=== PATIENT | female | born 1970 | race Caucasian/White ===

== ENCOUNTER 2016-06-28 00:22 | Emergency (ER) | payer OTHER, SELFPAY ==
[2016-06-28] MEDS ORDERED: Zofran 4 MG/2 ML VIAL IV ONE (00:53)
[2016-06-28] MEDS ORDERED: PROTONIX 40 MG IV IV ONE ×2 (00:53→01:04)
[2016-06-28] MEDS ORDERED: Sodium Chloride 0.9% 1000 ML 1,000 ML IV STA ×2 (00:53→02:28)
[2016-06-28] MEDS ORDERED: GI COCKTAIL 60ML (Belladonn/Phenobarb/Lidoc PO ONE (00:54)
[2016-06-28] MEDS ORDERED: Zofran 4 MG/2 ML VIAL ONE (01:03)
--- NOTE | 2016-06-28 01:03 | ERPHSYRPT ---
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 DENIES DIARRHEA OR ABDOMINAL PAIN, FEVER OR CHILLS. Timing/Duration: today Activities at Onset: none Quality: cramping Abdominal Pain Onset Location: epigastric Pain Radiation: no radiation Severity of Pain-Max: mild Severity of Pain-Current: mild Modifying Factors: Improves With: nothing Associated Symptoms: heartburn Previous symptoms: no prior history Allergies/Adverse Reactions: morphine Adverse Reaction (Severe, Verified 06/28/16 00:39) burning, no rash Home Medications: Atorvastatin Calcium [Lipitor 40Mg] 40 mg PO DAILY 09/24/15 [History] Duloxetine HCl [Cymbalta] 60 mg PO DAILY 09/24/15 [History] Metformin HCl 500 mg [Glucophage 500 MG] 500 mg PO DAILY 09/24/15 [History ] Nabumetone [Relafen] 500 mg PO BID 10/23/15 [History] Pregabalin 50 mg [Lyrica 50MG] 150 mg PO TID 10/23/15 [History] Cyclobenzaprine HCl [Cyclobenzaprine 10 mg Tablet] 06/28/16 [History] Hx Tetanus, Diphtheria Vaccination/Date Given: Yes Hx Influenza Vaccination/Date Given: No Hx Pneumococcal Vaccination/Date Given: No - Review of Systems Constitutional: No Fever, No Chills Eyes: No Symptoms Ears, Nose, & Throat: No Symptoms Respiratory: No Symptoms, No Cough, No Dyspnea Cardiac: No Symptoms, No Chest Pain, No Edema, No Syncope Abdominal/Gastrointestinal: Nausea, Vomiting, No Abdominal Pain, No Diarrhea Genitourinary Symptoms: No Symptoms, No Dysuria Musculoskeletal: No Symptoms, No Back Pain, No Neck Pain Skin: No Symptoms, No Rash Neurological: No Dizziness, No Focal Weakness, No Sensory Changes Psychological: No Symptoms Endocrine: No Symptoms All Other Systems: Reviewed and Negative - Past Medical History Pertinent Past Medical History: Yes Neurological History: Seizures ENT History: No Pertinent History Cardiac History: High Cholesterol, Hypertension Respiratory History: No Pertinent History, COPD Endocrine Medical History: Diabetes Type II Musculoskeletal History: Osteoarthritis History: No Pertinent History Psycho-Social History: Depression Female Reproductive Disorders: No Pertinent History Other Medical History: 3 hernias - Past Surgical History Past Surgical History: Yes Neuro Surgical History: No Pertinent History Cardiac: No Pertinent History Respiratory: No Pertinent History Gastrointestinal: Cholecystectomy Female Surgical History: Section, Tubal Ligation Other Surgical History: hand surgery removal of for obj - Social History Smoking Status: Current every day smoker How long have you smoked: 27 YRS Exposure to second hand smoke: Yes Drug Use: none Patient Lives Alone: No - Female History Hx Last Menstrual Period: 3 months Hx Now: No - Nursing Vital Signs Nursing Vital Signs: Initial Vital Signs Temperature 98.3 F Temperature Source Oral Pulse Rate 80 Respiratory Rate 16 Blood Pressure [Right Arm] 130/78 Pain Intensity 3 - Physical Exam General Appearance: no apparent distress, alert Eye Exam: PERRL/EOMI, eyes nml inspection Ears, Nose, Throat Exam: normal ENT inspection, pharynx normal, moist mucous membranes Neck Exam: normal inspection, non-tender, supple, full range of motion Respiratory Exam: normal breath sounds, lungs clear, No respiratory distress Cardiovascular Exam: regular rate/rhythm, normal heart sounds Gastrointestinal/Abdomen Exam: soft, normal bowel sounds, other (NONTENDER), No tenderness, No mass Back Exam: normal inspection, normal range of motion, No CVA tenderness, No vertebral tenderness Extremity Exam: normal inspection, normal range of motion, pelvis stable Neurologic Exam: alert, oriented x 3, cooperative, normal mood/affect, nml cerebellar function, sensation nml, No motor deficits Skin Exam: normal color, warm, dry SpO2 Interpretation: normal SpO2: 98 Oxygen Delivery: Room Air Ordered Tests: Active Orders 24 hr Category Date Time Status Clean Catch Urine Specimen STAT Care 06/28/16 01:00 Active IV Insertion STAT Care 06/28/16 00:53 Active AMYLASE Stat Lab 06/28/16 01:17 Completed CBC W DIFF Stat Lab 06/28/16 01:17 Completed CMP Stat Lab 06/28/16 01:17 Completed LIPASE Stat Lab 06/28/16 01:17 Completed UA W/ MICROSCOPIC Stat Lab 06/28/16 01:17 Completed Urine Triage Profile Stat Lab 06/28/16 01:17 Completed Medication Summary Discontinued Medications Generic Name Dose Route Start Last Admin Trade Name Chiquita PRN Reason Stop Dose Admin Al Hydrox/Mg Hydrox/Simethicone Confirm 06/28/16 01:04 Maalox Es 30 Ml Unit Dose Administered 06/28/16 01:05 Dose 30 ml .ROUTE .STK-MED ONE Belladonna Alkaloids/Phenobarbital 60 ml 06/28/16 00:54 06/28/16 01:16 Gi Cocktail 60ml (Belladonn/Phenobarb/Lidoc* PO 06/28/16 00:55 60 ml STAT ONE Administration Belladonna Alkaloids/Phenobarbital Confirm 06/28/16 01:05 Donnatol Liquid Administered 06/28/16 01:06 Dose 64.8 mg .ROUTE .STK-MED ONE Sodium Chloride 1,000 mls @ 999 mls/hr 06/28/16 00:53 06/28/16 01:17 Sodium Chloride 0.9% 1000 Ml IV 06/28/16 01:53 999 mls/hr .Q1H1M STA Administration Sodium Chloride Confirm 06/28/16 01:04 Sodium Chloride 0.9% 1000 Ml Administered 06/28/16 01:05 Dose 1,000 mls @ ud .ROUTE .STK-MED ONE Sodium Chloride 1,000 mls @ 999 mls/hr 06/28/16 02:28 06/28/16 02:41 Sodium Chloride 0.9% 1000 Ml IV 06/28/16 03:28 999 mls/hr .Q1H1M STA Administration Sodium Chloride Confirm 06/28/16 02:38 Sodium Chloride 0.9% 1000 Ml Administered 06/28/16 02:39 Dose 1,000 mls @ ud .ROUTE .STK-MED ONE Lidocaine HCl Confirm 06/28/16 01:04 Xylocaine Hcl Viscous * Administered 06/28/16 01:05 Dose 20 ml .ROUTE .STK-MED ONE Ondansetron HCl 4 mg 06/28/16 00:53 06/28/16 01:20 Zofran 4 Mg/2 Ml Vial IV 06/28/16 00:54 4 mg STAT ONE Administration Ondansetron HCl Confirm 06/28/16 01:03 Zofran 4 Mg/2 Ml Vial Administered 06/28/16 01:04 Dose 4 mg .ROUTE .STK-MED ONE Pantoprazole Sodium 40 mg 06/28/16 00:53 06/28/16 01:20 Protonix 40 Mg Iv IV 06/28/16 00:54 40 mg STAT ONE Administration Pantoprazole Sodium Confirm 06/28/16 01:04 Protonix 40 Mg Iv Administered 06/28/16 01:05 Dose 40 mg IV .STK-MED ONE Lab/Rad Data: Laboratory Result Diagrams 06/28/16 01:17 06/28/16 01:17 Laboratory Results 06/28/16 06/28/16 06/28/16 Range/Units 01:17 01:17 01:17 WBC 8.4 (4.0-10.5) K/mm3 RBC 5.23 (4.1-5.4) M/mm3 Hgb 14.6 (12.0-16.0) gm/dl Hct 44.2 (35-47) % MCV 84.5 (78-100) fl MCH 27.9 (26-32) pg MCHC 33.0 (32-36) g/dl RDW 13.6 (11.5-14.0) % Plt Count 249 (150-450) K/mm3 MPV 10.7 H (6-9.5) fl Gran % 57.4 (36.0-66.0) % Lymphocytes % 27.3 (24.0-44.0) % Monocytes % 11.1 (0.0-12.0) % Eosinophils % 3.6 (0.00-5.0) % Basophils % 0.6 (0.0-0.4) % Basophils # 0.05 (0-0.4) Sodium 142 (136-145) mEq/L Potassium 3.7 (3.5-5.1) mEq/L Chloride 107 (98-107) mEq/L Carbon Dioxide 25.4 (21-32) mEq/L Anion Gap 13.4 (5-15) MEQ/L BUN 13 (9-20) mg/dL Creatinine 0.89 (0.55-1.30) mg/dl Estimated GFR > 60 ML/MIN Glucose 99 (70-110) MG/DL Calcium 8.7 (8.5-10.1) mg/dL Total Bilirubin 0.3 (0.2-1.0) mg/dL AST 25 (15-37) U/L ALT 22 (12-78) U/L Alkaline Phosphatase 72 (46-116) U/L Serum Total Protein 7.0 (6.4-8.2) gm/dL Albumin 3.8 (3.4-5.0) g/dL Amylase 39 (25-115) U/L Lipase 127 (73-393) U/L Ur Collection Type Urine Color (YELLOW) Urine Appearance (CLEAR) Urine pH (5-6) Ur Specific Hope (1.005-1.025) Urine Protein (Negative) Urine Glucose (UA) (NEGATIVE) mg/dL Urine Ketones (NEGATIVE) Urine Nitrite (NEGATIVE) Urine Bilirubin (NEGATIVE) Urine Urobilinogen (0-1) mg/dL Urine WBC (Auto) (NEGATIVE) Urine RBC (Auto) (0-5) Michelet/ul Urine Microscopic RBC (0-2) /HPF Urine Microscopic WBC (0-5) /HPF Ur Epithelial Cells (FEW) /HPF Urine Bacteria (NEGATIVE) /HPF Urine Opiates Level NEG. (NEGATIVE) Ur Methadone NEG. (NEGATIVE) Urine Barbiturates NEG. (NEGATIVE) Ur Phencyclidine (PCP) NEG. (NEGATIVE) Urine Amphetamine NEG. (NEGATIVE) U Benzodiazepine Level NEG. (NEGATIVE) Urine Cocaine NEG. (NEGATIVE) Urine Marijuana (THC) NEG. (NEGATIVE) Specimen Received 06/28/16 Range/Units 01:17 WBC (4.0-10.5) K/mm3 RBC (4.1-5.4) M/mm3 Hgb (12.0-16.0) gm/dl Hct (35-47) % MCV (78-100) fl MCH (26-32) pg MCHC (32-36) g/dl RDW (11.5-14.0) % Plt Count (150-450) K/mm3 MPV (6-9.5) fl Gran % (36.0-66.0) % Lymphocytes % (24.0-44.0) % Monocytes % (0.0-12.0) % Eosinophils % (0.00-5.0) % Basophils % (0.0-0.4) % Basophils # (0-0.4) Sodium (136-145) mEq/L Potassium (3.5-5.1) mEq/L Chloride (98-107) mEq/L Carbon Dioxide (21-32) mEq/L Anion Gap (5-15) MEQ/L BUN (9-20) mg/dL Creatinine (0.55-1.30) mg/dl Estimated GFR ML/MIN Glucose (70-110) MG/DL Calcium (8.5-10.1) mg/dL Total Bilirubin (0.2-1.0) mg/dL AST (15-37) U/L ALT (12-78) U/L Alkaline Phosphatase (46-116) U/L Serum Total Protein (6.4-8.2) gm/dL Albumin (3.4-5.0) g/dL Amylase (25-115) U/L Lipase (73-393) U/L Ur Collection Type CLEAN CATCH Urine Color YELLOW (YELLOW) Urine Appearance CLEAR (CLEAR) Urine pH 5.5 (5-6) Ur Specific Hope 1.015 (1.005-1.025) Urine Protein NEGATIVE (Negative) Urine Glucose (UA) NEGATIVE (NEGATIVE) mg/dL Urine Ketones NEGATIVE (NEGATIVE) Urine Nitrite NEGATIVE (NEGATIVE) Urine Bilirubin NEGATIVE (NEGATIVE) Urine Urobilinogen 0.2 (0-1) mg/dL Urine WBC (Auto) NEGATIVE (NEGATIVE) Urine RBC (Auto) SMALL (0-5) Michelet/ul Urine Microscopic RBC 5-10 (0-2) /HPF Urine Microscopic WBC 0-2 (0-5) /HPF Ur Epithelial Cells MODERATE (FEW) /HPF Urine Bacteria FEW (NEGATIVE) /HPF Urine Opiates Level (NEGATIVE) Ur Methadone (NEGATIVE) Urine Barbiturates (NEGATIVE) Ur Phencyclidine (PCP) (NEGATIVE) Urine Amphetamine (NEGATIVE) U Benzodiazepine Level (NEGATIVE) Urine Cocaine (NEGATIVE) Urine Marijuana (THC) (NEGATIVE) Specimen Received 06/28/165 - Progress Progress: improved Progress Note: 06/28/16 00:58 PATIENT GIVEN IV NORMAL SALINE 1 LITER BOLUS X 2 ZOFRAN 4MG , PROTONIX 40MG IV 06/28/16 03:25 Counseled pt/family regarding: lab results, diagnosis, need for follow-up - Departure Time of Disposition: 03:35 Departure Disposition: Home Clinical Impression: ACUTE GASTRITIS Condition: Stable Critical Care Time: No Referrals: KHALIDA RICHARDS [Primary Care Provider] - Additional Instructions: ZOFRAN EVERY 4 HOURS NEEDED FOR NAUSEA. PEPCID 20MG TWICE DAILY FOR GASTRIC IRRITATION. CONSULT YOUR FAMILY PHYSICIAN FOR EVALUATION IN 1 WEEK. Prescriptions: Ondansetron [Zofran Odt] 4 mg PO Q4H PRN PRN #6 tab.rapdis PRN Reason: Nausea Famotidine 20 mg [Pepcid 20 MG] 20 mg PO BID #30 tablet
[2016-06-28] MEDS ORDERED: XYLOCAINE HCl Viscous ONE (01:04)
[2016-06-28] MEDS ORDERED: Sodium Chloride 0.9% 1000 ML 1,000 ML ONE ×2 (01:04→02:38)
[2016-06-28] MEDS ORDERED: MAALOX ES 30 ML UNIT DOSE ONE (01:04)
[2016-06-28] MEDS ORDERED: Donnatol Liquid ONE (01:05)
[2016-06-28 01:20] LABS: BASOPHIL % 0.6 % (0.0-0.4); Eosinophil % 3.6 % (0.00-5.0); Granulocytes % 57.4 % (36.0-66.0); Lymphocytes % 27.3 % (24.0-44.0); Mean Cell Volume 84.5 fl (78-100); Mean Corpuscular Hemoglobin 27.9 pg (26-32); Mean Platelet Volume 10.7 fl (6-9.5); Monocytes % 11.1 % (0.0-12.0); Platelet Count 249 K/mm3 (150-450); Red Blood Count 5.23 M/mm3 (4.1-5.4); Red Cell Distribution Width 13.6 % (11.5-14.0); White Blood Count 8.4 K/mm3 (4.0-10.5)
[2016-06-28 01:36] LABS: Bacteria FEW /HPF (NEGATIVE); COMPLETE URINE MICROSCOPIC? YES; Collection Type CLEAN CATCH; Epithelial Cells MODERATE /HPF (FEW); Ph 5.5 (5-6); WBC 0-2 /HPF (0-5)
[2016-06-28 01:39] LABS: ALBUMIN 3.8 g/dL (3.4-5.0); ALKALINE PHOSPHATASE 72 U/L (46-116); ANION GAP 13.4 MEQ/L (5-15); BILIRUBIN,TOTAL 0.3 mg/dL (0.2-1.0); BLOOD UREA NITROGEN 13 mg/dL (9-20); CHLORIDE 107 mEq/L (98-107); Carbon Dioxide 25.4 mEq/L (21-32); Glucose 99 MG/DL (70-110); LIPASE 127 U/L (73-393); Potassium 3.7 mEq/L (3.5-5.1); SGOT/AST 25 U/L (15-37); SGPT/ALT 22 U/L (12-78); SODIUM 142 mEq/L (136-145)
[2016-06-28 03:30] VITALS: O2SAT 98
[2016-06-28 03:52] VITALS: BP 132/76; PULSE 81
== END 2016-06-28 03:52 | disposition home or self-care (01) ==
LOC: ED 00:22
DX: K29.70 Gastritis, unspecified, without bleeding (principal)
CPT/HCPCS: 36000; 36415; 80053; 80307; 81000; 82150; 83690; 85025; 96360; 96361; 96374; 96375; 99284; J2405; A9270-GY

== ENCOUNTER 2017-05-20 12:46 | Emergency (ER) | payer OTHER ==
[2017-05-20] MEDS ORDERED: Nitrostat 0.4 MG (ED) SL ONE (13:06)
[2017-05-20] MEDS ORDERED: BABY ASPIRIN 81 MG CHEW PO ONE (13:06)
--- NOTE | 2017-05-20 13:06 | ERPHSYRPT ---
- History of Present Illness Time Seen by Provider: 05/20/17 12:59 Historian: patient Exam Limitations: no limitations Patient Subjective Stated Complaint: pt walked in co cp since 0400 this morning , no other cos Triage Nursing Assessment: pt arrrived per wc, resp easy,skin w/d/p,chest clear , no edema noted Physician History: The patient is a morbidly obese 46-year-old female with her mother complaining of left-sided chest pain with radiation down her left arm since 4:30 this morning or approximately 7 hours ago. She denies shortness of breath, nausea, or sweating. She was awaken from sleep with the pain. Her past medical history is significant for diabetes, hypertension, high cholesterol, GERD, and depression. Timing/Duration: today, hour(s) (7) Activities at Onset: sleep Quality: aching, sharpness Location: substernal Chest Pain Radiation: arm Severity of Pain-Max: moderate Severity of Pain-Current: moderate Modifying Factors: Improves With: nothing Associated Symptoms: No nausea, No vomiting, No shortness of breath, No cough, No diaphoresis Prior Chest Pain/Cardiac Workup: no prior chest pain Nitro Today/Relief: no nitro taken today Aspirin Treatment Today: 81 mg x 4, provided by ED Allergies/Adverse Reactions: morphine Adverse Reaction (Severe, Verified 05/20/17 12:55) burning, no rash Home Medications: Atorvastatin Calcium [Lipitor 40Mg] 40 mg PO DAILY 09/24/15 [History] Duloxetine HCl [Cymbalta] 60 mg PO DAILY 09/24/15 [History] Metformin HCl 500 mg [Glucophage 500 MG] 500 mg PO DAILY 09/24/15 [History ] Nabumetone [Relafen] 500 mg PO BID 10/23/15 [History] Pregabalin 50 mg [Lyrica 50MG] 150 mg PO TID 10/23/15 [History] Cyclobenzaprine HCl [Cyclobenzaprine 10 mg Tablet] 10 mg BID 06/28/16 [History] Aripiprazole 10 mg [Abilify 10 MG] 10 mg DAILY 05/20/17 [History] Lisinopril 10 mg [Zestril 10 MG] 10 mg DAILY 05/20/17 [History] Hx Tetanus, Diphtheria Vaccination/Date Given: Yes Hx Influenza Vaccination/Date Given: No Hx Pneumococcal Vaccination/Date Given: No Immunizations Up to Date: Yes - Review of Systems Constitutional: No Fever, No Chills Eyes: No Symptoms Ears, Nose, & Throat: No Symptoms Respiratory: No Cough, No Dyspnea Cardiac: Chest Pain, No Edema, No Syncope Abdominal/Gastrointestinal: No Abdominal Pain, No Nausea, No Vomiting, No Diarrhea Genitourinary Symptoms: No Dysuria Musculoskeletal: No Back Pain, No Neck Pain Skin: No Rash Neurological: No Dizziness, No Focal Weakness, No Sensory Changes Psychological: No Symptoms Endocrine: No Symptoms Hematologic/Lymphatic: No Symptoms Immunological/Allergic: No Symptoms All Other Systems: Reviewed and Negative - Past Medical History Pertinent Past Medical History: Yes Neurological History: Migraines, Peripheral Neuropathy, Seizures, Other ENT History: No Pertinent History Cardiac History: Hypertension Respiratory History: Emphysema Endocrine Medical History: Diabetes Type II Musculoskeletal History: Degenerative Disk Disease, Osteoarthritis History: No Pertinent History Psycho-Social History: Depression Female Reproductive Disorders: No Pertinent History Other Medical History: history of back pain, B shoulder pain in the rotator cuff muscles. - Past Surgical History Past Surgical History: Yes Neuro Surgical History: No Pertinent History Cardiac: No Pertinent History Respiratory: No Pertinent History Gastrointestinal: Cholecystectomy Female Surgical History: Section, Tubal Ligation Other Surgical History: hand surgery removal of for obj - Social History Smoking Status: Current every day smoker How long have you smoked: 27 YRS Exposure to second hand smoke: Yes Drug Use: none Patient Lives Alone: No - Female History Hx Last Menstrual Period: 04/14 Hx Now: No - Nursing Vital Signs Nursing Vital Signs: Initial Vital Signs Pulse Rate 96 H 05/20/17 13:30 Blood Pressure 161/107 05/20/17 13:30 Pain Scale Pain Intensity 10 - Physical Exam General Appearance: no apparent distress, alert Eye Exam: PERRL/EOMI, eyes nml inspection Ears, Nose, Throat Exam: normal ENT inspection Respiratory Exam: chest tenderness (left anterior chest pain, palpation reproduces pt's pain) Cardiovascular Exam: regular rate/rhythm, normal heart sounds Gastrointestinal/Abdomen Exam: soft, other (obese) Pelvic Exam: not done Rectal Exam: not done Back Exam: normal inspection, No CVA tenderness, No vertebral tenderness Extremity Exam: normal inspection, normal range of motion Neurologic Exam: alert, oriented x 3, cooperative, normal mood/affect, sensation nml, No motor deficits Skin Exam: normal color, warm, dry SpO2 Interpretation: normal - Course EKG Interpreted by Me: RATE, Sinus Rhythm, NORMAL AXIS, NORMAL INTERVALS, NORMAL QRS, NORMAL ST-T, Other (comp EKG 03/16/16.) - Radiology Exams Chest X-ray Interpretation: Reviewed by me, Teleradiologist Report, Negative (per Dr Sims) Ordered Tests: Active Orders 24 hr Category Date Time Status Home Health Clinical Supervisor STAT Care 05/20/17 13:07 Active EKG-ER Only STAT Care 05/20/17 13:06 Active IV Insertion STAT Care 05/20/17 13:06 Active CHEST 2 VIEWS (PA AND LAT) Stat Exams 05/20/17 13:06 Completed CBC W DIFF Stat Lab 05/20/17 13:31 Completed CMP Stat Lab 05/20/17 13:31 Completed NT PRO BNP Stat Lab 05/20/17 13:31 Completed TROPONIN Q3H Lab 05/20/17 13:31 Completed TROPONIN Q3H Lab 05/20/17 16:15 Ordered TROPONIN Q3H Lab 05/20/17 19:15 Ordered TROPONIN Q3H Lab 05/20/17 22:15 Ordered TROPONIN Q3H Lab 05/21/17 01:15 Ordered Medication Summary Generic Name Dose Route Start Last Admin Trade Name Freq PRN Reason Stop Dose Admin Nitroglycerin 0.4 mg 05/20/17 13:39 05/20/17 13:40 Nitrostat 0.4 Mg Tablet SL 06/19/17 13:38 0.4 mg PRN PRN Administration CHEST PAIN Discontinued Medications Generic Name Dose Route Start Last Admin Trade Name Freq PRN Reason Stop Dose Admin Al Hydrox/Mg Hydrox/Simethicone Confirm 05/20/17 13:53 Maalox Es 30 Ml Unit Dose Administered 05/20/17 13:54 Dose 30 ml .ROUTE .STK-MED ONE Aspirin 324 mg 05/20/17 13:06 05/20/17 13:20 Baby Aspirin 81 Mg Chew PO 05/20/17 13:07 324 mg STAT ONE Administration Lidocaine HCl Confirm 05/20/17 13:52 Xylocaine Hcl Viscous * Administered 05/20/17 13:53 Dose 15 ml .ROUTE .STK-MED ONE Magnesium Hydroxide 45 ml 05/20/17 14:39 Gi Cocktail 45 Ml (Maalox/Lidocaine) PO 05/20/17 14:40 STAT ONE Nitroglycerin 0.4 mg 05/20/17 13:06 05/20/17 13:20 Nitrostat 0.4 Mg (Ed) SL 05/20/17 13:07 0.4 mg STAT ONE Administration Lab/Rad Data: Laboratory Result Diagrams 05/20/17 13:31 05/20/17 13:31 Laboratory Results 05/20/17 05/20/17 05/20/17 Range/Units 13:31 13:31 13:31 WBC 9.9 (4.0-10.5) K/mm3 RBC 5.51 H (4.1-5.4) M/mm3 Hgb 15.7 (12.0-16.0) gm/dl Hct 46.2 (35-47) % MCV 83.8 (78-100) fl MCH 28.4 (26-32) pg MCHC 34.0 (32-36) g/dl RDW 13.7 (11.5-14.0) % Plt Count 308 (150-450) K/mm3 MPV 11.4 H (6-9.5) fl Sodium 143 (136-145) mEq/L Potassium 3.7 (3.5-5.1) mEq/L Chloride 105 (98-107) mEq/L Carbon Dioxide 27.8 (21-32) mEq/L Anion Gap 14.0 (5-15) MEQ/L BUN 5 L (9-20) mg/dL Creatinine 0.85 (0.55-1.30) mg/dl Estimated GFR > 60 ML/MIN Glucose 174 H (70-110) MG/DL Calcium 8.7 (8.5-10.1) mg/dL Total Bilirubin 0.30 (0.2-1.0) mg/dL AST 28 (15-37) U/L Alkaline Phosphatase 84 (46-116) U/L Troponin I 0.136 H* (0.000-0.056) ng/ml NT-Pro-B Natriuret Pep 26 (0-125) pg/ml Serum Total Protein 7.3 (6.4-8.2) gm/dL Albumin 3.9 (3.4-5.0) g/dL - Progress Progress Note: 05/20/17 14:46 The patient was given aspirin 324 milligrams chewable and nitroglycerin 0.4 mg sublingual 3 without relief of her chest pain. She refused a GI cocktail. - Departure Time of Disposition: 15:03 Departure Disposition: Transfer (transfer to [facility] per Dr Caal) Clinical Impression: Chest pain, Elevated troponin Condition: Stable Critical Care Time: No Referrals: KHALIDA RICHARDS [Primary Care Provider] - Additional Instructions: You have chest pain. You also have an elevated troponin level. You were given aspirin 324 mg chewable orally and nitroglycerin 0.4 mg sublingual 3 in the ER. You are also placed upon a nitroglycerin drip. You were given Lovenox 110 units subcutaneous. You're being transferred to regional ER per Dr. Caal.
--- NOTE | 2017-05-20 13:29 | XRAY ---
Indication: Cough and chest pain. Comparison: March 16, 2016. PA/lateral chest again demonstrates normal heart and lungs with stable lingular calcified granuloma. Bony thorax intact with mild degenerative changes. No new/acute findings.
[2017-05-20] MEDS: Nitrostat 0.4 MG Tablet SL PRN ×2 (13:30→13:40)
[2017-05-20] MEDS ORDERED: XYLOCAINE HCl Viscous ONE (13:52)
[2017-05-20] MEDS ORDERED: MAALOX ES 30 ML UNIT DOSE ONE (13:53)
[2017-05-20 14:01] LABS: ALBUMIN 3.9 g/dL (3.4-5.0); ALKALINE PHOSPHATASE 84 U/L (46-116); BLOOD UREA NITROGEN 5 mg/dL (9-20); CHLORIDE 105 mEq/L (98-107); Calcium 8.7 mg/dL (8.5-10.1); Carbon Dioxide 27.8 mEq/L (21-32); Creatinine 1 0.85 mg/dl (0.55-1.30); EST GLOMERULAR FILTRATION RATE > 60 ML/MIN; Glucose 174 MG/DL (70-110); NT PRO BNP 26 pg/ml (0-125); Potassium 3.7 mEq/L (3.5-5.1); SGOT/AST 28 U/L (15-37); SODIUM 143 mEq/L (136-145); Total Protein 7.3 gm/dL (6.4-8.2)
[2017-05-20 14:24] VITALS: O2SAT 95
[2017-05-20 14:30] LABS: Hematocrit 46.2 % (35-47); Hemoglobin 15.7 gm/dl (12.0-16.0); Mean Cell Volume 83.8 fl (78-100); Mean Platelet Volume 11.4 fl (6-9.5); Platelet Count 308 K/mm3 (150-450); Red Blood Count 5.51 M/mm3 (4.1-5.4); Red Cell Distribution Width 13.7 % (11.5-14.0); White Blood Count 9.9 K/mm3 (4.0-10.5)
[2017-05-20 14:31] LABS: Mean Corpuscular Hemoglobin 28.4 pg (26-32)
[2017-05-20] MEDS ORDERED: GI COCKTAIL 45 ML (Maalox/Lidocaine) PO ONE (14:39)
[2017-05-20] MEDS ORDERED: ENOXAPARIN SODIUM SQ ONE ×2 (14:58→15:09)
[2017-05-20 14:59] LABS: BASOPHIL % 0.5 % (0.0-0.4); Eosinophil % 2.8 % (0.00-5.0); Granulocyte Absolute (ANC) 6.04 (1.4-6.9); Granulocytes % 60.9 % (36.0-66.0); Lymphocytes % 27.1 % (24.0-44.0); Monocytes % 8.7 % (0.0-12.0)
[2017-05-20 15:00] LABS: Basophil (Absolute #) 0.05 (0-0.4); Eosinophil (Absolute #) 0.28 (0-0.5); Lymphocyte (Absolute #) 2.69 (1.0-4.6); Monocyte (Absolute #) 0.86 (0.0-1.3)
[2017-05-20] MEDS ORDERED: Ntg 0.2MG/Ml in D5W GLASS*** 250 ML IV PRN (15:02)
[2017-05-20] MEDS ORDERED: Ntg 0.2MG/Ml in D5W GLASS*** 250 ML IV ONE (15:07)
[2017-05-20 15:40] VITALS: BP 150/104; PULSE 75
[2017-05-20 22:04] LABS: SGPT/ALT 42 U/L (12-78)
== END 2017-05-20 15:45 | disposition short-term general hospital (02) ==
LOC: ED 12:46
DX: R07.9 Chest pain, unspecified (principal); R77.8 Other specified abnormalities of plasma proteins; Z79.899 Other long term (current) drug therapy; E11.9 Type 2 diabetes mellitus without complications
CPT/HCPCS: 36000; 36415; 71046; 80053; 83880; 84484; 85025; 93005; 93041; 96365; 99285; J1650; A9270-GY

== ENCOUNTER 2019-03-09 10:14 | Emergency (ER) | payer MEDICAID, OTHER ==
--- NOTE | 2019-03-09 10:18 | ERPHSYRPT ---
- History of Present Illness Time Seen by Provider: 03/09/19 10:18 Source: patient Exam Limitations: no limitations Physician History: 48 y/o white female presents with bilat lower back pain for 4 days. no flank pain and no urinary sx. pt denies fall or acute trauma. pt woke up with sx 4 days ago. not relieved on her muscle relaxant zanaflex. pt states she has health insurance issues and it is too expensive for her to see her pcp. Timing/Duration: day(s) (4) Method of Injury: other (no injury) Quality: aching Back Pain Location: lumbar spine, paraspinous muscles Severity of Pain-Max: mild Severity of Pain-Current: mild Modifying Factors: Improves With: movement Associated Symptoms: lower back pain, muscle spasms Previous symptoms: same symptoms as today Allergies/Adverse Reactions: morphine Adverse Reaction (Severe, Verified 03/09/19 10:22) burning, no rash Home Medications: Duloxetine HCl [Cymbalta] 60 mg PO DAILY 09/24/15 [History] Metformin HCl 500 mg [Glucophage 500 MG] 1,000 mg PO BID 09/24/15 [History ] Lisinopril 10 mg [Zestril 10 MG] 10 mg DAILY 05/20/17 [History] Aspirin EC 81 mg [Ecotrin 81 mg] 81 mg PO DAILY 03/09/19 [History] Buspirone HCl 7.5 mg PO BID 03/09/19 [History] Famotidine 20 mg [Pepcid 20 MG] 40 mg PO DAILY 03/09/19 [History] Gabapentin 300 mg PO TID 03/09/19 [History] Oxybutynin Chloride [Oxybutynin Chloride ER] 10 mg PO DAILY 03/09/19 [History] Tizanidine HCl 4 mg PO BID 03/09/19 [History] Hx Tetanus, Diphtheria Vaccination/Date Given: Yes Hx Influenza Vaccination/Date Given: No Hx Pneumococcal Vaccination/Date Given: No - Review of Systems Constitutional: No Symptoms Eyes: No Symptoms Ears, Nose, & Throat: No Symptoms Respiratory: No Symptoms Cardiac: No Symptoms Abdominal/Gastrointestinal: No Symptoms Genitourinary Symptoms: No Symptoms Musculoskeletal: Back Pain Skin: No Symptoms Neurological: No Symptoms Psychological: No Symptoms Endocrine: No Symptoms Hematologic/Lymphatic: No Symptoms Immunological/Allergic: No Symptoms All Other Systems: Reviewed and Negative - Past Medical History Pertinent Past Medical History: Yes Neurological History: Migraines, Peripheral Neuropathy, Seizures, Other ENT History: No Pertinent History Cardiac History: Hypertension Respiratory History: Emphysema Endocrine Medical History: Diabetes Type II Musculoskeletal History: Degenerative Disk Disease, Osteoarthritis History: No Pertinent History Psycho-Social History: Depression Female Reproductive Disorders: No Pertinent History Other Medical History: history of back pain, B shoulder pain in the rotator cuff muscles. - Past Surgical History Past Surgical History: Yes Neuro Surgical History: No Pertinent History Cardiac: No Pertinent History Respiratory: No Pertinent History Gastrointestinal: Cholecystectomy Female Surgical History: Section, Tubal Ligation Other Surgical History: hand surgery removal of for obj - Social History Smoking Status: Current every day smoker How long have you smoked: 27 YRS Exposure to second hand smoke: Yes Drug Use: none Patient Lives Alone: No - Nursing Vital Signs Nursing Vital Signs: Initial Vital Signs Temperature 97.6 F 03/09/19 10:22 Pulse Rate 78 03/09/19 10:22 Blood Pressure 146/93 03/09/19 10:22 O2 Sat by Pulse Oximetry 97 03/09/19 10:22 Pain Scale Pain Intensity [Posterior 7 Distal Back] Pain Intensity 7 - Physical Exam General Appearance: no apparent distress, alert, anxiety Eye Exam: PERRL/EOMI, eyes nml inspection Ears, Nose, Throat Exam: normal ENT inspection, moist mucous membranes Neck Exam: normal inspection, non-tender, supple, full range of motion Respiratory Exam: airway intact, No chest tenderness, No respiratory distress Gastrointestinal Exam: soft, normal bowel sounds, No tenderness Pelvic Exam: deferred Rectal Exam: not done Back Exam: normal inspection, normal range of motion, muscle spasm, No CVA tenderness, No vertebral tenderness Extremity Exam: normal inspection, normal range of motion, pelvis stable Neurologic Exam: alert, oriented x 3, cooperative, senior asic design engineer II-XII nml as tested Skin Exam: normal color, warm, dry Lymphatic Exam: No adenopathy SpO2 Interpretation: normal O2 Delivery: Room Air - Course Nursing assessment & vital signs reviewed: Yes - Progress Counseled pt/family regarding: diagnosis, need for follow-up - Departure Departure Disposition: Home Clinical Impression: Low back pain, Muscle spasm of back Condition: Stable Critical Care Time: No Referrals: LEMUEL RAMOS [Primary Care Provider] - Additional Instructions: stop current tizanidine muscle relaxant. resume after soma completed. follow up with primary doctor for persistent symptoms Prescriptions: Carisoprodol 350 mg [Soma 350 mg] 350 mg PO Q12H PRN PRN #8 tablet MDD 2 PRN Reason: Muscle Spasms Prednisone 10 mg [Deltasone 10 mg] 10 mg PO TID #12 tablet
[2019-03-09 10:30] VITALS: BP 146/93; PULSE 78; O2SAT 97
== END 2019-03-09 10:50 | disposition home or self-care (01) ==
LOC: ED 10:14
DX: M54.5 Low back pain (principal); M62.830 Muscle spasm of back
CPT/HCPCS: 99283

== ENCOUNTER 2019-05-25 19:42 | Emergency (ER) | payer OTHER ==
[2019-05-25] MEDS ORDERED: XYLOCAINE 1% HCL 20 ML MDV IJ ONE (19:43)
--- NOTE | 2019-05-25 19:44 | ERPHSYRPT ---
- History of Present Illness Time Seen by Provider: 05/25/19 19:44 Historian: patient Exam Limitations: no limitations Physician History: She is a 48-year-old obese white female who has a history of migraine headaches and presents with over a 3-day history of sinus pressure and sinus headache, sinus congestion cough and sore throat. The patient denies chest pain and she denies abdominal pain. Patient denies nausea vomiting diarrhea. Patient has taken morphine in the past but the reaction is one of burning but no rash. Timing/Duration: day(s) Activities at Onset: none Quality: aching Abdominal Pain Onset Location: other Pain Radiation: no radiation Severity of Pain-Max: none Severity of Pain-Current: none Modifying Factors: Improves With: nothing Associated Symptoms: headache, other (Cough and sinus congestion) Previous symptoms: no prior history Allergies/Adverse Reactions: morphine Adverse Reaction (Severe, Verified 05/25/19 20:28) burning, no rash Home Medications: Duloxetine HCl [Cymbalta] 60 mg PO DAILY 09/24/15 [History] Metformin HCl 500 mg [Glucophage 500 MG] 1,000 mg PO BID 09/24/15 [History ] Lisinopril 10 mg [Zestril 10 MG] 10 mg PO DAILY 05/20/17 [History] Aspirin EC 81 mg [Ecotrin 81 mg] 81 mg PO DAILY 03/09/19 [History] Buspirone HCl 7.5 mg PO BID 03/09/19 [History] Gabapentin 300 mg PO TID 03/09/19 [History] Oxybutynin Chloride [Oxybutynin Chloride ER] 10 mg PO DAILY 03/09/19 [History] Tizanidine HCl 4 mg PO BID 03/09/19 [History] Hx Tetanus, Diphtheria Vaccination/Date Given: Yes Hx Influenza Vaccination/Date Given: No Hx Pneumococcal Vaccination/Date Given: No - Review of Systems Constitutional: No Symptoms Eyes: No Symptoms Ears, Nose, & Throat: Ear Pain, Nose Congestion, Throat Pain Respiratory: Cough Cardiac: No Symptoms Abdominal/Gastrointestinal: No Symptoms Genitourinary Symptoms: No Symptoms Musculoskeletal: No Symptoms Skin: No Symptoms Neurological: No Symptoms Psychological: No Symptoms Endocrine: No Symptoms Hematologic/Lymphatic: No Symptoms Immunological/Allergic: No Symptoms All Other Systems: Reviewed and Negative - Past Medical History Pertinent Past Medical History: Yes Neurological History: Migraines, Peripheral Neuropathy, Seizures, Other ENT History: No Pertinent History Cardiac History: Hypertension Respiratory History: Emphysema Endocrine Medical History: Diabetes Type II Musculoskeletal History: Degenerative Disk Disease, Osteoarthritis History: No Pertinent History Psycho-Social History: Depression Female Reproductive Disorders: No Pertinent History Other Medical History: history of back pain, B shoulder pain in the rotator cuff muscles. - Past Surgical History Past Surgical History: Yes Neuro Surgical History: No Pertinent History Cardiac: No Pertinent History Respiratory: No Pertinent History Gastrointestinal: Cholecystectomy Female Surgical History: Section, Tubal Ligation Other Surgical History: hand surgery removal of for obj - Social History Smoking Status: Current every day smoker How long have you smoked: 27 YRS Exposure to second hand smoke: Yes Drug Use: none Patient Lives Alone: No - Nursing Vital Signs Nursing Vital Signs: Initial Vital Signs Temperature 98.4 F 05/25/19 20:16 Pulse Rate 96 H 05/25/19 20:16 Respiratory Rate 19 05/25/19 20:16 Blood Pressure 145/95 05/25/19 20:16 O2 Sat by Pulse Oximetry 99 05/25/19 20:16 Pain Scale Pain Intensity 8 - Physical Exam General Appearance: no apparent distress, alert, anxiety Eye Exam: PERRL/EOMI, eyes nml inspection Ears, Nose, Throat Exam: normal ENT inspection, TMs normal, moist mucous membranes Neck Exam: normal inspection, non-tender, supple, full range of motion Respiratory Exam: normal breath sounds, lungs clear, airway intact, No chest tenderness, No respiratory distress Cardiovascular Exam: regular rate/rhythm, normal heart sounds, normal peripheral pulses Gastrointestinal/Abdomen Exam: soft, normal bowel sounds, No tenderness, No guarding, No rebound Pelvic Exam: not done Rectal Exam: not done Back Exam: normal inspection, normal range of motion, No CVA tenderness, No vertebral tenderness Extremity Exam: normal inspection, normal range of motion, pelvis stable Neurologic Exam: alert, oriented x 3, cooperative, learning and development consultant II-XII nml as tested Skin Exam: normal color, warm, dry Lymphatic Exam: No adenopathy SpO2 Interpretation: normal O2 Delivery: Room Air - Course Nursing assessment & vital signs reviewed: Yes Ordered Tests: Medication Summary Generic Name Dose Route Start Last Admin Trade Name Freq PRN Reason Stop Dose Admin Hydrocodone Bitart/Acetaminophen 10 ml 05/25/19 21:43 Hydrocodone-Acetamin 2.5-108/5 Ml Solution PO 05/25/19 21:44 STAT STA Ceftriaxone Sodium 1,000 mg 05/25/19 21:42 Rocephin 1000 Mg Inj IM 05/25/19 21:43 STAT ONE Methylprednisolone Sodium Succinate 125 mg 05/25/19 21:42 Solu-Medrol 125 Mg IM 05/25/19 21:43 STAT ONE - Progress Progress: unchanged Progress Note: 05/25/19 21:51 Patient's mother is also a patient here at the same time. She is the driver starting gate for both of them. We are giving her 10 mL of unopened hydrocodone/ acetaminophen liquid for her cough. She will take that medication when she gets home. Counseled pt/family regarding: diagnosis, need for follow-up, rad results - Departure Departure Disposition: Home Clinical Impression: Bronchitis, Sinusitis Condition: Stable Critical Care Time: No Referrals: LEMUEL RAMOS [Primary Care Provider] - Additional Instructions: Drink plenty of fluids. Take your medication as prescribed. Monitor your blood sugar levels closely while taking the prednisone. Follow-up with your primary care physician for persistent symptoms. Prescriptions: Azithromycin 250 mg [Zithromax 250 MG TABLET] 250 mg PO ZPACK #6 tablet Hydrocodone Bit/Acetaminophen [Hydrocodone-Acetaminophen Soln] 10 ml PO Q6H # 120 ml
[2019-05-25] MEDS ORDERED: solu-MEDROL 125 MG IM ONE (21:42)
[2019-05-25] MEDS ORDERED: Rocephin 1000 MG INJ IM ONE (21:42)
[2019-05-25] MEDS ORDERED: HYDROCODONE-ACETAMIN 2.5-108/5 ML SOLUTION PO STA (21:43)
[2019-05-25] MEDS ORDERED: HYDROCODONE-ACETAMIN 2.5-108/5 ML SOLUTION ONE (21:53)
[2019-05-25] MEDS ORDERED: solu-MEDROL 125 MG ONE (21:53)
[2019-05-25] MEDS ORDERED: Rocephin 1000 MG INJ ONE (21:54)
[2019-05-25 22:41] VITALS: BP 143/97; PULSE 77; O2SAT 100
== END 2019-05-25 22:41 | disposition home or self-care (01) ==
LOC: ED 19:42
DX: J40 Bronchitis, not specified as acute or chronic (principal); J32.9 Chronic sinusitis, unspecified
CPT/HCPCS: 96372; 99284; J0696; J2930; A9270-GY

== ENCOUNTER 2020-12-01 09:53 | Emergency (ER) | payer OTHER ==
[2020-12-01] MEDS ORDERED: TORAdol 30 mg Injection IV ONE (10:30)
[2020-12-01] MEDS ORDERED: BENADRYL 50 MG/ML IV ONE (10:30)
[2020-12-01] MEDS ORDERED: Reglan 10 MG/2 ML IV ONE (10:30)
[2020-12-01] MEDS ORDERED: TYLENOL 325 MG PO ONE (10:30)
--- NOTE | 2020-12-01 10:45 | ERPHSYRPT ---
- History of Present Illness Time Seen by Provider: 12/01/20 10:03 Source: patient Exam Limitations: no limitations Patient Subjective Stated Complaint: "migraine headache since yesterday" COVID exposure 1 week ago Triage Nursing Assessment: pt to ED c/o DURBIN 10/04 and increasing SOB since yesterday. pt wears 2 L NC at home at night and had to wear during the day yesterday for SOB. O2 sat 100% on arrival to ED. speaking in full sentences, does not appear in resp distress currently. no hx migraines reported. Physician History: 50 years old female with multiple medical problems noting CAD status post stenting, diabetes mellitus, hypertension, hyperlipidemia, chronic respiratory failure secondary to COPD on 2 L oxygen, tobacco abuse, congestive heart failure, unvaccinated against COVID-19 presented in the ER with multiple symptoms. Patient reports since yesterday having some nasal/sinus congestion, mild sore throat and increased productive cough than usual smoker cough with some increasing shortness of breath. Patient reports she usually does not wear oxygen during daytime but since yesterday she feels more short of breath without oxygen than usual subjective feeling of fever and chills. Also having headache moderate to severe intensity sharp nature without any visual disturbance, numbness tingling or focal weakness. No neck pain but does have body aches. Patient has a positive exposure to COVID-19. Timing/Duration: yesterday, gradual onset, worse Severity: moderate Modifying Factors: Improves With: nothing Associated Symptoms: nausea, shortness of breath, cough, chills, headaches, weakness, No vomiting, No chest pain, No fever Allergies/Adverse Reactions: meperidine [From Demerol] Allergy (Verified 12/01/20 10:23) morphine Adverse Reaction (Severe, Verified 05/25/19 20:28) burning, no rash Home Medications: Duloxetine HCl [Cymbalta] 60 mg PO DAILY 09/24/15 [History] Metformin HCl 500 mg [Glucophage 500 MG] 1,000 mg PO BID 09/24/15 [History] Lisinopril 10 mg [Zestril 10 MG] 10 mg PO DAILY 05/20/17 [History] Aspirin EC 81 mg [Ecotrin 81 mg] 81 mg PO DAILY 03/09/19 [History] Buspirone HCl 7.5 mg PO BID 03/09/19 [History] Gabapentin 300 mg PO TID 03/09/19 [History] Oxybutynin Chloride [Oxybutynin Chloride ER] 10 mg PO DAILY 03/09/19 [History] Tizanidine HCl 4 mg PO BID 03/09/19 [History] Hx Tetanus, Diphtheria Vaccination/Date Given: Yes Hx Influenza Vaccination/Date Given: No Hx Pneumococcal Vaccination/Date Given: No Immunizations Up to Date: No Travel Risk - International Travel Have you traveled outside of the country in past 3 weeks: No - Coronavirus Screening Are you exhibiting any of the following symptoms?: Yes Symptoms: Shortness of Breath, Headaches/Body Aches/Fatigue Close contact with a COVID-19 positive Pt in past 14-21 Days: Yes - Vaccine Status Have you recieved a Covid-19 vaccination: No - Review of Systems Constitutional: Fever, Chills, Fatigue, Weakness Eyes: No Symptoms Ears, Nose, & Throat: Nose Congestion Respiratory: Cough, Dyspnea, Wheezing Cardiac: No Symptoms Abdominal/Gastrointestinal: Nausea Genitourinary Symptoms: No Symptoms Musculoskeletal: Myalgias Skin: No Symptoms Neurological: Headache Psychological: No Symptoms Endocrine: No Symptoms Hematologic/Lymphatic: No Symptoms Immunological/Allergic: No Symptoms - Past Medical History Pertinent Past Medical History: Yes Neurological History: Peripheral Neuropathy ENT History: No Pertinent History Cardiac History: Hypertension Respiratory History: COPD Endocrine Medical History: Diabetes Type II Musculoskeletal History: Osteoarthritis GI Medical History: No Pertinent History History: No Pertinent History Psycho-Social History: Depression Female Reproductive Disorders: No Pertinent History Other Medical History: SMOKER, STINT IN HER HEAR. - Past Surgical History Past Surgical History: Yes Neuro Surgical History: No Pertinent History Cardiac: No Pertinent History Respiratory: No Pertinent History Gastrointestinal: Cholecystectomy Female Surgical History: Section, Tubal Ligation Other Surgical History: hand surgery removal of for obj - Social History Smoking Status: Current every day smoker How long have you smoked: 27 YRS Exposure to second hand smoke: Yes Drug Use: marijuana Patient Lives Alone: No - Female History Hx Now: No - Nursing Vital Signs Nursing Vital Signs: Initial Vital Signs Temperature 97.0 F 12/01/20 10:02 Pain Scale Pain Intensity 7 - Physical Exam General Appearance: no apparent distress, alert, anxiety Eye Exam: PERRL/EOMI, eyes nml inspection Ears, Nose, Throat Exam: pharyngeal erythema, other (Nasal mucosal injection) Neck Exam: normal inspection, non-tender, supple, full range of motion Respiratory Exam: diminished breath sounds, wheezing Cardiovascular Exam: regular rate/rhythm, normal heart sounds Gastrointestinal/Abdomen Exam: soft, normal bowel sounds, No tenderness Back Exam: normal inspection, normal range of motion Extremity Exam: normal inspection, normal range of motion Neurologic Exam: alert, oriented x 3, cooperative, marketing associate II-XII nml as tested, normal mood/affect, nml cerebellar function, nml station & gait, sensation nml, No motor deficits Skin Exam: normal color SpO2 Interpretation: normal SpO2: 97 O2 Delivery: Nasal Cannula (2L) - Course EKG Interpreted by Me: RATE (71), Sinus Rhythm, NORMAL AXIS, NORMAL INTERVALS, NORMAL QRS Ordered Tests: Medication Summary Discontinued Medications Generic Name Dose Route Start Last Admin Trade Name Freq PRN Reason Stop Dose Admin Acetaminophen 975 mg 12/01/20 10:30 12/01/20 11:22 Tylenol 325 Mg PO 12/01/20 10:31 975 mg STAT ONE Administration Acetaminophen Confirm 12/01/20 11:19 Tylenol 325 Mg Administered 12/01/20 11:20 Dose 975 mg .ROUTE .STK-MED ONE Diphenhydramine HCl 25 mg 12/01/20 10:30 12/01/20 11:21 Benadryl 50 Mg/Ml IV 12/01/20 10:31 25 mg STAT ONE Administration Diphenhydramine HCl Confirm 12/01/20 11:18 Benadryl 50 Mg/Ml Administered 12/01/20 11:19 Dose 50 mg .ROUTE .STK-MED ONE Doxycycline Hyclate 100 mg 12/01/20 15:23 12/01/20 16:38 Vibramycin 100 Mg PO 12/01/20 15:24 100 mg STAT ONE Administration Doxycycline Hyclate Confirm 12/01/20 16:29 Vibramycin 100 Mg Administered 12/01/20 16:30 Dose 100 mg .ROUTE .STK-MED ONE Ketorolac Tromethamine 30 mg 12/01/20 10:30 12/01/20 11:20 Toradol 30 Mg Injection IV 12/01/20 10:31 30 mg STAT ONE Administration Ketorolac Tromethamine Confirm 12/01/20 11:18 Toradol 30 Mg Injection Administered 12/01/20 11:19 Dose 30 mg .ROUTE .[facility] ONE Metoclopramide HCl 10 mg 12/01/20 10:30 12/01/20 11:21 Reglan 10 Mg/2 Ml IV 12/01/20 10:31 10 mg STAT ONE Administration Metoclopramide HCl Confirm 12/01/20 11:19 Reglan 10 Mg/2 Ml Administered 12/01/20 11:20 Dose 10 mg .ROUTE .[facility] Lab/Rad Data: Laboratory Result Diagrams 12/01/20 10:46 12/01/20 10:46 Laboratory Results 12/01/20 12/01/20 12/01/20 Range/Units 16:28 16:00 13:55 WBC (4.0-10.5) K/mm3 RBC (4.1-5.4) M/mm3 Hgb (12.0-16.0) gm/dl Hct (35-47) % MCV (78-100) fl MCH (26-32) pg MCHC (32-36) g/dl RDW (11.5-14.0) % Plt Count (150-450) K/mm3 MPV (7.5-11.0) fl Gran % (36.0-66.0) % Eos # (Auto) (0-0.5) Absolute Lymphs (auto) (1.0-4.6) Absolute Monos (auto) (0.0-1.3) Lymphocytes % (24.0-44.0) % Monocytes % (0.0-12.0) % Eosinophils % (0.00-5.0) % Basophils % (0.0-0.4) % Absolute Granulocytes (1.4-6.9) Basophils # (0-0.4) D-Dimer (215-500) ng/mL Sodium (137-145) mmol/L Potassium (3.5-5.1) mmol/L Chloride (98-107) mmol/L Carbon Dioxide (22-30) mmol/L Anion Gap (5-15) MEQ/L BUN (7-17) mg/dL Creatinine (0.52-1.04) mg/dL Estimated GFR ML/MIN Glucose (74-106) mg/dL Lactic Acid (0.4-2.0) Calcium (8.4-10.2) mg/dL Total Bilirubin (0.2-1.3) mg/dL AST (14-36) U/L ALT (0-35) U/L Alkaline Phosphatase (38-126) U/L Troponin I < 0.012 < 0.012 (0.000-0.034) ng/mL NT-Pro-B Natriuret Pep (0-450) pg/mL Serum Total Protein (6.3-8.2) g/dL Albumin (3.5-5.0) g/dL Urine Color (YELLOW) Urine Appearance (CLEAR) Urine pH (5-6) Ur Specific [place] (1.005-1.025) Urine Protein (Negative) Urine Ketones (NEGATIVE) Urine Blood (0-5) Michelet/ul Urine Nitrite (NEGATIVE) Urine Bilirubin (NEGATIVE) Urine Urobilinogen (0-1) mg/dL Ur Leukocyte Esterase (NEGATIVE) Urine WBC (Auto) (0-5) /HPF Urine RBC (Auto) (0-2) /HPF U Epithel Cells (Auto) (FEW) /HPF Urine Bacteria (Auto) (NEGATIVE) /HPF Urine Mucus (Auto) (NEGATIVE) /HPF Urine Culture Reflexed (NO) Urine Glucose (NEGATIVE) mg/dL SARS-CoV-2 RNA (YESENIA) Not Detected (Not Detected) 12/01/20 12/01/20 12/01/20 Range/Units 13:09 11:19 11:03 WBC (4.0-10.5) K/mm3 RBC (4.1-5.4) M/mm3 Hgb (12.0-16.0) gm/dl Hct (35-47) % MCV (78-100) fl MCH (26-32) pg MCHC (32-36) g/dl RDW (11.5-14.0) % Plt Count (150-450) K/mm3 MPV (7.5-11.0) fl Gran % (36.0-66.0) % Eos # (Auto) (0-0.5) Absolute Lymphs (auto) (1.0-4.6) Absolute Monos (auto) (0.0-1.3) Lymphocytes % (24.0-44.0) % Monocytes % (0.0-12.0) % Eosinophils % (0.00-5.0) % Basophils % (0.0-0.4) % Absolute Granulocytes (1.4-6.9) Basophils # (0-0.4) D-Dimer (215-500) ng/mL Sodium (137-145) mmol/L Potassium (3.5-5.1) mmol/L Chloride (98-107) mmol/L Carbon Dioxide (22-30) mmol/L Anion Gap (5-15) MEQ/L BUN (7-17) mg/dL Creatinine (0.52-1.04) mg/dL Estimated GFR ML/MIN Glucose (74-106) mg/dL Lactic Acid 0.7 2.3 H (0.4-2.0) Calcium (8.4-10.2) mg/dL Total Bilirubin (0.2-1.3) mg/dL AST (14-36) U/L ALT (0-35) U/L Alkaline Phosphatase (38-126) U/L Troponin I (0.000-0.034) ng/mL NT-Pro-B Natriuret Pep (0-450) pg/mL Serum Total Protein (6.3-8.2) g/dL Albumin (3.5-5.0) g/dL Urine Color YELLOW (YELLOW) Urine Appearance CLOUDY (CLEAR) Urine pH 8.0 (5-6) Ur Specific [place] 1.012 (1.005-1.025) Urine Protein NEGATIVE (Negative) Urine Ketones NEGATIVE (NEGATIVE) Urine Blood NEGATIVE (0-5) Michelet/ul Urine Nitrite NEGATIVE (NEGATIVE) Urine Bilirubin NEGATIVE (NEGATIVE) Urine Urobilinogen NEGATIVE (0-1) mg/dL Ur Leukocyte Esterase NEGATIVE (NEGATIVE) Urine WBC (Auto) 3-5 (0-5) /HPF Urine RBC (Auto) NONE (0-2) /HPF U Epithel Cells (Auto) MODERATE (FEW) /HPF Urine Bacteria (Auto) RARE (NEGATIVE) /HPF Urine Mucus (Auto) SLIGHT (NEGATIVE) /HPF Urine Culture Reflexed NO (NO) Urine Glucose NEGATIVE (NEGATIVE) mg/dL SARS-CoV-2 RNA (YESENIA) (Not Detected) 12/01/20 12/01/20 12/01/20 Range/Units 10:46 10:46 10:46 WBC (4.0-10.5) K/mm3 RBC (4.1-5.4) M/mm3 Hgb (12.0-16.0) gm/dl Hct (35-47) % MCV (78-100) fl MCH (26-32) pg MCHC (32-36) g/dl RDW (11.5-14.0) % Plt Count (150-450) K/mm3 MPV (7.5-11.0) fl Gran % (36.0-66.0) % Eos # (Auto) (0-0.5) Absolute Lymphs (auto) (1.0-4.6) Absolute Monos (auto) (0.0-1.3) Lymphocytes % (24.0-44.0) % Monocytes % (0.0-12.0) % Eosinophils % (0.00-5.0) % Basophils % (0.0-0.4) % Absolute Granulocytes (1.4-6.9) Basophils # (0-0.4) D-Dimer 667 H* (215-500) ng/mL Sodium (137-145) mmol/L Potassium (3.5-5.1) mmol/L Chloride (98-107) mmol/L Carbon Dioxide (22-30) mmol/L Anion Gap (5-15) MEQ/L BUN (7-17) mg/dL Creatinine (0.52-1.04) mg/dL Estimated GFR ML/MIN Glucose (74-106) mg/dL Lactic Acid (0.4-2.0) Calcium (8.4-10.2) mg/dL Total Bilirubin (0.2-1.3) mg/dL AST (14-36) U/L ALT (0-35) U/L Alkaline Phosphatase (38-126) U/L Troponin I < 0.012 (0.000-0.034) ng/mL NT-Pro-B Natriuret Pep 148 (0-450) pg/mL Serum Total Protein (6.3-8.2) g/dL Albumin (3.5-5.0) g/dL Urine Color (YELLOW) Urine Appearance (CLEAR) Urine pH (5-6) Ur Specific [place] (1.005-1.025) Urine Protein (Negative) Urine Ketones (NEGATIVE) Urine Blood (0-5) Michelet/ul Urine Nitrite (NEGATIVE) Urine Bilirubin (NEGATIVE) Urine Urobilinogen (0-1) mg/dL Ur Leukocyte Esterase (NEGATIVE) Urine WBC (Auto) (0-5) /HPF Urine RBC (Auto) (0-2) /HPF U Epithel Cells (Auto) (FEW) /HPF Urine Bacteria (Auto) (NEGATIVE) /HPF Urine Mucus (Auto) (NEGATIVE) /HPF Urine Culture Reflexed (NO) Urine Glucose (NEGATIVE) mg/dL SARS-CoV-2 RNA (YESENIA) (Not Detected) 12/01/20 12/01/20 Range/Units 10:46 10:46 WBC 7.9 (4.0-10.5) K/mm3 RBC 5.84 H (4.1-5.4) M/mm3 Hgb 15.1 (12.0-16.0) gm/dl Hct 47.6 H (35-47) % MCV 81.5 (78-100) fl MCH 25.9 L (26-32) pg MCHC 31.7 L (32-36) g/dl RDW 14.5 H (11.5-14.0) % Plt Count 294 (150-450) K/mm3 MPV 10.6 (7.5-11.0) fl Gran % 61.5 (36.0-66.0) % Eos # (Auto) 0.25 (0-0.5) Absolute Lymphs (auto) 2.04 (1.0-4.6) Absolute Monos (auto) 0.68 (0.0-1.3) Lymphocytes % 25.9 (24.0-44.0) % Monocytes % 8.6 (0.0-12.0) % Eosinophils % 3.2 (0.00-5.0) % Basophils % 0.8 (0.0-0.4) % Absolute Granulocytes 4.84 (1.4-6.9) Basophils # 0.06 (0-0.4) D-Dimer (215-500) ng/mL Sodium 138 (137-145) mmol/L Potassium 4.1 (3.5-5.1) mmol/L Chloride 104 (98-107) mmol/L Carbon Dioxide 23 (22-30) mmol/L Anion Gap 15.1 H (5-15) MEQ/L BUN 5 L (7-17) mg/dL Creatinine 0.59 (0.52-1.04) mg/dL Estimated GFR > 60.0 ML/MIN Glucose 136 H (74-106) mg/dL Lactic Acid (0.4-2.0) Calcium 9.7 (8.4-10.2) mg/dL Total Bilirubin 0.40 (0.2-1.3) mg/dL AST 25 (14-36) U/L ALT 19 (0-35) U/L Alkaline Phosphatase 78 (38-126) U/L Troponin I (0.000-0.034) ng/mL NT-Pro-B Natriuret Pep (0-450) pg/mL Serum Total Protein 7.2 (6.3-8.2) g/dL Albumin 4.3 (3.5-5.0) g/dL Urine Color (YELLOW) Urine Appearance (CLEAR) Urine pH (5-6) Ur Specific [place] (1.005-1.025) Urine Protein (Negative) Urine Ketones (NEGATIVE) Urine Blood (0-5) Michelet/ul Urine Nitrite (NEGATIVE) Urine Bilirubin (NEGATIVE) Urine Urobilinogen (0-1) mg/dL Ur Leukocyte Esterase (NEGATIVE) Urine WBC (Auto) (0-5) /HPF Urine RBC (Auto) (0-2) /HPF U Epithel Cells (Auto) (FEW) /HPF Urine Bacteria (Auto) (NEGATIVE) /HPF Urine Mucus (Auto) (NEGATIVE) /HPF Urine Culture Reflexed (NO) Urine Glucose (NEGATIVE) mg/dL SARS-CoV-2 RNA (YESENIA) (Not Detected) - Progress Progress: improved Progress Note: 12/01/20 15:21 50 years old unvaccinated against COVID-19 is evaluated for multiple complaints. She is given symptomatic treatment, on reevaluation feeling better. Without ACS, pulmonary embolism, pneumonia, pneumothorax. Have mildly elevated D-dimers and CT is negative. Does have some element of bronchitis and especially with diabetic and multiple other comorbidities I will give her short course of doxycycline. She is advised to follow-up with her primary care physician for reevaluation. COVID-19 testing is obtained and precautions discussed. Discussed signs symptoms of worsening needing return to ER which he seems understanding. Stable for discharge. Counseled pt/family regarding: lab results, diagnosis, need for follow-up, rad results - Departure Departure Disposition: Home Clinical Impression: Viral syndrome Acute bronchitis Qualifiers: Bronchitis organism: unspecified organism Qualified Code(s): J20.9 - Acute bronchitis, unspecified Condition: Stable Critical Care Time: No Referrals: KRIS CALLAHAN DO [Primary Care Provider] - (1-2 days for reevaluation) Instructions: Headache, Adult (DC), Viral Syndrome (DC) Additional Instructions: Take Tylenol as needed for aches and pains. Do not smoke. Use your inhaler as recommended. Follow-up with primary care for reevaluation. Return to ER for worsening symptoms like intractable headache, persistent fever, difficulty breathing etc. Use contact/droplet precautions until your COVID-19 test is ba ck. Prescriptions: Albuterol 8 gm Mdi Hfa [Ventolin Hfa MDI] 8 gm IH Q4H #1 inh Doxycycline Hyclate 100 mg [Vibramycin 100 MG] 100 mg PO BID #14 tab
[2020-12-01 11:14] LABS: Absolute Neutrophil Ct (ANC) 4.84 (1.4-6.9); BASOPHIL % 0.8 % (0.0-0.4); Basophil (Absolute #) 0.06 (0-0.4); Eosinophil % 3.2 % (0.00-5.0); Eosinophil (Absolute #) 0.25 (0-0.5); Hematocrit 47.6 % (35-47); Hemoglobin 15.1 gm/dl (12.0-16.0); Lymphocyte (Absolute #) 2.04 (1.0-4.6); Lymphocytes % 25.9 % (24.0-44.0); Mean Cell Volume 81.5 fl (78-100); Mean Corpuscular Hemoglobin 25.9 pg (26-32); Mean Corpuscular Hgb Concent. 31.7 g/dl (32-36); Mean Platelet Volume 10.6 fl (7.5-11.0); Monocyte (Absolute #) 0.68 (0.0-1.3); Monocytes % 8.6 % (0.0-12.0); Neutrophil % 61.5 % (36.0-66.0); Platelet Count 294 K/mm3 (150-450); Red Blood Count 5.84 M/mm3 (4.1-5.4); Red Cell Distribution Width 14.5 % (11.5-14.0); White Blood Count 7.9 K/mm3 (4.0-10.5)
[2020-12-01] MEDS ORDERED: BENADRYL 50 MG/ML ONE (11:18)
[2020-12-01] MEDS ORDERED: TORAdol 30 mg Injection ONE (11:18)
[2020-12-01] MEDS ORDERED: Reglan 10 MG/2 ML ONE (11:19)
[2020-12-01] MEDS ORDERED: TYLENOL 325 MG ONE (11:19)
[2020-12-01 11:29] LABS: ALBUMIN 4.3 g/dL (3.5-5.0); ALKALINE PHOSPHATASE 78 U/L (38-126); ANION GAP 15.1 MEQ/L (5-15); BLOOD UREA NITROGEN 5 mg/dL (7-17); CHLORIDE 104 mmol/L (98-107); Calcium 9.7 mg/dL (8.4-10.2); Carbon Dioxide 23 mmol/L (22-30); Creatinine 1 0.59 mg/dL (0.52-1.04); EST GLOMERULAR FILTRATION RATE > 60.0 ML/MIN; Glucose 136 mg/dL (74-106); Potassium 4.1 mmol/L (3.5-5.1); SGOT/AST 25 U/L (14-36); SGPT/ALT 19 U/L (0-35); SODIUM 138 mmol/L (137-145); Total Protein 7.2 g/dL (6.3-8.2)
[2020-12-01 12:15] LABS: Appearance CLOUDY (CLEAR); Bacteria RARE /HPF (NEGATIVE); Bilirubin NEGATIVE (NEGATIVE); Blood NEGATIVE Ery/ul (0-5); Epithelial Cells MODERATE /HPF (FEW); Glucose NEGATIVE (NEGATIVE); Ketones NEGATIVE (NEGATIVE); Leukocyte Esterase NEGATIVE (NEGATIVE); Mucus SLIGHT /HPF (NEGATIVE); Nitrite NEGATIVE (NEGATIVE); Protein,Urine Dip NEGATIVE (Negative); Specific Gravity 1.012 (1.005-1.025); Urobilinogen NEGATIVE mg/dL (0-1)
[2020-12-01] MEDS ORDERED: Vibramycin 100 MG PO ONE (15:23)
[2020-12-01] MEDS ORDERED: Vibramycin 100 MG ONE (16:29)
[2020-12-01 17:00] VITALS: BP 153/99; PULSE 69
--- NOTE | 2020-12-01 18:21 | XRAY ---
Indication: Cough and short of breath. Suspect Covid 19. Comparison: October 08, 2020. Portable chest again demonstrates normal heart and lungs with incidental lingula calcified granuloma. Bony thorax intact again with mild degenerative changes. No new/acute findings.
--- NOTE | 2020-12-01 18:21 | XRAY ---
Indication: Cough and short of breath. Elevated d-dimer. Multiple contiguous axial images obtained through the chest using 92 cc Isovue 370 contrast and PE protocol. Comparison: None There is good opacification of the pulmonary arteries to include the lobar and segmental branches. No pulmonary embolus. Heart not enlarged. Aorta is normal in course and caliber. No pathologic mediastinal/hilar lymphadenopathy. Lungs demonstrate small lingula calcified granuloma and minimal bibasilar dependent atelectasis. No suspicious pulmonary mass, infiltrate, or effusion. Bony thorax intact with mild degenerative changes throughout the spine. Limited upper abdomen demonstrate mild fatty liver and cholecystectomy clips. Impression: 1. Negative pulmonary embolus. 2. Incidental fatty liver and lingula calcified granuloma. 3. Remaining CT chest with contrast exam is negative. Comment: Preliminary interpretation made by [facility]. No critical discrepancy.
[2020-12-05 13:50] VITALS: O2SAT 97
== END 2020-12-01 16:42 | disposition home or self-care (01) ==
LOC: ED 09:53
DX: B34.9 Viral infection, unspecified (principal); J20.9 Acute bronchitis, unspecified; G43.909 Migraine, unspecified, not intractable, without status migrainosus; R43.9 Unspecified disturbances of smell and taste; Z20.822 Contact with and (suspected) exposure to COVID-19; Z86.19 Personal history of other infectious and parasitic diseases; R09.81 Nasal congestion
CPT/HCPCS: 36000; 36415; 71045; 71260; 80053; 81001; 83605; 83880; 84484; 85025; 85379; 87040; 93005; 96374; 96375; 99284; U0003; J1200; J1885; A9270-GY

== ENCOUNTER 2021-01-13 22:54 | Observation (INO) | payer OTHER ==
[2021-01-13] MEDS ORDERED: Zofran 4 MG/2 ML VIAL IV ONE (23:03)
[2021-01-13] MEDS ORDERED: Sodium Chloride 0.9% 1000 ML 1,000 ML IV STA (23:03)
[2021-01-13] MEDS ORDERED: Zofran 4 MG/2 ML VIAL ONE (23:09)
[2021-01-13] MEDS ORDERED: Sodium Chloride 0.9% 1000 ML 1,000 ML ONE (23:09)
[2021-01-13 23:12] LABS: Absolute Neutrophil Ct (ANC) 6.58 (1.4-6.9); BASOPHIL % 0.7 % (0.0-0.4); Basophil (Absolute #) 0.07 (0-0.4); Eosinophil % 1.1 % (0.00-5.0); Eosinophil (Absolute #) 0.11 (0-0.5); Hematocrit 49.6 % (35-47); Hemoglobin 16.1 gm/dl (12.0-16.0); Lymphocyte (Absolute #) 2.13 (1.0-4.6); Mean Corpuscular Hemoglobin 26.3 pg (26-32); Mean Corpuscular Hgb Concent. 32.5 g/dl (32-36); Mean Platelet Volume 10.3 fl (7.5-11.0); Monocyte (Absolute #) 0.78 (0.0-1.3); Monocytes % 8.1 % (0.0-12.0); Neutrophil % 68.1 % (36.0-66.0); Platelet Count 323 K/mm3 (150-450); Red Blood Count 6.12 M/mm3 (4.1-5.4); Red Cell Distribution Width 17.7 % (11.5-14.0); White Blood Count 9.7 K/mm3 (4.0-10.5)
[2021-01-13 23:15] LABS: Appearance CLEAR (CLEAR); Bilirubin NEGATIVE (NEGATIVE); Blood SMALL Ery/ul (0-5); Glucose NEGATIVE (NEGATIVE); Ketones NEGATIVE (NEGATIVE); Leukocyte Esterase NEGATIVE (NEGATIVE); Mucus SLIGHT /HPF (NEGATIVE); Nitrite NEGATIVE (NEGATIVE); Protein,Urine Dip NEGATIVE (Negative); Specific Gravity 1.005 (1.005-1.025); Urobilinogen NEGATIVE mg/dL (0-1)
[2021-01-13 23:18] LABS: ACETAMINOPHEN < 10 ug/ml (10-30); ALBUMIN 4.6 g/dL (3.5-5.0); ALKALINE PHOSPHATASE 76 U/L (38-126); ANION GAP 18.2 MEQ/L (5-15); BLOOD UREA NITROGEN 6 mg/dL (7-17); CHLORIDE 106 mmol/L (98-107); Calcium 9.5 mg/dL (8.4-10.2); Carbon Dioxide 23 mmol/L (22-30); Creatinine 1 0.66 mg/dL (0.52-1.04); EST GLOMERULAR FILTRATION RATE > 60.0 ML/MIN; ETHYL ALCOHOL 121 mg/dL (0-10); Glucose 157 mg/dL (74-106); INR 0.92 (0.8-3.0); PROTIME 10.8 SECONDS (9.4-12.5); Potassium 3.7 mmol/L (3.5-5.1); SALICYLATE < 1.0 mg/dL (2-20); SGOT/AST 24 U/L (14-36); SGPT/ALT 19 U/L (0-35); SODIUM 144 mmol/L (137-145); Total Protein 7.8 g/dL (6.3-8.2)
[2021-01-13 23:21] LABS: PTT 32.8 SECONDS (25.1-36.5)
[2021-01-13 23:23] LABS: Bacteria NONE SEEN /HPF (NEGATIVE)
--- NOTE | 2021-01-13 23:27 | ERPHSYRPT ---
- History of Present Illness Time Seen by Provider: 01/13/21 22:59 Source: patient, family Exam Limitations: clinical condition Physician History: 50 years old female with multiple medical problems including CAD status post stenting, diabetes mellitus, hypertension, tobacco abuse, chronic respiratory failure from COPD on 2 L oxygen, chronic pain, anxiety/depression with previous suicidal attempts presented in the ER with altered mental status. As per report from family patient has been drinking all day long and has been smoking marijuana/K2 and methamphetamine along with taking routine muscle relaxants and Xanax/Neurontin. Per family patient was not responding very well and EMS was called but on EMS arrival patient was awake alert and refused to come. Later on family brought patient in here. Patient is sleepy on arrival but arousable to verbal commands, answering all questions appropriately but falls asleep in between. She is moving all 4 extremities. Did report drinking alcohol smoking marijuana and prescription medication use but not more than 1 each. Does report she is going through a lot of stress because of her recent processing for divorce after 27 years of marriage which is adding a lot of stress and does have history of suicidal ideations needing admission. Timing/Duration: today Severity of Symptoms-Max: moderate Severity of Symptoms-Current: moderate Context related to: spouse Allergies/Adverse Reactions: meperidine [From Demerol] Allergy (Intermediate, Verified 01/13/21 23:26) Hives Penicillins Allergy (Intermediate, Verified 01/13/21 23:26) Swelling of Tongue and Lips morphine Adverse Reaction (Severe, Verified 01/13/21 23:26) Swelling of Tongue and Lips burning, no rash Home Medications: Duloxetine HCl [Cymbalta] 60 mg PO DAILY 09/24/15 [History] Metformin HCl 500 mg [Glucophage 500 MG] 1,000 mg PO BID 09/24/15 [History] Aspirin EC 81 mg [Ecotrin 81 mg] 81 mg PO DAILY 03/09/19 [History] Buspirone HCl 7.5 mg PO BID 03/09/19 [History] Gabapentin 300 mg PO TID 03/09/19 [History] Albuterol 8 gm Mdi Hfa [Ventolin Hfa MDI] 2 puff IH Q4HPRN PRN 01/14/21 [History] Budesonide/Formoterol Fumarate [Budesonide-Formoterol 160-4.5] 2 puff IH DAILY 01/14/21 [History] Cyclobenzaprine HCl 10 mg [Cyclobenzaprine 10 MG] 10 mg PO BID 01/14/21 [H istory] Isosorbide Mononitrate 60 mg [Imdur 60MG] 60 mg PO DAILY 01/14/21 [History] Hx Tetanus, Diphtheria Vaccination/Date Given: Yes Hx Influenza Vaccination/Date Given: No Hx Pneumococcal Vaccination/Date Given: No Travel Risk - Vaccine Status Have you recieved a Covid-19 vaccination: No - Past Medical History Pertinent Past Medical History: Yes Neurological History: Peripheral Neuropathy ENT History: No Pertinent History Cardiac History: Hypertension Respiratory History: COPD Endocrine Medical History: Diabetes Type II Musculoskeletal History: Osteoarthritis GI Medical History: No Pertinent History History: No Pertinent History Psycho-Social History: Depression Female Reproductive Disorders: No Pertinent History Other Medical History: SMOKER, STINT IN HER HEAR. - Past Surgical History Past Surgical History: Yes Neuro Surgical History: No Pertinent History Cardiac: No Pertinent History Respiratory: No Pertinent History Gastrointestinal: Cholecystectomy Female Surgical History: Section, Tubal Ligation Other Surgical History: hand surgery removal of for obj - Social History Smoking Status: Current every day smoker How long have you smoked: 27 YRS Exposure to second hand smoke: Yes Drug Use: marijuana Patient Lives Alone: No - Female History Hx Now: No - Review of Systems All Other Systems: Unable due to condition - Nursing Vital Signs Nursing Vital Signs: Initial Vital Signs Temperature 95.8 F 01/13/21 22:55 Pulse Rate 102 H 01/13/21 22:55 Respiratory Rate 12 01/13/21 22:55 Blood Pressure 152/98 01/13/21 22:55 O2 Sat by Pulse Oximetry 97 01/13/21 22:55 Pain Scale Pain Intensity 0 - Physical Exam General Appearance: no apparent distress, lethargy, other (Sleepy) Eyes, Ears, Nose, Throat Exam: normal ENT inspection, TMs normal, pharynx normal Neck Exam: normal inspection, non-tender, supple, full range of motion Respiratory Exam: normal breath sounds, lungs clear Cardiovascular Exam: regular rate/rhythm, normal heart sounds Gastrointestinal/Abdominal Exam: soft, normal bowel sounds, No tenderness Extremities Exam: normal inspection, normal range of motion, No evidence of injury Neurological Exam: alert, calm, psychiatric attendant II-XII nml as tested, oriented x 3, responds to pain, No normal mood/affect Appearance: appropriate appearance, appropriate insight Behavior/Eye Contact/Speech: cooperative Thoughts/Hallucinations: no apparent hallucination Skin Exam: normal color SpO2 Interpretation: hypoxic, O2 applied SpO2: 97 O2 Delivery: Nasal Cannula (2L) - Course EKG Interpreted by Me: RATE (96), Sinus Rhythm, NORMAL AXIS, NORMAL INTERVALS, Non-specific ST Changes, Other (PVCs) Ordered Tests: Medication Summary Discontinued Medications Generic Name Dose Route Start Last Admin Trade Name Freq PRN Reason Stop Dose Admin Albuterol Sulfate 2 puff 01/14/21 14:37 Albuterol Common Canister Inhaler 02/13/21 14:36 Q4HPRN PRN SHORTNESS OF BREATH/WHEEZING Albuterol/Ipratropium 3 ml 01/14/21 02:07 Ipratropium/Albuterol Sulfate 3 Ml Ampul.Neb 02/13/21 02:06 Q4HPRN PRN SHORTNESS OF BREATH/WHEEZING Aspirin 81 mg 01/14/21 15:00 01/14/21 14:55 Aspirin 81 Mg Tablet.Ec PO 02/13/21 14:59 81 mg DAILY KALIE Administration Buspirone HCl 7.5 mg 01/14/21 22:00 Buspirone Hcl 5 Mg Tablet PO 02/13/21 21:59 BID KALIE Cyclobenzaprine HCl 10 mg 01/14/21 22:00 Cyclobenzaprine Hcl 10 Mg Tablet PO 02/13/21 21:59 BID KALIE Duloxetine HCl 60 mg 01/14/21 15:00 01/14/21 14:56 Duloxetine Hcl 30 Mg Cap PO 02/13/21 14:59 60 mg DAILY KALIE Administration Gabapentin 300 mg 01/14/21 15:00 01/14/21 14:56 Gabapentin 300 Mg Capsule PO 02/13/21 14:59 300 mg TID KALIE Administration Sodium Chloride 1,000 mls @ 999 mls/hr 01/13/21 23:03 01/14/21 01:22 Sodium Chloride 0.9% 1000 Ml IV 01/14/21 00:03 Infused .Q1H1M STA Infusion Sodium Chloride Confirm 01/13/21 23:09 Sodium Chloride 0.9% 1000 Ml Administered 01/13/21 23:10 Dose 1,000 mls @ ud .ROUTE .STK-MED ONE Potassium Chloride/Sodium Chloride 1,000 mls @ 125 mls/hr 01/14/21 02:07 1 16:10 Sodium Chloride 0.9% W/ 20 Meq Kcl/Liter IV 02/13/21 02:06 125 mls/hr .Q8H KALIE Administration Sodium Chloride Confirm 01/14/21 03:00 Sodium Chloride 0.9% 1000 Ml Administered 01/14/21 03:01 Dose 1,000 mls @ ud .ROUTE .STK-MED ONE Potassium Chloride/Sodium Chloride Confirm 01/14/21 03:05 Sodium Chloride 0.45% W/ 20 Meq Kcl Administered 01/14/21 03:06 Dose 1,000 mls @ ud IV .STK-MED ONE Insulin Human Lispro 0 unit 01/14/21 02:07 Insulin Lispro 1 Unit SQ 02/13/21 02:06 UD PRN HYPERGLYCEMIA Isosorbide Mononitrate 60 mg 01/14/21 15:00 01/14/21 14:55 Isosorbide Mononitrate 60 Mg Tab PO 02/13/21 14:59 60 mg DAILY KALIE Administration Metformin HCl 1,000 mg 01/14/21 17:00 01/14/21 17:13 Metformin Hcl 500 Mg Tablet PO 02/13/21 16:59 1,000 mg BIDWM KALIE Administration Miscellaneous Information 1 each 01/14/21 14:45 Medication Intervention 1 Each Each 02/13/21 14:44 .RT TO CHECK ON KALIE Ondansetron HCl 4 mg 01/13/21 23:03 01/13/21 23:11 Ondansetron Hcl 4 Mg/2 Ml Vial IV 01/13/21 23:04 4 mg STAT ONE Administration Ondansetron HCl Confirm 01/13/21 23:09 Ondansetron Hcl 4 Mg/2 Ml Vial Administered 01/13/21 23:10 Dose 4 mg .ROUTE .STK-MED ONE Ondansetron HCl 4 mg 01/14/21 02:07 Ondansetron Hcl 4 Mg/2 Ml Vial IV 02/13/21 02:06 Q6H PRN PRN NAUSEA/VOMITING Pantoprazole Sodium 40 mg 01/14/21 10:00 01/14/21 09:38 Pantoprazole 40 Mg Vial IV 02/13/21 09:59 40 mg Q24H10 KALIE Administration Lab/Rad Data: Laboratory Result Diagrams 01/13/21 23:06 01/13/21 23:06 Laboratory Results 01/13/21 01/13/21 01/13/21 Range/Units 23:53 23:11 23:06 WBC (4.0-10.5) K/mm3 RBC (4.1-5.4) M/mm3 Hgb (12.0-16.0) gm/dl Hct (35-47) % MCV (78-100) fl MCH (26-32) pg MCHC (32-36) g/dl RDW (11.5-14.0) % Plt Count (150-450) K/mm3 MPV (7.5-11.0) fl Gran % (36.0-66.0) % Eos # (Auto) (0-0.5) Absolute Lymphs (auto) (1.0-4.6) Absolute Monos (auto) (0.0-1.3) Lymphocytes % (24.0-44.0) % Monocytes % (0.0-12.0) % Eosinophils % (0.00-5.0) % Basophils % (0.0-0.4) % Absolute Granulocytes (1.4-6.9) Basophils # (0-0.4) PT (9.4-12.5) SECONDS INR (0.8-3.0) APTT (25.1-36.5) SECONDS Sodium (137-145) mmol/L Potassium (3.5-5.1) mmol/L Chloride (98-107) mmol/L Carbon Dioxide (22-30) mmol/L Anion Gap (5-15) MEQ/L BUN (7-17) mg/dL Creatinine (0.52-1.04) mg/dL Estimated GFR ML/MIN Glucose (74-106) mg/dL Calcium (8.4-10.2) mg/dL Magnesium 2.2 (1.6-2.3) mg/dL Total Bilirubin (0.2-1.3) mg/dL AST (14-36) U/L ALT (0-35) U/L Alkaline Phosphatase (38-126) U/L Creatine Kinase 202 H (30-135) U/L Troponin I < 0.012 (0.000-0.034) ng/mL NT-Pro-B Natriuret Pep 50.5 (0-450) pg/mL Serum Total Protein (6.3-8.2) g/dL Albumin (3.5-5.0) g/dL Urine Color (YELLOW) Urine Appearance (CLEAR) Urine pH (5-6) Ur Specific [place] (1.005-1.025) Urine Protein (Negative) Urine Ketones (NEGATIVE) Urine Blood (0-5) Michelet/ul Urine Nitrite (NEGATIVE) Urine Bilirubin (NEGATIVE) Urine Urobilinogen (0-1) mg/dL Ur Leukocyte Esterase (NEGATIVE) Urine WBC (Auto) (0-5) /HPF Urine RBC (Auto) (0-2) /HPF U Epithel Cells (Auto) (FEW) /HPF Urine Bacteria (Auto) (NEGATIVE) /HPF Urine Mucus (Auto) (NEGATIVE) /HPF Urine Culture Reflexed (NO) Urine Glucose (NEGATIVE) mg/dL Salicylates (2-20) mg/dL Urine Opiates Level (NEGATIVE) Ur Methadone (NEGATIVE) Acetaminophen (10-30) ug/ml Urine Barbiturates (NEGATIVE) Ur Phencyclidine (PCP) (NEGATIVE) Urine Amphetamine (NEGATIVE) U Benzodiazepine Level (NEGATIVE) Urine Cocaine (NEGATIVE) Urine Marijuana (THC) (NEGATIVE) Ethyl Alcohol (0-10) mg/dL SARS-CoV-2 (PCR) NEGATIVE (NEGATIVE) 01/13/21 01/13/21 01/13/21 Range/Units 23:06 23:06 23:06 WBC (4.0-10.5) K/mm3 RBC (4.1-5.4) M/mm3 Hgb (12.0-16.0) gm/dl Hct (35-47) % MCV (78-100) fl MCH (26-32) pg MCHC (32-36) g/dl RDW (11.5-14.0) % Plt Count (150-450) K/mm3 MPV (7.5-11.0) fl Gran % (36.0-66.0) % Eos # (Auto) (0-0.5) Absolute Lymphs (auto) (1.0-4.6) Absolute Monos (auto) (0.0-1.3) Lymphocytes % (24.0-44.0) % Monocytes % (0.0-12.0) % Eosinophils % (0.00-5.0) % Basophils % (0.0-0.4) % Absolute Granulocytes (1.4-6.9) Basophils # (0-0.4) PT 10.8 (9.4-12.5) SECONDS INR 0.92 (0.8-3.0) APTT 32.8 (25.1-36.5) SECONDS Sodium (137-145) mmol/L Potassium (3.5-5.1) mmol/L Chloride (98-107) mmol/L Carbon Dioxide (22-30) mmol/L Anion Gap (5-15) MEQ/L BUN (7-17) mg/dL Creatinine (0.52-1.04) mg/dL Estimated GFR ML/MIN Glucose (74-106) mg/dL Calcium (8.4-10.2) mg/dL Magnesium (1.6-2.3) mg/dL Total Bilirubin (0.2-1.3) mg/dL AST (14-36) U/L ALT (0-35) U/L Alkaline Phosphatase (38-126) U/L Creatine Kinase (30-135) U/L Troponin I (0.000-0.034) ng/mL NT-Pro-B Natriuret Pep (0-450) pg/mL Serum Total Protein (6.3-8.2) g/dL Albumin (3.5-5.0) g/dL Urine Color STRAW (YELLOW) Urine Appearance CLEAR (CLEAR) Urine pH 5.0 (5-6) Ur Specific [place] 1.005 (1.005-1.025) Urine Protein NEGATIVE (Negative) Urine Ketones NEGATIVE (NEGATIVE) Urine Blood SMALL (0-5) [place]he[place]/ul Urine Nitrite NEGATIVE (NEGATIVE) Urine Bilirubin NEGATIVE (NEGATIVE) Urine Urobilinogen NEGATIVE (0-1) mg/dL Ur Leukocyte Esterase NEGATIVE (NEGATIVE) Urine WBC (Auto) NONE (0-5) /HPF Urine RBC (Auto) NONE (0-2) /HPF U Epithel Cells (Auto) NONE (FEW) /HPF Urine Bacteria (Auto) NONE SEEN (NEGATIVE) /HPF Urine Mucus (Auto) SLIGHT (NEGATIVE) /HPF Urine Culture Reflexed NO (NO) Urine Glucose NEGATIVE (NEGATIVE) mg/dL Salicylates (2-20) mg/dL Urine Opiates Level NEGATIVE (NEGATIVE) Ur Methadone NEGATIVE (NEGATIVE) Acetaminophen (10-30) ug/ml Urine Barbiturates NEGATIVE (NEGATIVE) Ur Phencyclidine (PCP) NEGATIVE (NEGATIVE) Urine Amphetamine NEGATIVE (NEGATIVE) U Benzodiazepine Level NEGATIVE (NEGATIVE) Urine Cocaine NEGATIVE (NEGATIVE) Urine Marijuana (THC) POSITIVE (NEGATIVE) Ethyl Alcohol (0-10) mg/dL SARS-CoV-2 (PCR) (NEGATIVE) 01/13/21 01/13/21 Range/Units 23:06 23:06 WBC 9.7 (4.0-10.5) K/mm3 RBC 6.12 H* (4.1-5.4) M/mm3 Hgb 16.1 H (12.0-16.0) gm/dl Hct 49.6 H (35-47) % MCV 81.0 (78-100) fl MCH 26.3 (26-32) pg MCHC 32.5 (32-36) g/dl RDW 17.7 H (11.5-14.0) % Plt Count 323 (150-450) K/mm3 MPV 10.3 (7.5-11.0) fl Gran % 68.1 H (36.0-66.0) % Eos # (Auto) 0.11 (0-0.5) Absolute Lymphs (auto) 2.13 (1.0-4.6) Absolute Monos (auto) 0.78 (0.0-1.3) Lymphocytes % 22.0 L (24.0-44.0) % Monocytes % 8.1 (0.0-12.0) % Eosinophils % 1.1 (0.00-5.0) % Basophils % 0.7 (0.0-0.4) % Absolute Granulocytes 6.58 (1.4-6.9) Basophils # 0.07 (0-0.4) PT (9.4-12.5) SECONDS INR (0.8-3.0) APTT (25.1-36.5) SECONDS Sodium 144 (137-145) mmol/L Potassium 3.7 (3.5-5.1) mmol/L Chloride 106 (98-107) mmol/L Carbon Dioxide 23 (22-30) mmol/L Anion Gap 18.2 H (5-15) MEQ/L BUN 6 L (7-17) mg/dL Creatinine 0.66 (0.52-1.04) mg/dL Estimated GFR > 60.0 ML/MIN Glucose 157 H (74-106) mg/dL Calcium 9.5 (8.4-10.2) mg/dL Magnesium (1.6-2.3) mg/dL Total Bilirubin 0.30 (0.2-1.3) mg/dL AST 24 (14-36) U/L ALT 19 (0-35) U/L Alkaline Phosphatase 76 (38-126) U/L Creatine Kinase (30-135) U/L Troponin I (0.000-0.034) ng/mL NT-Pro-B Natriuret Pep (0-450) pg/mL Serum Total Protein 7.8 (6.3-8.2) g/dL Albumin 4.6 (3.5-5.0) g/dL Urine Color (YELLOW) Urine Appearance (CLEAR) Urine pH (5-6) Ur Specific [place] (1.005-1.025) Urine Protein (Negative) Urine Ketones (NEGATIVE) Urine Blood (0-5) [place]/ul Urine Nitrite (NEGATIVE) Urine Bilirubin (NEGATIVE) Urine Urobilinogen (0-1) mg/dL Ur Leukocyte Esterase (NEGATIVE) Urine WBC (Auto) (0-5) /HPF Urine RBC (Auto) (0-2) /HPF U Epithel Cells (Auto) (FEW) /HPF Urine Bacteria (Auto) (NEGATIVE) /HPF Urine Mucus (Auto) (NEGATIVE) /HPF Urine Culture Reflexed (NO) Urine Glucose (NEGATIVE) mg/dL Salicylates < 1.0 L (2-20) mg/dL Urine Opiates Level (NEGATIVE) Ur Methadone (NEGATIVE) Acetaminophen < 10 L (10-30) ug/ml Urine Barbiturates (NEGATIVE) Ur Phencyclidine (PCP) (NEGATIVE) Urine Amphetamine (NEGATIVE) U Benzodiazepine Level (NEGATIVE) Urine Cocaine (NEGATIVE) Urine Marijuana (THC) (NEGATIVE) Ethyl Alcohol 121 H (0-10) mg/dL SARS-CoV-2 (PCR) (NEGATIVE) - Progress Progress: re-examined Progress Note: 01/13/21 23:37 50 years old is evaluated for altered mental status, substance abuse. Patient is arousable to verbal commands and sternal rub. She was mildly hypoxic on presentation but was on room air and she is on 2 L normally which she is placed on and is 97%. EKG showed sinus rhythm with some PVCs but no acute ST elevation and negative chest x-ray for any acute cardiopulmonary findings. She has normal white count, chemistry profile showed mild elevated gap with possible dehydration and is given a fluid bolus. Blood alcohol of 121 and urine drug screen positive for THC but nothing else. Patient did admit smoking synthetic. Poison control was called who recommended supportive care. Patient cannot be medically cleared. Discussed with Dr. Anderson and patient is being admitted for observation until she gets sober and that [facility] consultation will be obtained. On reevaluation patient is more arousable to just verbal commands. I do not think patient needs to be intubated and is well protecting her airway. Discussed with DrKalen: Reynaldo Will see patient in: hospital (observation) Counseled pt/family regarding: lab results, diagnosis, rad results - Departure Departure Disposition: Observation Clinical Impression: Polysubstance abuse, Alcohol intoxication Altered mental status Qualifiers: Altered mental status type: unspecified Qualified Code(s): R41.82 - Altered mental status, unspecified Condition: Stable Critical Care Time: No
[2021-01-13 23:29] LABS: CK-Creatinine Phosphokinase 202 U/L (30-135); NT PRO BNP 50.5 pg/mL (0-450); TROPONIN < 0.012 ng/mL (0.000-0.034)
[2021-01-13 23:30] LABS: Amphetamine,Urine NEGATIVE (NEGATIVE); Barbiturate,Urine NEGATIVE (NEGATIVE); Benzodiazepine,Urine NEGATIVE (NEGATIVE); Cocaine,Urine NEGATIVE (NEGATIVE); Methadone,Urine NEGATIVE (NEGATIVE); Opiate,Urine NEGATIVE (NEGATIVE); PCP,Urine NEGATIVE (NEGATIVE); THC,Urine POSITIVE (NEGATIVE)
[2021-01-14] MEDS ORDERED: Zofran 4 MG/2 ML VIAL IV PRN (02:07)
[2021-01-14] MEDS ORDERED: DUONEB 0.5-3 MG/3 ml Neb IH PRN (02:07)
[2021-01-14] MEDS ORDERED: HUMALOG SQ PRN (02:07)
[2021-01-14] MEDS ORDERED: Sodium Chloride 0.9% 1000 ML 0 ML ONE (03:00)
[2021-01-14] MEDS ORDERED: SODIUM CHLORIDE 0.45% W/ 20 mEq KCL 0 ML IV ONE (03:05)
[2021-01-14] MEDS: Sodium Chloride 0.9% W/ 20 mEq KCl/LITER 1,000 ML IV SCH ×3 (03:08→16:10)
[2021-01-14 05:32] LABS: ALBUMIN 3.6 g/dL (3.5-5.0); ALKALINE PHOSPHATASE 59 U/L (38-126); ANION GAP 12.3 MEQ/L (5-15); BLOOD UREA NITROGEN 5 mg/dL (7-17); CHLORIDE 111 mmol/L (98-107); Calcium 8.5 mg/dL (8.4-10.2); Carbon Dioxide 23 mmol/L (22-30); Creatinine 1 0.49 mg/dL (0.52-1.04); EST GLOMERULAR FILTRATION RATE > 60.0 ML/MIN; Glucose 107 mg/dL (74-106); Potassium 4.2 mmol/L (3.5-5.1); SGOT/AST 23 U/L (14-36); SGPT/ALT 16 U/L (0-35); SODIUM 142 mmol/L (137-145); Total Protein 6.2 g/dL (6.3-8.2)
[2021-01-14 06:02] LABS: Absolute Neutrophil Ct (ANC) 6.07 (1.4-6.9); BASOPHIL % 0.5 % (0.0-0.4); Basophil (Absolute #) 0.05 (0-0.4); Eosinophil % 1.4 % (0.00-5.0); Eosinophil (Absolute #) 0.13 (0-0.5); Hematocrit 44.1 % (35-47); Hemoglobin 13.9 gm/dl (12.0-16.0); Lymphocyte (Absolute #) 2.19 (1.0-4.6); Lymphocytes % 23.9 % (24.0-44.0); Mean Cell Volume 82.9 fl (78-100); Mean Corpuscular Hemoglobin 26.1 pg (26-32); Mean Corpuscular Hgb Concent. 31.5 g/dl (32-36); Mean Platelet Volume 10.5 fl (7.5-11.0); Monocyte (Absolute #) 0.74 (0.0-1.3); Monocytes % 8.1 % (0.0-12.0); Neutrophil % 66.1 % (36.0-66.0); Platelet Count 298 K/mm3 (150-450); Red Blood Count 5.32 M/mm3 (4.1-5.4); Red Cell Distribution Width 17.2 % (11.5-14.0); White Blood Count 9.2 K/mm3 (4.0-10.5)
--- NOTE | 2021-01-14 08:50 | XRAY ---
Indication: Overdose. Comparison: December 01, 2020. Portable chest less inflated and remains clear. Heart not enlarged. Bony thorax intact again with mild degenerative changes. No new/acute abnormalities.
[2021-01-14] MEDS ORDERED: PROTONIX 40 MG IV IV SCH (10:00)
[2021-01-14] MEDS ORDERED: Ventolin Hfa MDI IH PRN (14:29)
[2021-01-14] MEDS ORDERED: VENTOLIN COMMON CANISTER IH PRN (14:37)
[2021-01-14] MEDS ORDERED: MEDICATION INTERVENTION MC SCH (14:45)
[2021-01-14] MEDS ORDERED: Cymbalta 30 MG Capsule PO SCH (15:00)
[2021-01-14] MEDS ORDERED: Imdur 60MG PO SCH (15:00)
[2021-01-14] MEDS ORDERED: ECOTRIN 81 MG PO SCH (15:00)
[2021-01-14] MEDS ORDERED: NEURONTIN 300 MG PO SCH (15:00)
[2021-01-14] MEDS ORDERED: Glucophage 500 MG PO SCH (17:00)
[2021-01-14 19:40] VITALS: BP 122/67; PULSE 87
[2021-01-14] MEDS ORDERED: BUSPAR 5 MG PO SCH (22:00)
[2021-01-14] MEDS ORDERED: Cyclobenzaprine 10 MG PO SCH (22:00)
[2021-01-14] MEDS ORDERED: NON-FORMULARY ITEM (Buspirone Hcl [Buspirone Hcl] 7.5 MG Tablet) PO SCH (22:00)
[2021-01-15] MEDS ORDERED: NON-FORMULARY ITEM (Duloxetine Hcl [Cymbalta] 60 MG Capsule.Dr) PO SCH (10:00)
[2021-01-15] MEDS ORDERED: NON-FORMULARY ITEM (Budesonide/Formoterol Fumarate [Budesonide-Formoterol 160-4.5] 10.2 GM IH SCH (10:00)
[2021-01-17 10:03] VITALS: O2SAT 97
== END 2021-01-14 20:30 | disposition home or self-care (01) ==
LOC: ED 22:54 → MED SURG 01-14 01:58
PROVIDERS: ADMIT Family Medicine; ATTEND Family Medicine
DX: R41.82 Altered mental status, unspecified (principal); R45.851 Suicidal ideations; F19.10 Other psychoactive substance abuse, uncomplicated; Z72.89 Other problems related to lifestyle; Z79.899 Other long term (current) drug therapy; Z20.822 Contact with and (suspected) exposure to COVID-19; E11.9 Type 2 diabetes mellitus without complications; I10 Essential (primary) hypertension; J96.10 Chronic respiratory failure, unspecified whether with hypoxia or hypercapnia; Z99.81 Dependence on supplemental oxygen; J44.9 Chronic obstructive pulmonary disease, unspecified
CPT/HCPCS: 36000; 36415; 51702; 71045; 80053; 80307; 81001; 82550; 82947; 83735; 83880; 84484; 85025; 85610; 85730; 93005; 93041; 93268; 94762; 96360; 96374; 99285; 99291; G0378; G0480; U0003; J2405; A9270-GY

== ENCOUNTER 2021-04-01 15:43 | Emergency (ER) | payer OTHER ==
--- NOTE | 2021-04-01 16:23 | ERPHSYRPT ---
- History of Present Illness Time Seen by Provider: 04/01/21 16:10 Historian: patient Exam Limitations: no limitations Patient Subjective Stated Complaint: Pt states that she began hurting in her left flank today and it radiates around to her left lower abdomen Triage Nursing Assessment: Pt was brought to the ER by her uncle, hypertensive, rates pain as 8/10, denies pain with urination, pulses normal, denies N&V Physician History: This is a 50-year-old overweight white female patient of Dr. Lamb who presents with left flank pain that wraps around anteriorly to the left side of her abdomen. Patient has muscle relaxer agents and nonsteroidal anti- inflammatory medication to help her chronic back pain. This pain is different. Patient has a history of coronary disease and has coronary stents in place, she has a history of diabetes, hypertension, 2 L nasal cannula oxygen therapy, CHF, peripheral neuropathy and type 2 diabetes. Patient has oxygen dependent COPD. She denies chest pain. She denies nausea vomiting and diarrhea. Timing/Duration: today Activities at Onset: none Quality: aching Abdominal Pain Onset Location: flank (Left flank) Pain Radiation: LUQ, LLQ Severity of Pain-Max: moderate Severity of Pain-Current: moderate Modifying Factors: Improves With: movement Associated Symptoms: denies symptoms Previous symptoms: no prior history Allergies/Adverse Reactions: meperidine [From Demerol] Allergy (Intermediate, Verified 04/01/21 16:01) Hives Penicillins Allergy (Intermediate, Verified 04/01/21 16:01) Swelling of Tongue and Lips morphine Adverse Reaction (Severe, Verified 04/01/21 16:01) Swelling of Tongue and Lips burning, no rash Home Medications: Duloxetine HCl [Cymbalta] 60 mg PO DAILY 09/24/15 [History] Metformin HCl 500 mg [Glucophage 500 MG] 1,000 mg PO BID 09/24/15 [History] Buspirone HCl 7.5 mg PO BID 03/09/19 [History] Gabapentin 300 mg PO TID 03/09/19 [History] Cyclobenzaprine HCl 10 mg [Cyclobenzaprine 10 MG] 10 mg PO BID 01/14/21 [History] Isosorbide Mononitrate 60 mg [Imdur 60MG] 60 mg PO DAILY 01/14/21 [History] Hx Tetanus, Diphtheria Vaccination/Date Given: Yes Hx Influenza Vaccination/Date Given: No Hx Pneumococcal Vaccination/Date Given: No Travel Risk - International Travel Have you traveled outside of the country in past 3 weeks: No - Coronavirus Screening Are you exhibiting any of the following symptoms?: No Close contact with a COVID-19 positive Pt in past 14-21 Days: No - Vaccine Status Have you recieved a Covid-19 vaccination: Yes Party Demonstrator: Rhomania - Vaccination Dates Date of 2cond Vaccination (if applicable): 01/20/2021 - Review of Systems Constitutional: No Symptoms Eyes: No Symptoms Ears, Nose, & Throat: No Symptoms Respiratory: No Symptoms Cardiac: No Symptoms Abdominal/Gastrointestinal: Abdominal Pain (Left upper quadrant, left lower quadrant) Genitourinary Symptoms: Flank Pain (Left flank pain), No Dysuria, No Frequency, No Hematuria Musculoskeletal: Back Pain Skin: No Symptoms Neurological: No Symptoms Psychological: No Symptoms Endocrine: No Symptoms Hematologic/Lymphatic: No Symptoms Immunological/Allergic: No Symptoms All Other Systems: Reviewed and Negative - Past Medical History Pertinent Past Medical History: Yes Neurological History: Peripheral Neuropathy ENT History: No Pertinent History Cardiac History: Hypertension Respiratory History: COPD Endocrine Medical History: Diabetes Type II Musculoskeletal History: Osteoarthritis GI Medical History: No Pertinent History History: No Pertinent History Psycho-Social History: Depression Female Reproductive Disorders: No Pertinent History Other Medical History: SMOKER, STINT IN HER HEART. - Past Surgical History Past Surgical History: Yes Neuro Surgical History: No Pertinent History Cardiac: No Pertinent History Respiratory: No Pertinent History Gastrointestinal: Cholecystectomy Genitourinary: No Pertinent History Musculoskeletal: Orthopedic Surgery Female Surgical History: Section, Tubal Ligation Other Surgical History: hand surgery removal of for obj - Social History Smoking Status: Current every day smoker How long have you smoked: 27 YRS Exposure to second hand smoke: Yes Drug Use: marijuana Patient Lives Alone: Yes - Female History Hx Now: No - Nursing Vital Signs Nursing Vital Signs: Initial Vital Signs Temperature 96.6 F 04/01/21 15:51 Pulse Rate 93 H 04/01/21 15:51 Blood Pressure 176/99 04/01/21 15:51 O2 Sat by Pulse Oximetry 100 04/01/21 15:51 Pain Scale Pain Intensity 8 - Physical Exam General Appearance: no apparent distress, alert, anxiety Eye Exam: PERRL/EOMI, eyes nml inspection Ears, Nose, Throat Exam: normal ENT inspection, moist mucous membranes Neck Exam: normal inspection, non-tender, supple, full range of motion Respiratory Exam: normal breath sounds, lungs clear, airway intact, No chest tenderness, No respiratory distress Cardiovascular Exam: regular rate/rhythm, normal heart sounds, normal peripheral pulses Gastrointestinal/Abdomen Exam: soft, normal bowel sounds, tenderness (Left upper quadrant/left lower quadrant), No guarding Pelvic Exam: not done Back Exam: normal inspection, normal range of motion, CVA tenderness (Left side), No vertebral tenderness Extremity Exam: normal inspection, normal range of motion, pelvis stable Neurologic Exam: alert, oriented x 3, cooperative, mechanical 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 II-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 nml as tested, normal mood/affect, nml cerebellar function, nml station & gait, sensation nml Skin Exam: normal color, warm, dry Lymphatic Exam: No adenopathy SpO2 Interpretation: normal SpO2: 100 O2 Delivery: Room Air - Course Nursing assessment & vital signs reviewed: Yes Ordered Tests: Active Orders 24 hr Category Date Time Status IV Insertion STAT Care 04/01/21 16:27 Active ABDOMEN AND PELVIS W/0 CONTRAS [CT] Stat Exams 04/01/21 16:27 Completed AMYLASE Stat Lab 04/01/21 15:58 Completed CBC W DIFF Stat Lab 04/01/21 15:58 Completed CMP Stat Lab 04/01/21 15:58 Completed LIPASE Stat Lab 04/01/21 15:58 Completed Lactic Acid Stat Lab 04/01/21 16:27 Completed UA W/RFX UR CULTURE Stat Lab 04/01/21 15:58 Completed Lab/Rad Data: Laboratory Result Diagrams 04/01/21 15:58 04/01/21 15:58 Laboratory Results 04/01/21 04/01/21 04/01/21 Range/Units 16:27 15:58 15:58 WBC 9.7 (4.0-10.5) K/mm3 RBC 5.74 H (4.1-5.4) M/mm3 Hgb 15.9 (12.0-16.0) gm/dl Hct 49.5 H (35-47) % MCV 86.2 (78-100) fl MCH 27.7 (26-32) pg MCHC 32.1 (32-36) g/dl RDW 14.2 H (11.5-14.0) % Plt Count 316 (150-450) K/mm3 MPV 10.5 (7.5-11.0) fl Gran % 54.7 (36.0-66.0) % Eos # (Auto) 0.27 (0-0.5) Absolute Lymphs (auto) 3.34 (1.0-4.6) Absolute Monos (auto) 0.73 (0.0-1.3) Lymphocytes % 34.4 (24.0-44.0) % Monocytes % 7.5 (0.0-12.0) % Eosinophils % 2.8 (0.00-5.0) % Basophils % 0.6 (0.0-0.4) % Absolute Granulocytes 5.30 (1.4-6.9) Basophils # 0.06 (0-0.4) Sodium 138 (137-145) mmol/L Potassium 3.9 (3.5-5.1) mmol/L Chloride 100 (98-107) mmol/L Carbon Dioxide 29 (22-30) mmol/L Anion Gap 11.9 (5-15) MEQ/L BUN 11 (7-17) mg/dL Creatinine 0.72 (0.52-1.04) mg/dL Estimated GFR > 60.0 ML/MIN Glucose 129 H (74-106) mg/dL Lactic Acid 1.5 (0.4-2.0) Calcium 9.5 (8.4-10.2) mg/dL Total Bilirubin 0.40 (0.2-1.3) mg/dL AST 21 (14-36) U/L ALT 18 (0-35) U/L Alkaline Phosphatase 82 (38-126) U/L Serum Total Protein 7.1 (6.3-8.2) g/dL Albumin 4.3 (3.5-5.0) g/dL Amylase 44 (30-110) U/L Lipase 85 (23-300) U/L Urine Color (YELLOW) Urine Appearance (CLEAR) Urine pH (5-6) Ur Specific [place] (1.005-1.025) Urine Protein (Negative) Urine Ketones (NEGATIVE) Urine Blood (0-5) Michelet/ul Urine Nitrite (NEGATIVE) Urine Bilirubin (NEGATIVE) Urine Urobilinogen (0-1) mg/dL Ur Leukocyte Esterase (NEGATIVE) Urine WBC (Auto) (0-5) /HPF Urine RBC (Auto) (0-2) /HPF U Epithel Cells (Auto) (FEW) /HPF Urine Bacteria (Auto) (NEGATIVE) /HPF Urine Mucus (Auto) (NEGATIVE) /HPF Urine Culture Reflexed (NO) Urine Glucose (NEGATIVE) mg/dL 04/01/21 Range/Units 15:58 WBC (4.0-10.5) K/mm3 RBC (4.1-5.4) M/mm3 Hgb (12.0-16.0) gm/dl Hct (35-47) % MCV (78-100) fl MCH (26-32) pg MCHC (32-36) g/dl RDW (11.5-14.0) % Plt Count (150-450) K/mm3 MPV (7.5-11.0) fl Gran % (36.0-66.0) % Eos # (Auto) (0-0.5) Absolute Lymphs (auto) (1.0-4.6) Absolute Monos (auto) (0.0-1.3) Lymphocytes % (24.0-44.0) % Monocytes % (0.0-12.0) % Eosinophils % (0.00-5.0) % Basophils % (0.0-0.4) % Absolute Granulocytes (1.4-6.9) Basophils # (0-0.4) Sodium (137-145) mmol/L Potassium (3.5-5.1) mmol/L Chloride (98-107) mmol/L Carbon Dioxide (22-30) mmol/L Anion Gap (5-15) MEQ/L BUN (7-17) mg/dL Creatinine (0.52-1.04) mg/dL Estimated GFR ML/MIN Glucose (74-106) mg/dL Lactic Acid (0.4-2.0) Calcium (8.4-10.2) mg/dL Total Bilirubin (0.2-1.3) mg/dL AST (14-36) U/L ALT (0-35) U/L Alkaline Phosphatase (38-126) U/L Serum Total Protein (6.3-8.2) g/dL Albumin (3.5-5.0) g/dL Amylase (30-110) U/L Lipase (23-300) U/L Urine Color YELLOW (YELLOW) Urine Appearance SLIGHTLY CLOUDY (CLEAR) Urine pH 5.0 (5-6) Ur Specific [place] 1.014 (1.005-1.025) Urine Protein NEGATIVE (Negative) Urine Ketones NEGATIVE (NEGATIVE) Urine Blood SMALL (0-5) Michelet/ul Urine Nitrite NEGATIVE (NEGATIVE) Urine Bilirubin NEGATIVE (NEGATIVE) Urine Urobilinogen NEGATIVE (0-1) mg/dL Ur Leukocyte Esterase NEGATIVE (NEGATIVE) Urine WBC (Auto) NONE (0-5) /HPF Urine RBC (Auto) 0-2 (0-2) /HPF U Epithel Cells (Auto) RARE (FEW) /HPF Urine Bacteria (Auto) NONE (NEGATIVE) /HPF Urine Mucus (Auto) SLIGHT (NEGATIVE) /HPF Urine Culture Reflexed NO (NO) Urine Glucose NEGATIVE (NEGATIVE) mg/dL - Progress Progress: improved, pain not gone completely Progress Note: 04/01/21 17:06 CAT scan of the abdomen pelvis without contrast shows no acute intra-abdominal o r intrapelvic processes. There are bilateral alveolar interstitial opacities at the bases of the lung. 04/01/21 17:25 Medical decision making: This patient does not have any acute intra-abdominal or pelvic abnormalities. However she does have evidence of bibasilar lung findings consistent with COVID-19 infection. In talking with the patient prior to discharge, she does state that she has been coughing more and there is pain when she coughs in her back which was part of the issue. We will provide her with hydrocodone elixir and steroids to help with her pulmonary findings as well as with control of her cough and back pain. Patient states that she has had hydrocodone in the past without any adverse reactions. 04/01/21 17:27 Counseled pt/family regarding: lab results, diagnosis, need for follow-up, rad results - Departure Departure Disposition: Home Clinical Impression: Back pain, Opacities of both lungs present on chest x-ray Condition: Stable Critical Care Time: No Referrals: KRIS LAMB DO [Primary Care Provider] - Follow up/PCP as directed Additional Instructions: Quarantine yourself until the results of your COVID-19 test returned. Take your new medication as prescribed. Follow-up with your primary care physician for further management. Prescriptions: Hydrocodone/Acetaminophen [Hydrocodone-Acetamn 7.5-325/15] 10 ml PO Q8H PRN PRN #60 ml MDD 30 ml PRN Reason: Cough Prednisone 10 mg [Deltasone 10 mg] 10 mg PO TID #12 tablet
[2021-04-01 16:38] LABS: Basophil (Absolute #) 0.06 (0-0.4); Eosinophil % 2.8 % (0.00-5.0); Eosinophil (Absolute #) 0.27 (0-0.5); Hematocrit 49.5 % (35-47); Hemoglobin 15.9 gm/dl (12.0-16.0); Lymphocyte (Absolute #) 3.34 (1.0-4.6); Lymphocytes % 34.4 % (24.0-44.0); Mean Cell Volume 86.2 fl (78-100); Mean Corpuscular Hemoglobin 27.7 pg (26-32); Mean Corpuscular Hgb Concent. 32.1 g/dl (32-36); Mean Platelet Volume 10.5 fl (7.5-11.0); Monocyte (Absolute #) 0.73 (0.0-1.3); Monocytes % 7.5 % (0.0-12.0); Neutrophil % 54.7 % (36.0-66.0); Platelet Count 316 K/mm3 (150-450); Red Blood Count 5.74 M/mm3 (4.1-5.4); Red Cell Distribution Width 14.2 % (11.5-14.0); White Blood Count 9.7 K/mm3 (4.0-10.5)
[2021-04-01 16:50] LABS: Appearance SLIGHTLY CLOUDY (CLEAR); Bilirubin NEGATIVE (NEGATIVE); Blood SMALL Ery/ul (0-5); Epithelial Cells RARE /HPF (FEW); Glucose NEGATIVE (NEGATIVE); Ketones NEGATIVE (NEGATIVE); Leukocyte Esterase NEGATIVE (NEGATIVE); Mucus SLIGHT /HPF (NEGATIVE); Nitrite NEGATIVE (NEGATIVE); Protein,Urine Dip NEGATIVE (Negative); RBC 0-2 /HPF (0-2); Specific Gravity 1.014 (1.005-1.025); Urobilinogen NEGATIVE mg/dL (0-1)
[2021-04-01 17:01] LABS: ALBUMIN 4.3 g/dL (3.5-5.0); ALKALINE PHOSPHATASE 82 U/L (38-126); AMYLASE 44 U/L (30-110); ANION GAP 11.9 MEQ/L (5-15); BLOOD UREA NITROGEN 11 mg/dL (7-17); CHLORIDE 100 mmol/L (98-107); Calcium 9.5 mg/dL (8.4-10.2); Carbon Dioxide 29 mmol/L (22-30); Creatinine 1 0.72 mg/dL (0.52-1.04); EST GLOMERULAR FILTRATION RATE > 60.0 ML/MIN; Glucose 129 mg/dL (74-106); LIPASE 85 U/L (23-300); Potassium 3.9 mmol/L (3.5-5.1); SGOT/AST 21 U/L (14-36); SGPT/ALT 18 U/L (0-35); SODIUM 138 mmol/L (137-145); Total Protein 7.1 g/dL (6.3-8.2)
--- NOTE | 2021-04-01 17:02 | XRAY ---
Indication: Left flank pain. Multiple contiguous axial images obtained through the abdomen and pelvis without contrast using renal stone protocol. Comparison: February 16, 2021. Lung bases demonstrates new bibasilar patchy groundglass airspace disease without consolidation/effusion. Stable lingula calcified granuloma. Heart not enlarged. No renal calculus or evidence for obstructive uropathy in either system. Stomach is now markedly distended with food/fluid. Noncontrasted stomach and bowel loops appear nonobstructed again with normal appendix. There remains mild diffuse fecal debris throughout. Again 1 cm right upper pole exophytic renal cyst, 20 cm hepatomegaly, 1.8 cm left adrenal adenoma, and cholecystectomy clips. No free fluid/air. Remaining liver, pancreas, spleen, adrenal glands, kidneys, ureters, bladder, and uterus are unremarkable for noncontrast exam. There remains mild scattered aortoiliac calcifications without AAA. Osseous structures intact again with mild ectatic changes throughout the thoracolumbar spine. Impression: 1. Continued negative renal calculus or evidence for obstructive uropathy. 2. New patchy groundglass airspace disease in both lung bases. Rule out Covid 19 pneumonia. 3. Again diffuse fecal stasis. 4. Again incidental hepatomegaly, small right renal cyst, small left adrenal adenoma, chronic bony findings, and old granulomatous disease.
[2021-04-01] MEDS ORDERED: HYDROCODONE-ACETAMIN 2.5-108/5 ML SOLUTION PO STA (17:24)
[2021-04-01] MEDS ORDERED: HYDROCODONE-ACETAMIN 2.5-108/5 ML SOLUTION ONE (17:26)
[2021-04-01 17:34] VITALS: BP 143/81; PULSE 84; O2SAT 99
== END 2021-04-01 17:35 | disposition home or self-care (01) ==
LOC: ED 15:43
DX: R91.8 Other nonspecific abnormal finding of lung field (principal); M54.9 Dorsalgia, unspecified; I10 Essential (primary) hypertension; E11.42 Type 2 diabetes mellitus with diabetic polyneuropathy; Z79.84 Long term (current) use of oral hypoglycemic drugs; J44.9 Chronic obstructive pulmonary disease, unspecified; Z99.81 Dependence on supplemental oxygen; Z72.0 Tobacco use; I25.10 Atherosclerotic heart disease of native coronary artery without angina pectoris; Z79.899 Other long term (current) drug therapy; R05.9 Cough, unspecified; Z79.891 Long term (current) use of opiate analgesic; Z79.52 Long term (current) use of systemic steroids
CPT/HCPCS: 36000; 36415; 74176; 80053; 81001; 82150; 83605; 83690; 85025; 99284; U0003; A9270-GY

== ENCOUNTER 2021-07-23 20:08 | Emergency (ER) | payer OTHER ==
--- NOTE | 2021-07-23 20:11 | ERPHSYRPT ---
- History of Present Illness Time Seen by Provider: 07/23/21 20:11 Source: patient Exam Limitations: no limitations Physician History: This is a 51-year-old patient of Dr. Lamb is significant depression and anxiety issues as well as diabetes and presents with 3-day history of "feeling funny". She feels that in her abdomen. She denies it being pain. She has had fevers chills headache and her lung "hurts". She has had no nausea vomiting or diarrhea. She does complain of some muscle aches and pains. There are no new medications that she is taking. She denies chest pain. She denies shortness of breath. She has no known exposures to anyone with viral illnesses. Timing/Duration: day(s) (3) Fever Severity: gone Fever Therapy FIRST BREAKER FEEDER: none Associated Symptoms: headache, muscle aches Allergies/Adverse Reactions: meperidine [From Demerol] Allergy (Intermediate, Verified 07/23/21 20:40) Hives Penicillins Allergy (Intermediate, Verified 07/23/21 20:40) Swelling of Tongue and Lips morphine Adverse Reaction (Severe, Verified 07/23/21 20:40) Swelling of Tongue and Lips burning, no rash Home Medications: Duloxetine HCl [Cymbalta] 60 mg PO DAILY 09/24/15 [History] Metformin HCl 500 mg [Glucophage 500 MG] 1,000 mg PO BID 09/24/15 [History] Buspirone HCl 7.5 mg PO BID 03/09/19 [History] Gabapentin 300 mg PO BID 03/09/19 [History] Cyclobenzaprine HCl 10 mg [Cyclobenzaprine 10 MG] 10 mg PO BID 01/14/21 [History] Isosorbide Mononitrate 60 mg [Imdur 60MG] 60 mg PO DAILY 01/14/21 [History] Ziprasidone 20 mg [Geodon 20 MG Capsule] 20 mg PO BID 07/23/21 [History] Hx Tetanus, Diphtheria Vaccination/Date Given: Yes Hx Influenza Vaccination/Date Given: No Hx Pneumococcal Vaccination/Date Given: No Travel Risk - International Travel Have you traveled outside of the country in past 3 weeks: No - Coronavirus Screening Are you exhibiting any of the following symptoms?: No Close contact with a COVID-19 positive Pt in past 14-21 Days: No - Vaccine Status Have you recieved a Covid-19 vaccination: Yes Oncology Rn: Pf[employer] - Vaccination Dates Date of 2cond Vaccination (if applicable): 01/20/2021 - Review of Systems Constitutional: Fever, Chills Eyes: No Symptoms Ears, Nose, & Throat: No Symptoms Respiratory: No Symptoms Cardiac: No Symptoms Abdominal/Gastrointestinal: No Symptoms Genitourinary Symptoms: No Symptoms Musculoskeletal: Arthralgias, Myalgias Skin: No Symptoms Neurological: No Symptoms Psychological: No Symptoms Endocrine: No Symptoms Hematologic/Lymphatic: No Symptoms Immunological/Allergic: No Symptoms All Other Systems: Reviewed and Negative - Past Medical History Pertinent Past Medical History: Yes Neurological History: Peripheral Neuropathy ENT History: No Pertinent History Cardiac History: Hypertension Respiratory History: COPD Endocrine Medical History: Diabetes Type II Musculoskeletal History: Osteoarthritis GI Medical History: No Pertinent History History: No Pertinent History Psycho-Social History: Depression Female Reproductive Disorders: No Pertinent History Other Medical History: SMOKER, STINT IN HER HEART. - Past Surgical History Past Surgical History: Yes Neuro Surgical History: No Pertinent History Cardiac: No Pertinent History Respiratory: No Pertinent History Gastrointestinal: Cholecystectomy Genitourinary: No Pertinent History Musculoskeletal: Orthopedic Surgery Female Surgical History: Section, Tubal Ligation Other Surgical History: hand surgery removal of for obj - Social History Smoking Status: Current every day smoker How long have you smoked: 27 YRS Exposure to second hand smoke: Yes Drug Use: marijuana Patient Lives Alone: Yes - Nursing Vital Signs Nursing Vital Signs: Initial Vital Signs Temperature 97.4 F 07/23/21 20:08 Pulse Rate 87 07/23/21 20:08 Respiratory Rate 20 07/23/21 20:08 Blood Pressure 132/81 07/23/21 20:08 O2 Sat by Pulse Oximetry 96 07/23/21 20:08 Pain Scale Pain Intensity 0 - Physical Exam General Appearance: no apparent distress, alert, anxiety, obese Eye Exam: PERRL/EOMI, eyes nml inspection ENT Exam: normal ENT inspection, TMs normal, pharynx normal Neck Exam: normal inspection, non-tender, supple, full range of motion, trachea midline Respiratory Exam: normal breath sounds, lungs clear, no respiratory distress, no accessory muscle use, No chest non-tender, No respiratory distress Cardiovascular/Chest Exam: normal heart sounds, regular rate/rhythm Gastrointestinal/Abdominal Exam: soft, non tender, no distention, no mass, no guarding, no ecchymosis, no organomegaly, no pulsatile mass, normal bowel sounds Pelvic Exam: not done Rectal Exam: not done Extremity Exam: non-tender, normal range of motion, normal inspection, normal capillary refill, no calf tenderness Neurologic Exam: alert, oriented x 3, cooperative, 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 II-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 nml as tested, normal mood/affect, nml cerebellar function, nml station & gait, sensation nml Skin Exam: normal color, warm, dry Lymphatic: No adenopathy SpO2 Interpretation: normal O2 Delivery: Room Air - Course Nursing assessment & vital signs reviewed: Yes Ordered Tests: Active Orders 24 hr Category Date Time Status CHEST 1 VIEW (PORTABLE) Stat Exams 07/23/21 21:34 Taken AMYLASE Stat Lab 07/23/21 21:00 Completed CBC W DIFF Stat Lab 07/23/21 21:00 Completed CMP Stat Lab 07/23/21 21:00 Completed CULTURE,URINE Stat Lab 07/23/21 Received LIPASE Stat Lab 07/23/21 21:00 Completed Lactic Acid Stat Lab 07/23/21 21:16 Completed UA W/RFX CULTURE Stat Lab 07/23/21 Completed Lab/Rad Data: Laboratory Result Diagrams 07/23/21 21:00 07/23/21 21:00 Laboratory Results 07/23/21 07/23/21 07/23/21 Range/Units Unknown 21:16 21:00 WBC (4.0-10.5) K/mm3 RBC (4.1-5.4) M/mm3 Hgb (12.0-16.0) gm/dl Hct (35-47) % MCV (78-100) fl MCH (26-32) pg MCHC (32-36) g/dl RDW (11.5-14.0) % Plt Count (150-450) K/mm3 MPV (7.5-11.0) fl Gran % (36.0-66.0) % Eos # (Auto) (0-0.5) Absolute Lymphs (auto) (1.0-4.6) Absolute Monos (auto) (0.0-1.3) Lymphocytes % (24.0-44.0) % Monocytes % (0.0-12.0) % Eosinophils % (0.00-5.0) % Basophils % (0.0-0.4) % Absolute Granulocytes (1.4-6.9) Basophils # (0-0.4) Sodium (137-145) mmol/L Potassium (3.5-5.1) mmol/L Chloride (98-107) mmol/L Carbon Dioxide (22-30) mmol/L Anion Gap (5-15) MEQ/L BUN (7-17) mg/dL Creatinine (0.52-1.04) mg/dL Estimated GFR ML/MIN Glucose (74-106) mg/dL Lactic Acid 1.4 (0.4-2.0) Calcium (8.4-10.2) mg/dL Total Bilirubin (0.2-1.3) mg/dL AST (14-36) U/L ALT (0-35) U/L Alkaline Phosphatase (38-126) U/L Serum Total Protein (6.3-8.2) g/dL Albumin (3.5-5.0) g/dL Amylase (30-110) U/L Lipase (23-300) U/L Urinalys Dipstick Clnc MAIN LAB Urine Color YELLOW (YELLOW) Urine Appearance CLEAR (CLEAR) Urine pH 7.0 (5-6) Ur Specific [place] 1.010 (1.005-1.025) POC Urine Protein Conf NEGATIVE (Negative) Urine Ketones NEGATIVE (NEGATIVE) Urine Nitrite NEGATIVE (NEGATIVE) Urine Bilirubin NEGATIVE (NEGATIVE) Urine Urobilinogen 0.2 (0-1) mg/dL Urine Leukocytes MODERATE (NEGATIVE) Urine WBC (Auto) 11-15 (0-5) /HPF Urine RBC (Auto) 0-2 (0-2) /HPF U Epithel Cells (Auto) NONE (FEW) /HPF Urine Bacteria (Auto) RARE (NEGATIVE) /HPF Urine RBC MODERATE (0-5) Michelet/ul Ur Culture Indicated? YES Urine Glucose NEGATIVE (NEGATIVE) mg/dL Influenza Type A Ag (NEGATIVE) Influenza Type B Ag (NEGATIVE) RSV (PCR) (Negative) SARS-CoV-2 (PCR) (NEGATIVE) Group A Strep Antibody NOT DETECTED (NEGATIVE) 07/23/21 07/23/21 07/23/21 Range/Units 21:00 21:00 21:00 WBC 9.8 (4.0-10.5) K/mm3 RBC 4.99 (4.1-5.4) M/mm3 Hgb 14.0 (12.0-16.0) gm/dl Hct 42.3 (35-47) % MCV 84.8 (78-100) fl MCH 28.1 (26-32) pg MCHC 33.1 (32-36) g/dl RDW 13.5 (11.5-14.0) % Plt Count 248 (150-450) K/mm3 MPV 10.4 (7.5-11.0) fl Gran % 70.8 H (36.0-66.0) % Eos # (Auto) 0.10 (0-0.5) Absolute Lymphs (auto) 1.58 (1.0-4.6) Absolute Monos (auto) 1.14 (0.0-1.3) Lymphocytes % 16.1 L (24.0-44.0) % Monocytes % 11.6 (0.0-12.0) % Eosinophils % 1.0 (0.00-5.0) % Basophils % 0.5 (0.0-0.4) % Absolute Granulocytes 6.95 H (1.4-6.9) Basophils # 0.05 (0-0.4) Sodium 137 (137-145) mmol/L Potassium 3.3 L (3.5-5.1) mmol/L Chloride 102 (98-107) mmol/L Carbon Dioxide 25 (22-30) mmol/L Anion Gap 13.8 (5-15) MEQ/L BUN 10 (7-17) mg/dL Creatinine 0.69 (0.52-1.04) mg/dL Estimated GFR > 60.0 ML/MIN Glucose 168 H (74-106) mg/dL Lactic Acid (0.4-2.0) Calcium 9.2 (8.4-10.2) mg/dL Total Bilirubin 0.50 (0.2-1.3) mg/dL AST 18 (14-36) U/L ALT 15 (0-35) U/L Alkaline Phosphatase 66 (38-126) U/L Serum Total Protein 7.0 (6.3-8.2) g/dL Albumin 3.9 (3.5-5.0) g/dL Amylase 43 (30-110) U/L Lipase 36 (23-300) U/L Urinalys Dipstick Clnc Urine Color (YELLOW) Urine Appearance (CLEAR) Urine pH (5-6) Ur Specific [place] (1.005-1.025) POC Urine Protein Conf (Negative) Urine Ketones (NEGATIVE) Urine Nitrite (NEGATIVE) Urine Bilirubin (NEGATIVE) Urine Urobilinogen (0-1) mg/dL Urine Leukocytes (NEGATIVE) Urine WBC (Auto) (0-5) /HPF Urine RBC (Auto) (0-2) /HPF U Epithel Cells (Auto) (FEW) /HPF Urine Bacteria (Auto) (NEGATIVE) /HPF Urine RBC (0-5) Michelet/ul Ur Culture Indicated? Urine Glucose (NEGATIVE) mg/dL Influenza Type A Ag NEGATIVE (NEGATIVE) Influenza Type B Ag NEGATIVE (NEGATIVE) RSV (PCR) NEGATIVE (Negative) SARS-CoV-2 (PCR) NEGATIVE (NEGATIVE) Group A Strep Antibody (NEGATIVE) - Progress Progress Note: 07/23/21 22:05 Chest x-ray shows no acute cardiopulmonary process. Counseled pt/family regarding: lab results, diagnosis, need for follow-up, rad results - Departure Departure Disposition: Home Clinical Impression: UTI (urinary tract infection) Condition: Stable Critical Care Time: No Referrals: KRIS LAMB DO [Primary Care Provider] - Follow up/PCP as directed Additional Instructions: Drink plenty of fluids. Take your antibiotics as prescribed. Follow-up with your primary care physician for further evaluation and management Prescriptions: Smz/Tmp Ds Tablet [Bactrim Ds Tablet] 1 udtab PO BID #14 tablet
[2021-07-23 20:50] LABS: Appearance CLEAR (CLEAR); Bilirubin NEGATIVE (NEGATIVE); Dipstick done @ ? MAIN LAB; Glucose NEGATIVE (NEGATIVE); Ketones NEGATIVE (NEGATIVE); Nitrite NEGATIVE (NEGATIVE); Protein,Urine Dip NEGATIVE (Negative); RBC MODERATE Ery/ul (0-5); Urobilinogen 0.2 mg/dL (0-1)
[2021-07-23 20:51] LABS: Bacteria RARE /HPF (NEGATIVE); RBC 0-2 /HPF (0-2)
[2021-07-23 20:52] LABS: Urine Cultured Indicated? YES
[2021-07-23 21:15] LABS: Absolute Neutrophil Ct (ANC) 6.95 (1.4-6.9); Basophil (Absolute #) 0.05 (0-0.4); Hematocrit 42.3 % (35-47); Lymphocyte (Absolute #) 1.58 (1.0-4.6); Lymphocytes % 16.1 % (24.0-44.0); Mean Cell Volume 84.8 fl (78-100); Mean Corpuscular Hemoglobin 28.1 pg (26-32); Mean Corpuscular Hgb Concent. 33.1 g/dl (32-36); Mean Platelet Volume 10.4 fl (7.5-11.0); Monocyte (Absolute #) 1.14 (0.0-1.3); Monocytes % 11.6 % (0.0-12.0); Neutrophil % 70.8 % (36.0-66.0); Platelet Count 248 K/mm3 (150-450); Red Blood Count 4.99 M/mm3 (4.1-5.4); Red Cell Distribution Width 13.5 % (11.5-14.0); White Blood Count 9.8 K/mm3 (4.0-10.5)
[2021-07-23 21:29] LABS: ALBUMIN 3.9 g/dL (3.5-5.0); ALKALINE PHOSPHATASE 66 U/L (38-126); AMYLASE 43 U/L (30-110); ANION GAP 13.8 MEQ/L (5-15); BLOOD UREA NITROGEN 10 mg/dL (7-17); CHLORIDE 102 mmol/L (98-107); Calcium 9.2 mg/dL (8.4-10.2); Carbon Dioxide 25 mmol/L (22-30); Creatinine 1 0.69 mg/dL (0.52-1.04); EST GLOMERULAR FILTRATION RATE > 60.0 ML/MIN; Glucose 168 mg/dL (74-106); LIPASE 36 U/L (23-300); Potassium 3.3 mmol/L (3.5-5.1); SGOT/AST 18 U/L (14-36); SGPT/ALT 15 U/L (0-35); SODIUM 137 mmol/L (137-145)
[2021-07-23 21:56] LABS: INFLUENZA A NEGATIVE (NEGATIVE); INFLUENZA B NEGATIVE (NEGATIVE); RESPIRATORY SYNCTIAL VIRUS NEGATIVE (Negative); SARS-CoV-2 Xpert Express NEGATIVE (NEGATIVE)
[2021-07-23] MEDS ORDERED: BACTRIM DS TABLET PO STA (22:07)
[2021-07-23 22:15] VITALS: BP 163/88; PULSE 120; O2SAT 100
[2021-07-23] MEDS ORDERED: BACTRIM DS TABLET PO ONE (22:16)
--- NOTE | 2021-07-24 09:06 | XRAY ---
Indication: Cough and fever. COPD. Comparison: January 13, 2021. Portable chest again demonstrates normal heart and lungs with small left base calcified granuloma. Bony thorax intact again with mild degenerative changes. No new/acute findings.
== END 2021-07-23 22:32 | disposition home or self-care (01) ==
LOC: ED 20:08
DX: N39.0 Urinary tract infection, site not specified (principal); R10.819 Abdominal tenderness, unspecified site; R51.9 Headache, unspecified; M79.10 Myalgia, unspecified site; I10 Essential (primary) hypertension; J44.9 Chronic obstructive pulmonary disease, unspecified; E11.42 Type 2 diabetes mellitus with diabetic polyneuropathy; Z72.0 Tobacco use; Z79.84 Long term (current) use of oral hypoglycemic drugs; Z79.899 Other long term (current) drug therapy
CPT/HCPCS: 0241U; 36415; 71045; 80053; 81015; 82150; 83605; 83690; 85025; 87077; 87086; 87186; 87651; 99284; A9270-GY

== ENCOUNTER 2021-12-10 08:54 | Emergency (ER) | payer OTHER ==
[2021-12-10] MEDS ORDERED: PROVENTIL 2.5 MG/3 ML NEB IH ONE ×2 (09:11→09:26)
[2021-12-10 09:22] LABS: Absolute Neutrophil Ct (ANC) 5.23 x10^3/uL (1.4-6.9); Basophil (Absolute #) 0.08 x10^3/uL (0-0.4); Eosinophil % 2.9 % (0.00-5.0); Eosinophil (Absolute #) 0.24 x10^3/uL (0-0.5); Hematocrit 47.9 % (35-47); Hemoglobin 15.4 g/dL (12.0-16.0); Lymphocyte (Absolute #) 2.05 x10^3/uL (1.0-4.6); Lymphocytes % 24.6 % (24.0-44.0); Mean Cell Volume 85.8 fL (78-100); Mean Corpuscular Hemoglobin 27.6 pg (26-32); Mean Corpuscular Hgb Concent. 32.2 g/dL (32-36); Mean Platelet Volume 9.8 fL (7.5-11.0); Monocyte (Absolute #) 0.69 x10^3/uL (0.0-1.3); Monocytes % 8.3 % (0.0-12.0); Neutrophil % 62.8 % (36.0-66.0); Platelet Count 273 x10^3/uL (150-450); Red Blood Count 5.58 x10^6/uL (4.1-5.4); Red Cell Distribution Width 13.2 % (11.5-14.0); White Blood Count 8.3 x10^3/uL (4.0-10.5)
[2021-12-10 09:31] VITALS: O2SAT 100
[2021-12-10 09:37] LABS: ALBUMIN 4.4 g/dL (3.5-5.0); ALKALINE PHOSPHATASE 77 U/L (38-126); ANION GAP 11.8 MEQ/L (5-15); BLOOD UREA NITROGEN 7 mg/dL (7-17); CHLORIDE 103 mmol/L (98-107); Calcium 9.5 mg/dL (8.4-10.2); Carbon Dioxide 29 mmol/L (22-30); Creatinine 1 0.59 mg/dL (0.52-1.04); EST GLOMERULAR FILTRATION RATE > 60.0 ML/MIN; Glucose 110 mg/dL (74-106); Potassium 3.9 mmol/L (3.5-5.1); SGOT/AST 28 U/L (14-36); SGPT/ALT 20 U/L (0-35); SODIUM 140 mmol/L (137-145); Total Protein 7.3 g/dL (6.3-8.2)
--- NOTE | 2021-12-10 09:45 | XRAY ---
Indication: Cough and congestion. Pneumonia. Comparison: July 23, 2021 Portable chest again demonstrates normal heart and lungs with incidental left base calcified granuloma. Bony thorax intact again with mild degenerative changes. No new/acute findings.
[2021-12-10 10:00] LABS: INFLUENZA A NEGATIVE (NEGATIVE); INFLUENZA B NEGATIVE (NEGATIVE); RESPIRATORY SYNCTIAL VIRUS NEGATIVE (Negative); SARS-CoV-2 Xpert Express NEGATIVE (NEGATIVE)
--- NOTE | 2021-12-10 10:03 | ERPHSYRPT ---
- History of Present Illness Time Seen by Provider: 12/10/21 09:00 Source: patient Exam Limitations: no limitations Patient Subjective Stated Complaint: Pt states "I have had congestion for over a week. I am coughing up thick green stuff." Triage Nursing Assessment: PT presented alert and oriented X3, skin pwd. Pt ambulates with an upright steady gait, able to speak in clear full sentences pt in no apparent respiratory distress. Physician History: 51-year-old female presents to emergency department for evaluation of congestion and cough. Patient has history of COPD. She requires 3 L nasal cannula 24 hours a day. Patient symptoms have been ongoing for approximately 1 week. Symptoms are progressively worsening. Patient states she is got thick greenish discharge from her nose. No fever. No nausea vomiting. No trauma. No rash. Symptoms are progressive. Symptoms are moderate in intensity. Tenderness palpation at frontal and maxillary sinuses. Patient otherwise feels well. She voices no other complaints or concerns at this time. Portions of this note were created with voice recognition technology. There may be grammatical, spelling, punctuation or sound alike errors Timing/Duration: week(s) (1 week) Severity: moderate Modifying Factors: Improves With: other (Patient has taken Tylenol and [id number] Sudafed with some improvement) Associated Symptoms: denies symptoms, cough, No nausea, No vomiting, No shortness of breath, No chills, No chest pain, No weakness Allergies/Adverse Reactions: meperidine [From Demerol] Allergy (Intermediate, Verified 07/23/21 20:40) Hives Penicillins Allergy (Intermediate, Verified 07/23/21 20:40) Swelling of Tongue and Lips morphine Adverse Reaction (Severe, Verified 07/23/21 20:40) Swelling of Tongue and Lips burning, no rash Home Medications: Duloxetine HCl [Cymbalta] 60 mg PO DAILY 09/24/15 [History] Metformin HCl 500 mg [Glucophage 500 MG] 1,000 mg PO BID 09/24/15 [Histor y] Buspirone HCl 7.5 mg PO BID 03/09/19 [History] Gabapentin 300 mg PO BID 03/09/19 [History] Cyclobenzaprine HCl 10 mg [Cyclobenzaprine 10 MG] 10 mg PO BID 01/14/21 [History] Isosorbide Mononitrate 60 mg [Imdur 60MG] 60 mg PO DAILY 01/14/21 [History] Ziprasidone 20 mg [Geodon 20 MG Capsule] 20 mg PO BID 07/23/21 [History] Hx Tetanus, Diphtheria Vaccination/Date Given: Yes Hx Influenza Vaccination/Date Given: No Hx Pneumococcal Vaccination/Date Given: No Immunizations Up to Date: Yes Travel Risk - International Travel Have you traveled outside of the country in past 3 weeks: No - Coronavirus Screening Are you exhibiting any of the following symptoms?: Yes Symptoms: Cough: New Onset, Shortness of Breath, Vomiting/Diarrhea, Headaches/Body Aches/Fatigue - Vaccine Status Have you recieved a Covid-19 vaccination: 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: [employer] - Vaccination Dates Date of 2cond Vaccination (if applicable): 01/20/2021 - Review of Systems Constitutional: No Symptoms, No Fever, No Chills Eyes: No Symptoms Ears, Nose, & Throat: No Symptoms Respiratory: No Symptoms, No Cough, No Dyspnea Cardiac: No Symptoms, No Chest Pain, No Edema, No Syncope Abdominal/Gastrointestinal: No Symptoms, No Abdominal Pain, No Nausea, No Vomiting, No Diarrhea Genitourinary Symptoms: No Symptoms, No Dysuria Musculoskeletal: No Symptoms, No Back Pain, No Neck Pain Skin: No Symptoms, No Rash Neurological: No Symptoms, No Dizziness, No Focal Weakness, No Sensory Changes Psychological: No Symptoms Endocrine: No Symptoms Hematologic/Lymphatic: No Symptoms Immunological/Allergic: No Symptoms All Other Systems: Reviewed and Negative - Past Medical History Pertinent Past Medical History: Yes Neurological History: Peripheral Neuropathy ENT History: No Pertinent History Cardiac History: Hypertension Respiratory History: COPD Endocrine Medical History: Diabetes Type II Musculoskeletal History: Osteoarthritis GI Medical History: No Pertinent History History: No Pertinent History Psycho-Social History: Depression Female Reproductive Disorders: No Pertinent History Other Medical History: SMOKER, STINT IN HER HEART. - Past Surgical History Past Surgical History: Yes Neuro Surgical History: No Pertinent History Cardiac: No Pertinent History Respiratory: No Pertinent History Gastrointestinal: Cholecystectomy Genitourinary: No Pertinent History Musculoskeletal: Orthopedic Surgery Female Surgical History: Section, Tubal Ligation Other Surgical History: hand surgery removal of for obj - Social History Smoking Status: Current every day smoker How long have you smoked: 27 YRS Exposure to second hand smoke: Yes Drug Use: marijuana Patient Lives Alone: Yes - Female History Hx Last Menstrual Period: none Hx Now: No - Nursing Vital Signs Nursing Vital Signs: Initial Vital Signs Temperature 97.8 F 12/10/21 08:55 Pulse Rate 75 12/10/21 08:55 Respiratory Rate 22 12/10/21 08:55 Blood Pressure 160/87 12/10/21 08:55 O2 Sat by Pulse Oximetry 99 12/10/21 08:55 Pain Scale Pain Intensity 7 - Physical Exam General Appearance: no apparent distress, alert Eye Exam: PERRL/EOMI, eyes nml inspection Ears, Nose, Throat Exam: normal ENT inspection, TMs normal, pharynx normal, moist mucous membranes Neck Exam: normal inspection, non-tender, supple, full range of motion Respiratory Exam: normal breath sounds, lungs clear, airway intact, other (Slight wheeze observed at bilateral bases. Otherwise normal lung exam), No respiratory distress Cardiovascular Exam: regular rate/rhythm, normal heart sounds, normal peripheral pulses Gastrointestinal/Abdomen Exam: soft, normal bowel sounds, No tenderness, No mass Pelvic Exam: No not done Back Exam: normal inspection, normal range of motion, No CVA tenderness, No vertebral tenderness Extremity Exam: normal inspection, normal range of motion, pelvis stable Neurologic Exam: alert, oriented x 3, cooperative, normal mood/affect, nml c erebellar function, nml station & gait, sensation nml, No motor deficits Skin Exam: normal color, warm, dry, No rash Lymphatic Exam: No adenopathy SpO2 Interpretation: normal SpO2: 100 O2 Delivery: Room Air - Course Nursing assessment & vital signs reviewed: Yes - Radiology Exams Chest X-ray Interpretation: Teleradiologist Report (Chest x-ray clear. No pneumonia. Lung granuloma.) Ordered Tests: Active Orders 24 hr Category Date Time Status Kiln Puller STAT Care 12/10/21 09:11 Active EKG-ER Only STAT Care 12/10/21 09:10 Active IV Insertion STAT Care 12/10/21 09:10 Active Pulse Oximetry (ED) STAT Care 12/10/21 09:10 Active CHEST 1 VIEW (PORTABLE) Stat Exams 12/10/21 09:08 Completed CBC W DIFF Stat Lab 12/10/21 09:21 Completed CMP Stat Lab 12/10/21 09:21 Completed TROPONIN Q4H Lab 12/10/21 09:21 Completed TROPONIN Q4H Lab 12/10/21 13:15 Ordered TROPONIN Q4H Lab 12/10/21 17:15 Ordered Respiratory Therapy Assessment DAILY RT 12/10/21 09:29 Active Medication Summary Discontinued Medications Generic Name Dose Route Start Last Admin Trade Name Chiquita PRN Reason Stop Dose Admin Albuterol Sulfate 2.5 mg 12/10/21 09:11 12/10/21 09:26 Albuterol Sulfate 2.5 Mg/3 Ml Neb IH 12/10/21 09:12 2.5 mg STAT ONE Administration Albuterol Sulfate Confirm 12/10/21 09:26 Albuterol Sulfate 2.5 Mg/3 Ml Neb Administered 12/10/21 09:27 Dose 2.5 mg IH .STK-MED ONE Lab/Rad Data: Laboratory Result Diagrams 12/10/21 09:21 12/10/21 09:21 Laboratory Results 12/10/21 12/10/21 12/10/21 Range/Units 09:21 09:21 09:21 WBC 8.3 (4.0-10.5) x10^3/uL RBC 5.58 H (4.1-5.4) x10^6/uL Hgb 15.4 (12.0-16.0) g/dL Hct 47.9 H (35-47) % MCV 85.8 (78-100) fL MCH 27.6 (26-32) pg MCHC 32.2 (32-36) g/dL RDW 13.2 (11.5-14.0) % Plt Count 273 (150-450) x10^3/uL MPV 9.8 (7.5-11.0) fL Gran % 62.8 (36.0-66.0) % Immature Gran % (Auto) 0.4 (0.00-0.4) % Nucleat RBC Rel Count 0.0 (0.00-0.1) % Eos # (Auto) 0.24 (0-0.5) x10^3/uL Immature Gran # (Auto) 0.03 (0.00-0.03) x10^3u/L Absolute Lymphs (auto) 2.05 (1.0-4.6) x10^3/uL Absolute Monos (auto) 0.69 (0.0-1.3) x10^3/uL Absolute Nucleated RBC 0.00 (0.00-0.01) x10^3u/L Lymphocytes % 24.6 (24.0-44.0) % Monocytes % 8.3 (0.0-12.0) % Eosinophils % 2.9 (0.00-5.0) % Basophils % 1.0 (0.0-0.4) % Absolute Granulocytes 5.23 (1.4-6.9) x10^3/uL Basophils # 0.08 (0-0.4) x10^3/uL Sodium 140 (137-145) mmol/L Potassium 3.9 (3.5-5.1) mmol/L Chloride 103 (98-107) mmol/L Carbon Dioxide 29 (22-30) mmol/L Anion Gap 11.8 (5-15) MEQ/L BUN 7 (7-17) mg/dL Creatinine 0.59 (0.52-1.04) mg/dL Estimated GFR > 60.0 ML/MIN Glucose 110 H (74-106) mg/dL Calcium 9.5 (8.4-10.2) mg/dL Total Bilirubin 0.60 (0.2-1.3) mg/dL AST 28 (14-36) U/L ALT 20 (0-35) U/L Alkaline Phosphatase 77 (38-126) U/L Troponin I < 0.012 (0.000-0.034) ng/mL Serum Total Protein 7.3 (6.3-8.2) g/dL Albumin 4.4 (3.5-5.0) g/dL - Progress Progress: improved Progress Note: Patient reassessed. Work-up essentially unremarkable. Chest x-ray negative for pneumonia. Patient does have a URI/sinusitis. Will treat with antibiotics. No occasion for steroids at this time. Patient agrees to follow-up with her primary care doctor within 48 hours for evaluation. Portions of this note were created with voice recognition technology. There may be grammatical, spelling, punctuation or sound alike errors 12/10/21 10:01 Counseled pt/family regarding: lab results, diagnosis, need for follow-up, rad results - Departure Departure Disposition: Home Clinical Impression: Sinusitis, Cough Condition: Stable Critical Care Time: No Referrals: KRIS CALLAHAN DO [Primary Care Provider] - Follow up/PCP as directed Additional Instructions: Discharge/Care Plan BRAN FRASER was seen on 12/10/21 in the Emergency Room. The patient was counseled regarding Diagnosis,Lab results, Imaging studies, need for follow up and when to return to the Emergency Room. Prescriptions given: Discharge Note I have spoken with the patient and/or caregivers. I have explained the patient's condition, diagnosis and treatment plan based on the information available to me at this time. I have answered the patient's and/or caregiver's questions and addressed any concerns. The patient and/or caregivers have as good understanding of the patient's diagnosis, condition and treatment plan as can be expected at this point. The vital signs have been stable. The patient's condition is stable and appropriate for discharge from the emergency department. The patient will pursue further outpatient evaluation with the primary care physician or other designated or consulting physician as outlined in the discharge instructions. The patient and/or caregivers are agreeable to this plan of care and follow-up instructions have been explained in detail. The patient and/or caregivers have received these instruction. The patient/and or caregivers are aware that any significant change in condition or worsening of symptoms shou ld prompt an immediate return to this or the closest emergency department or call 911. Prescriptions: Levofloxacin [Levaquin 500 MG Tablet] 500 mg PO DAILY #7 tablet
[2021-12-10 10:40] VITALS: BP 164/89; PULSE 83
== END 2021-12-10 10:43 | disposition home or self-care (01) ==
LOC: ED 08:54
DX: J32.8 Other chronic sinusitis (principal); R05.1 Acute cough; R09.81 Nasal congestion; J44.9 Chronic obstructive pulmonary disease, unspecified; I10 Essential (primary) hypertension; E11.42 Type 2 diabetes mellitus with diabetic polyneuropathy; Z72.0 Tobacco use; Z79.84 Long term (current) use of oral hypoglycemic drugs; Z79.899 Other long term (current) drug therapy; Z99.81 Dependence on supplemental oxygen
CPT/HCPCS: 0241U; 36415; 71045; 80053; 84484; 85025; 94640; 99283; J7609; A9270-GY

== ENCOUNTER 2022-03-05 19:53 | Emergency (ER) | payer OTHER | END 2022-03-05 21:42 | disposition left against medical advice (07) | LOC: ED 19:53 | DX: Z53.21 Procedure and treatment not carried out due to patient leaving prior to being seen by health care provider (principal) | CPT/HCPCS: 99281 ==

== ENCOUNTER 2022-03-06 09:19 | Emergency (ER) | payer OTHER ==
[2022-03-06 10:37] LABS: Group A Strep DETECTED (NEGATIVE)
[2022-03-06 10:53] LABS: INFLUENZA A NEGATIVE (NEGATIVE); INFLUENZA B NEGATIVE (NEGATIVE); RESPIRATORY SYNCTIAL VIRUS NEGATIVE (Negative); SARS-CoV-2 Xpert Express NEGATIVE (NEGATIVE)
[2022-03-06 10:56] VITALS: O2SAT 99
[2022-03-06 11:37] VITALS: PULSE 87
--- NOTE | 2022-03-06 12:33 | ERPHSYRPT ---
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 Physician History: 51 years old female presented in the ER with chief complaint of flulike symptoms since yesterday with progressive worsening. Reports minimal nonproductive cough congestion, sore throat with body aches fatigue and tiredness. Timing/Duration: yesterday, gradual onset, worse Cough Quality/Degree: dry cough Possible Cause: illness exposure Modifying Factors: Worsens With: coughing Associated Symptoms: fever, chills, cough, muscle aches, nasal congestion, nasal drainage, sinus infection, sore throat, No lightheadedness Allergies/Adverse Reactions: meperidine [From Demerol] Allergy (Intermediate, Verified 03/06/22 09:50) Hives Penicillins Allergy (Intermediate, Verified 03/06/22 09:50) Swelling of Tongue and Lips morphine Adverse Reaction (Severe, Verified 03/06/22 09:50) Swelling of Tongue and Lips burning, no rash Home Medications: Duloxetine HCl [Cymbalta] 60 mg PO DAILY 09/24/15 [History] Metformin HCl 500 mg [Glucophage 500 MG] 1,000 mg PO BID 09/24/15 [History] Buspirone HCl 7.5 mg PO BID 03/09/19 [History] Gabapentin 300 mg PO BID 03/09/19 [History] Cyclobenzaprine HCl 10 mg [Cyclobenzaprine 10 MG] 10 mg PO BID 01/14/21 [History] Isosorbide Mononitrate 60 mg [Imdur 60MG] 60 mg PO DAILY 01/14/21 [History] Ziprasidone 20 mg [Geodon 20 MG Capsule] 20 mg PO BID 07/23/21 [History] Trazodone HCl 50 mg [Desyrel 50 mg] 25 mg PO HS 03/06/22 [History] Hx Tetanus, Diphtheria Vaccination/Date Given: Yes Hx Influenza Vaccination/Date Given: Yes Hx Pneumococcal Vaccination/Date Given: No Immunizations Up to Date: Yes Travel Risk - International Travel Have you traveled outside of the country in past 3 weeks: No - Coronavirus Screening Are you exhibiting any of the following symptoms?: No Symptoms: Cough: New Onset Close contact with a COVID-19 positive Pt in past 14-21 Days: No - Vaccine Status Have you recieved a Covid-19 vaccination: Yes 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 - Vaccination Dates Dates if Unknown: unk - Review of Systems Constitutional: Fever, Chills Eyes: No Symptoms Ears, Nose, & Throat: Nose Congestion, Throat Pain, Throat Swelling Respiratory: Cough, No Dyspnea Cardiac: No Symptoms Abdominal/Gastrointestinal: No Symptoms Genitourinary Symptoms: No Symptoms Musculoskeletal: Myalgias Neurological: Headache Psychological: No Symptoms Endocrine: No Symptoms - Past Medical History Pertinent Past Medical History: Yes Neurological History: Peripheral Neuropathy ENT History: No Pertinent History Cardiac History: Hypertension Respiratory History: COPD Endocrine Medical History: Diabetes Type II Musculoskeletal History: Osteoarthritis GI Medical History: No Pertinent History History: No Pertinent History Psycho-Social History: Depression Female Reproductive Disorders: No Pertinent History Other Medical History: SMOKER, STINT IN HER HEART. - Past Surgical History Past Surgical History: Yes Neuro Surgical History: No Pertinent History Cardiac: No Pertinent History Respiratory: No Pertinent History Gastrointestinal: Cholecystectomy Genitourinary: No Pertinent History Musculoskeletal: Orthopedic Surgery Female Surgical History: Section, Tubal Ligation Other Surgical History: hand surgery removal of for obj - Social History Smoking Status: Current every day smoker How long have you smoked: 27 YRS Exposure to second hand smoke: Yes Drug Use: marijuana Patient Lives Alone: Yes - Female History Hx Now: No - Nursing Vital Signs Nursing Vital Signs: Initial Vital Signs Temperature 99.1 F 03/06/22 09:41 Pulse Rate 91 H 03/06/22 09:41 Respiratory Rate 22 03/06/22 09:41 Blood Pressure 166/99 03/06/22 09:41 O2 Sat by Pulse Oximetry 100 03/06/22 09:41 Pain Scale Pain Intensity 0 - Physical Exam General Appearance: no apparent distress, alert Eye Exam: PERRL/EOMI Ears, Nose, Throat Exam: pharyngeal erythema Neck Exam: normal inspection, non-tender, supple, full range of motion Respiratory Exam: normal breath sounds, lungs clear Cardiovascular Exam: regular rate/rhythm, normal heart sounds Gastrointestinal/Abdomen Exam: soft, No tenderness Back Exam: normal inspection, normal range of motion Neurologic Exam: alert, oriented x 3, cooperative Skin Exam: normal color SpO2 Interpretation: normal SpO2: 99 O2 Delivery: Room Air Lab/Rad Data: Laboratory Results 03/06/22 Range/Units 10:11 Influenza Type A Ag NEGATIVE (NEGATIVE) Influenza Type B Ag NEGATIVE (NEGATIVE) RSV (PCR) NEGATIVE (Negative) SARS-CoV-2 (PCR) NEGATIVE (NEGATIVE) Group A Strep Antibody DETECTED (NEGATIVE) - Progress Progress: re-examined Air Movement: good Progress Note: 03/06/22 12:30 51-year-old is evaluated for generalized body ache fatigue tiredness and sore throat. Patient is afebrile. Not in any distress. Has positive strep, started on Z-Bladimir. Recommended Tylenol/ibuprofen as needed. Outpatient follow-up. Discussed signs symptoms of worsening needing return to ER which she seems understanding. Blood Culture(s) Obtained: No Antibiotics given: Yes Counseled pt/family regarding: lab results, diagnosis, need for follow-up - Departure Departure Disposition: Home Clinical Impression: Strep pharyngitis Condition: Stable Critical Care Time: No Referrals: KRIS CALLAHAN DO [Primary Care Provider] - Follow Up with PCP/3 days Instructions: Sore Throat, Adult (DC) Additional Instructions: Take Tylenol/ibuprofen as needed. Follow-up with primary care for reevaluation. Return to ER for worsening sore throat, persistent high-grade fever chills, difficulty breathing etc. Prescriptions: Azithromycin 250 mg [Zithromax 250 MG TABLET] 250 mg PO ZPACK #6 tablet
[2022-03-06 12:35] VITALS: BP 139/79
== END 2022-03-06 12:38 | disposition home or self-care (01) ==
LOC: ED 09:19
DX: J02.0 Streptococcal pharyngitis (principal); B95.0 Streptococcus, group A, as the cause of diseases classified elsewhere; R05.1 Acute cough; M79.10 Myalgia, unspecified site; R53.83 Other fatigue; I10 Essential (primary) hypertension; E11.42 Type 2 diabetes mellitus with diabetic polyneuropathy; Z79.84 Long term (current) use of oral hypoglycemic drugs; Z79.899 Other long term (current) drug therapy; Z72.0 Tobacco use
CPT/HCPCS: 0241U; 87651; 99283

== ENCOUNTER 2022-07-29 05:05 | Emergency (ER) | payer OTHER ==
--- NOTE | 2022-07-29 05:51 | ERPHSYRPT ---
- History of Present Illness Source: patient Exam Limitations: no limitations Patient Subjective Stated Complaint: pt states "I have been constipated for 9 days. I went and seen Dr. Lamb on tuesday and got xrays done but they haven't called me back with the result." Triage Nursing Assessment: pt ambulatory to bed by self, pt alert and oriented x3, pt c/o constipation x9 days, pt has taken 2 doses of miralax 07/27/22 with no relief, abd distended and tender upon palpation, last meal was 07/28/22 at noon Hx Tetanus, Diphtheria Vaccination/Date Given: Yes Hx Influenza Vaccination/Date Given: Yes Hx Pneumococcal Vaccination/Date Given: No Immunizations Up to Date: Yes <HEIKE RUBIO - Last Filed: 07/29/22 05:46> <LINCOLN PRINCE - Last Filed: 07/29/22 09:39> - History of Present Illness Physician History: 52-year-old female with past medical history of COPD on home oxygen via nasal cannula with abdominal pain and constipation for 9 days. Patient reports her last bowel movement was 9 days ago. Reports prior to having this constipation she was having bowel movements regularly daily. Reports having abdominal pain in the epigastric region. Patient denies having any nausea or vomiting. Alecia ent reports her last meal was yesterday morning at 11 AM. Patient reports she was seen by her PCP recently and had a x-ray done. (HEIKE RUBIO) Patient is a 52-year-old female presents to our ED with complaints of abdominal pain and constipation. Patient initially seen by Dr. Wilson. CT scan pending at change of shift. Dr. Prince advised to follow-up on CT scan and discharge home if negative. CT scan reveals a left adrenal gland nodule that will require MRI follow-up. Lumbar spine degenerative changes which may also require MRI follow- up. Lung hamartoma. Patient reassessed. Patient is well. CBC CMP troponin ordered by previous physician. No significant findings observed. EKG also ordered by previous physician. Vital stable. Will discharge home. Patient voices no other complaints or concerns at this time. Portions of this note were created with voice recognition technology. There may be grammatical, spelling, punctuation or sound alike errors (LINCOLN PRINCE) Allergies/Adverse Reactions: meperidine [From Demerol] Allergy (Intermediate, Verified 07/29/22 05:25) Hives Penicillins Allergy (Intermediate, Verified 07/29/22 05:25) Swelling of Tongue and Lips morphine Adverse Reaction (Severe, Verified 07/29/22 05:25) Swelling of Tongue and Lips burning, no rash Home Medications: Duloxetine HCl [Cymbalta] 60 mg PO DAILY 09/24/15 [History] Metformin HCl 500 mg [Glucophage 500 MG] 1,000 mg PO BID 09/24/15 [History] Buspirone HCl 7.5 mg PO BID 03/09/19 [History] Gabapentin 300 mg PO BID 03/09/19 [History] Cyclobenzaprine HCl 10 mg [Cyclobenzaprine 10 MG] 10 mg PO BID 01/14/21 [History] Isosorbide Mononitrate 60 mg [Imdur 60MG] 60 mg PO DAILY 01/14/21 [History] Ziprasidone 20 mg [Geodon 20 MG Capsule] 20 mg PO BID 07/23/21 [History] Trazodone HCl 50 mg [Desyrel 50 mg] 25 mg PO HS 03/06/22 [History] Travel Risk - International Travel Have you traveled outside of the country in past 3 weeks: No - Coronavirus Screening Are you exhibiting any of the following symptoms?: No Close contact with a COVID-19 positive Pt in past 14-21 Days: No - Vaccine Status Have you recieved a Covid-19 vaccination: Yes Manager Documentation: Unknown - Vaccination Dates Dates if Unknown: unk <HEIKE RUBIO - Last Filed: 07/29/22 05:46> - Review of Systems Constitutional: No Fever, No Chills Eyes: No Symptoms Ears, Nose, & Throat: No Symptoms Respiratory: No Cough, No Dyspnea Cardiac: No Chest Pain, No Edema, No Syncope Abdominal/Gastrointestinal: Abdominal Pain, Constipation (For 9 days), No Nausea, No Vomiting, No Diarrhea Genitourinary Symptoms: No Dysuria Musculoskeletal: No Back Pain, No Neck Pain Skin: No Rash Neurological: No Dizziness, No Focal Weakness, No Sensory Changes Psychological: No Symptoms Endocrine: No Symptoms All Other Systems: Reviewed and Negative <HEIKE RUBIO - Last Filed: 07/29/22 05:46> - Past Medical History Pertinent Past Medical History: Yes Neurological History: Peripheral Neuropathy ENT History: No Pertinent History Cardiac History: Hypertension Respiratory History: COPD Endocrine Medical History: Diabetes Type II Musculoskeletal History: Osteoarthritis GI Medical History: No Pertinent History History: No Pertinent History Psycho-Social History: Depression Female Reproductive Disorders: No Pertinent History Other Medical History: SMOKER - Past Surgical History Past Surgical History: Yes Neuro Surgical History: No Pertinent History Cardiac: No Pertinent History, Cardiac Catheterization, Cardiac Stent Respiratory: No Pertinent History Gastrointestinal: Cholecystectomy Genitourinary: No Pertinent History Musculoskeletal: Orthopedic Surgery Female Surgical History: Section, Tubal Ligation Other Surgical History: hand surgery removal of for obj - Social History Smoking Status: Current every day smoker How long have you smoked: 27 YRS Exposure to second hand smoke: Yes Drug Use: marijuana Patient Lives Alone: No <HEIKE RUBIO - Last Filed: 07/29/22 05:46> - Physical Exam General Appearance: no apparent distress, alert Eye Exam: PERRL/EOMI Ears, Nose, Throat Exam: normal ENT inspection, moist mucous membranes Neck Exam: normal inspection, supple Respiratory Exam: normal breath sounds, lungs clear, No respiratory distress Cardiovascular Exam: regular rate/rhythm, normal heart sounds, normal peripheral pulses Gastrointestinal/Abdomen Exam: soft, tenderness (In the upper abdominal region.), other (Decreased bowel sounds can be heard.), No mass Back Exam: normal inspection, normal range of motion, No CVA tenderness, No vertebral tenderness Extremity Exam: normal inspection, normal range of motion, pelvis stable Neurologic Exam: alert, oriented x 3, cooperative, normal mood/affect, nml cerebellar function, nml station & gait, sensation nml, No motor deficits Skin Exam: normal color, warm, dry, No rash Lymphatic Exam: No adenopathy SpO2: 97 <HEIKE RUBIO - Last Filed: 07/29/22 05:46> - Nursing Vital Signs Nursing Vital Signs: Initial Vital Signs Pulse Rate 84 07/29/22 05:25 Respiratory Rate 16 07/29/22 05:25 Blood Pressure 156/88 07/29/22 05:25 O2 Sat by Pulse Oximetry 96 07/29/22 05:25 Pain Scale Pain Intensity 4 - CT Exams Abdomen/Pelvis CT Interpretation: Tele-radiologist Report (CT scan reveals a left adrenal gland nodule that needs MRI follow-up. Degenerative changes of the lumbar spine that may benefit from MRI as well. Lung hamartoma) <LINCOLN PRINCE - Last Filed: 07/29/22 09:39> Ordered Tests: Active Orders 24 hr Category Date Time Status EKG-ER Only STAT Care 07/29/22 05:45 Active ABDOMEN AND PELVIS W/0 CONTRAS [CT] Stat Exams 07/29/22 05:44 Completed CBC W DIFF Stat Lab 07/29/22 06:27 Completed CMP Stat Lab 07/29/22 06:27 Completed TROPONIN Q4H Lab 07/29/22 06:27 Completed TROPONIN Q4H Lab 07/29/22 09:45 Ordered TROPONIN Q4H Lab 07/29/22 13:45 Ordered TROPONIN Q4H Lab 07/29/22 17:45 Ordered TROPONIN Q4H Lab 07/29/22 21:45 Ordered Lab/Rad Data: Laboratory Result Diagrams 07/29/22 06:27 07/29/22 06:27 Laboratory Results 07/29/22 07/29/22 07/29/22 Range/Units 06:27 06:27 06:27 WBC 7.3 (4.0-10.5) x10^3/uL RBC 5.28 (4.1-5.4) x10^6/uL Hgb 14.9 (12.0-16.0) g/dL Hct 45.9 (35-47) % MCV 86.9 (78-100) fL MCH 28.2 (26-32) pg MCHC 32.5 (32-36) g/dL RDW 12.5 (11.5-14.0) % Plt Count 254 (150-450) x10^3/uL MPV 10.2 (7.5-11.0) fL Gran % 59.3 (36.0-66.0) % Immature Gran % (Auto) 0.1 (0.00-0.4) % Nucleat RBC Rel Count 0.0 (0.00-0.1) % Eos # (Auto) 0.16 (0-0.5) x10^3/uL Immature Gran # (Auto) 0.01 (0.00-0.03) x10^3u/L Absolute Lymphs (auto) 1.88 (1.0-4.6) x10^3/uL Absolute Monos (auto) 0.84 (0.0-1.3) x10^3/uL Absolute Nucleated RBC 0.00 (0.00-0.01) x10^3u/L Lymphocytes % 25.8 (24.0-44.0) % Monocytes % 11.5 (0.0-12.0) % Eosinophils % 2.2 (0.00-5.0) % Basophils % 1.1 (0.0-0.4) % Absolute Granulocytes 4.31 (1.4-6.9) x10^3/uL Basophils # 0.08 (0-0.4) x10^3/uL Sodium 139 (137-145) mmol/L Potassium 3.8 (3.5-5.1) mmol/L Chloride 102 (98-107) mmol/L Carbon Dioxide 27 (22-30) mmol/L Anion Gap 13.5 (5-15) MEQ/L BUN 10 (7-17) mg/dL Creatinine 0.58 (0.52-1.04) mg/dL Estimated GFR > 60.0 ML/MIN Glucose 95 (74-106) mg/dL Calcium 10.0 (8.4-10.2) mg/dL Total Bilirubin 0.70 (0.2-1.3) mg/dL AST 26 (14-36) U/L ALT 24 (0-35) U/L Alkaline Phosphatase 64 (38-126) U/L Troponin I < 0.012 (0.000-0.034) ng/mL Serum Total Protein 7.4 (6.3-8.2) g/dL Albumin 4.2 (3.5-5.0) g/dL - Progress Progress: improved <LINCOLN PRINCE - Last Filed: 07/29/22 09:39> - Progress Progress Note: Age gender, PMH/PQ , (co-morbidities that complicate presentation) , med class, PSH, (smoker) method of arrival, CC (acute, chronic or acute on chronic), State COPA level and why or if critical. vitals, Significant ROS/PE findings, working diagnoses, Complexity of problem addressed is low acute uncomplicated. Complexity of data reviewed and analyzed is low. Test ordered test reviewed. Patient served as a independent historian. No outside documentation reviewed. No outside consultation/treatment recommendations obtained. Risk of complication and or risk morbidity/mortality patient management is low. Patient agrees to follow-up with primary care doctor within 40 hours for reevaluation. Portions of this note were created with voice recognition technology. There may be grammatical, spelling, punctuation or sound alike errors 07/29/22 09:34 (LINCOLN PRINCE) <HEIKE RUBIO - Last Filed: 07/29/22 05:46> - Departure Departure Disposition: Home Critical Care Time: No <LINCOLN PRINCE - Last Filed: 07/29/22 09:39> - Departure Clinical Impression: Abdominal pain, Adrenal mass, Lumbar spine degenerative changes Condition: Stable Referrals: KRIS LAMB, [Primary Care Provider] - Follow up/PCP as directed Additional Instructions: Please follow-up with your primary care physician within 48 hours for reevaluation. You will require a MRI to further assess a left adrenal gland nodule observed on today's CAT scan. Additionally you may benefit from an MRI to further evaluate degenerative changes observed in your lumbar spine following today's CAT scan. Discharge/Care Plan BRAN FRASER was seen on 07/29/22 in the Emergency Room. The patient was counseled regarding Diagnosis,Lab results, Imaging studies, need for follow up and when to return to the Emergency Room. Prescriptions given: Discharge Note I have spoken with the patient and/or caregivers. I have explained the patient's condition, diagnosis and treatment plan based on the information available to me at this time. I have answered the patient's and/or caregiver's questions and addressed any concerns. The patient and/or caregivers have as good understanding of the patient's diagnosis, condition and treatment plan as can be expected at this point. The vital signs have been stable. The patient's condition is stable and appropriate for discharge from the emergency department. The patient will pursue further outpatient evaluation with the primary care physician or other designated or consulting physician as outlined in the discharge instructions. The patient and/or caregivers are agreeable to this plan of care and follow-up instructions have been explained in detail. The patient and/or caregivers have received these instruction. The patient/and or caregivers are aware that any significant change in condition or worsening of symptoms should prompt an immediate return to this or the closest emergency department or call 911.
[2022-07-29 06:27] LABS: Absolute Neutrophil Ct (ANC) 4.31 x10^3/uL (1.4-6.9); BASOPHIL % 1.1 % (0.0-0.4); Basophil (Absolute #) 0.08 x10^3/uL (0-0.4); Eosinophil % 2.2 % (0.00-5.0); Eosinophil (Absolute #) 0.16 x10^3/uL (0-0.5); Hematocrit 45.9 % (35-47); Hemoglobin 14.9 g/dL (12.0-16.0); IMMATURE GRAN # 0.01 x10^3u/L (0.00-0.03); IMMATURE GRAN % 0.1 % (0.00-0.4); Lymphocyte (Absolute #) 1.88 x10^3/uL (1.0-4.6); Lymphocytes % 25.8 % (24.0-44.0); Mean Cell Volume 86.9 fL (78-100); Mean Corpuscular Hemoglobin 28.2 pg (26-32); Mean Corpuscular Hgb Concent. 32.5 g/dL (32-36); Mean Platelet Volume 10.2 fL (7.5-11.0); Monocyte (Absolute #) 0.84 x10^3/uL (0.0-1.3); Monocytes % 11.5 % (0.0-12.0); Neutrophil % 59.3 % (36.0-66.0); Platelet Count 254 x10^3/uL (150-450); Red Blood Count 5.28 x10^6/uL (4.1-5.4); Red Cell Distribution Width 12.5 % (11.5-14.0); White Blood Count 7.3 x10^3/uL (4.0-10.5)
[2022-07-29 06:43] LABS: ALBUMIN 4.2 g/dL (3.5-5.0); ALKALINE PHOSPHATASE 64 U/L (38-126); ANION GAP 13.5 MEQ/L (5-15); BLOOD UREA NITROGEN 10 mg/dL (7-17); CHLORIDE 102 mmol/L (98-107); Carbon Dioxide 27 mmol/L (22-30); Creatinine 1 0.58 mg/dL (0.52-1.04); EST GLOMERULAR FILTRATION RATE > 60.0 ML/MIN; Glucose 95 mg/dL (74-106); Potassium 3.8 mmol/L (3.5-5.1); SGOT/AST 26 U/L (14-36); SGPT/ALT 24 U/L (0-35); SODIUM 139 mmol/L (137-145); Total Protein 7.4 g/dL (6.3-8.2)
--- NOTE | 2022-07-29 08:54 | XRAY ---
CLINICAL HISTORY:Epigastric pain; COMPARISON:X-ray abdomen 07/27/2022 reviewed; TECHNIQUES:CT of the abdomen and pelvis was performed with axial images as well as sagittal and coronal reconstruction images without intravenous contrast. CTDI: 6.06, DLP: 260.36; PATIENT WEIGHT: 117 LBS; FINDINGS: The liver is normal in size, morphology and position. The liver appears unremarkable with no intrahepatic or extrahepatic bile duct dilation. Gallbladder Is not visualized, metallic clips noted in the GB fossa representing cholecystectomy. Unremarkable appearing pancreas. No pancreatic mass or ductal dilatation is seen. Unremarkable appearing spleen. Oval-shaped nodule measures 1.8 x1.3 cm noted in the left adrenal gland needs further evaluation with MRI. The right adrenal gland is normal. No abdominal wall pathology is seen. The kidneys appear normal in size. No cysts, calculus ,masses or hydronephrosis. The ureters are normal with no stones. Bladder is unremarkable with no stones. The stomach is partially collapsed and appears grossly unremarkable. Unremarkable appearing duodenum. Small Bowel and colon are non-distended with no abnormality. Appendix is visualized and appears grossly unremarkable ,no evidence of periappendiceal fat stranding. No free air and no ascites. No free intraperitoneal air is seen. Degenerative changes noted in the visualized bones with disc herniations/disc osteophyte complex at L1-L2 level with discal calcification and L5-S1 disc osteophyte complex causing bilateral neural foramen narrowing ,would recommend MRI lumbar spine for further evaluation. The visualized lung bases show rounded well-defined soft tissue density area measuring 1.2x 1.1 x 0.9 cm with smooth margins and internal central tiny calcification focus suggesting benign findinghamartoma. Patchy subtle groundglass is noted in the basal segments likely nonspecific. IMPRESSION: Oval-shaped nodule measures 1.8 x1.3 cm noted in the left adrenal gland needs further evaluation with MRI. Disc herniations/disc osteophyte complexes at L1-L2 and L5-S1 levels causing bilateral neural foramen narrowing , This may explain patient's symptoms ,clinical correlation is advised, would recommend MRI lumbar spine for further evaluation. No other significant abnormality identified. Electronically Signed by: Sammie French MD. (07/29/2022 07:48:46 GLAZING SUPERINTENDENT)
[2022-07-29 09:18] VITALS: BP 160/70; PULSE 70; O2SAT 97
== END 2022-07-29 10:15 | disposition home or self-care (01) ==
LOC: ED 05:05
DX: R10.13 Epigastric pain (principal); E27.8 Other specified disorders of adrenal gland; M47.816 Spondylosis without myelopathy or radiculopathy, lumbar region; K59.00 Constipation, unspecified; I10 Essential (primary) hypertension; J44.9 Chronic obstructive pulmonary disease, unspecified; E11.42 Type 2 diabetes mellitus with diabetic polyneuropathy; Z79.84 Long term (current) use of oral hypoglycemic drugs; Z79.899 Other long term (current) drug therapy; Z99.81 Dependence on supplemental oxygen; Z72.0 Tobacco use
CPT/HCPCS: 36000; 36415; 74176; 80053; 84484; 85025; 93005; 99284

== ENCOUNTER 2023-01-25 06:55 | Observation (INO) | payer OTHER ==
--- NOTE | 2023-01-25 07:16 | ERPHSYRPT ---
- History of Present Illness Allergies/Adverse Reactions: meperidine [From Demerol] Allergy (Intermediate, Verified 07/29/22 05:25) Hives Penicillins Allergy (Intermediate, Verified 07/29/22 05:25) Swelling of Tongue and Lips morphine Adverse Reaction (Severe, Verified 07/29/22 05:25) Swelling of Tongue and Lips burning, no rash Home Medications: Duloxetine HCl [Cymbalta] 60 mg PO DAILY 09/24/15 [History] Metformin HCl 500 mg [Glucophage 500 MG] 1,000 mg PO BID 09/24/15 [History] Buspirone HCl 7.5 mg PO BID 03/09/19 [History] Gabapentin 300 mg PO BID 03/09/19 [History] Cyclobenzaprine HCl 10 mg [Cyclobenzaprine 10 MG] 10 mg PO BID 01/14/21 [History] Isosorbide Mononitrate 60 mg [Imdur 60MG] 60 mg PO DAILY 01/14/21 [History] Ziprasidone 20 mg [Geodon 20 MG Capsule] 20 mg PO BID 07/23/21 [History] Trazodone HCl 50 mg [Desyrel 50 mg] 25 mg PO HS 03/06/22 [History] Hx Tetanus, Diphtheria Vaccination/Date Given: Yes Hx Influenza Vaccination/Date Given: Yes Hx Pneumococcal Vaccination/Date Given: No Travel Risk - Vaccine Status Have you recieved a Covid-19 vaccination: Yes Corporate Compliance Officer: Unknown - Vaccination Dates Dates if Unknown: unk - Review of Systems Constitutional: No Symptoms, No Fever, No Chills Eyes: No Symptoms Ears, Nose, & Throat: No Symptoms Respiratory: No Symptoms, No Cough, No Dyspnea Cardiac: No Symptoms, No Chest Pain, No Edema, No Syncope Abdominal/Gastrointestinal: No Symptoms, No Abdominal Pain, No Nausea, No Vomiting, No Diarrhea Genitourinary Symptoms: No Symptoms, No Dysuria Musculoskeletal: No Symptoms, No Back Pain, No Neck Pain Skin: No Symptoms, No Rash Neurological: No Symptoms, No Dizziness, No Focal Weakness, No Sensory Changes Psychological: No Symptoms Endocrine: No Symptoms Hematologic/Lymphatic: No Symptoms Immunological/Allergic: No Symptoms All Other Systems: Reviewed and Negative - Past Medical History Pertinent Past Medical History: Yes Neurological History: Peripheral Neuropathy ENT History: No Pertinent History Cardiac History: Hypertension Respiratory History: COPD Endocrine Medical History: Diabetes Type II Musculoskeletal History: Osteoarthritis GI Medical History: No Pertinent History History: No Pertinent History Psycho-Social History: Depression Female Reproductive Disorders: No Pertinent History Other Medical History: SMOKER - Past Surgical History Past Surgical History: Yes Neuro Surgical History: No Pertinent History Cardiac: No Pertinent History, Cardiac Catheterization, Cardiac Stent Respiratory: No Pertinent History Gastrointestinal: Cholecystectomy Genitourinary: No Pertinent History Musculoskeletal: Orthopedic Surgery Female Surgical History: Section, Tubal Ligation Other Surgical History: hand surgery removal of for obj - Social History Smoking Status: Current every day smoker How long have you smoked: 27 YRS Exposure to second hand smoke: Yes Drug Use: marijuana Patient Lives Alone: No - Departure Referrals: BALDEV CRUZ [Primary Care Provider] - Follow up/PCP as directed
[2023-01-25] MEDS ORDERED: DUONEB 0.5-3 MG/3 ml Neb IH ONE (07:26)
--- NOTE | 2023-01-25 07:27 | ERPHSYRPT ---
- History of Present Illness Time Seen by Provider: 01/25/23 07:10 Source: patient Exam Limitations: no limitations Patient Subjective Stated Complaint: Pt states that she has had a sore throat for a few days and nw she feels lightheaded and like her heart is racing since about 0530 Triage Nursing Assessment: Pt brought self to the ER, vitals wnl, denies pain, oxygen was 98% and it dropped to 85% so I placed her on 3LNC, coarse lungs, pulses normal, skin n/w/d, pt is falling asleep while being triaged Physician History: Patient is a 52-year-old female history of COPD current smoker presents to our ED for evaluation of sore throat and shortness of breath. Upon arrival to our ED patient was observed to be hypoxic. Patient's oxygen saturation on the monitor was in the high 80s. No chest pain. No nausea vomiting or diaphoresis. Symptoms are moderate in intensity. No specific worsening or improving factors. Patient states her symptoms are associated with lightheadedness. Patient appears to be sleepy during triage. Patient easily arousable. Patient voices no other complaints or concerns otherwise. Portions of this note were created with voice recognition technology. There may be grammatical, spelling, punctuation or sound alike errors Timing/Duration: day(s) (2 days) Activities at Onset: none Severity of Dyspnea-Max: moderate Severity of Dyspnea-Current: mild Possible Cause: occasional episodes Modifying Factors: Improves With: nothing Associated Symptoms: lightheadedness Allergies/Adverse Reactions: meperidine [From Demerol] Allergy (Intermediate, Verified 01/25/23 07:19) Hives Penicillins Allergy (Intermediate, Verified 01/25/23 07:19) Swelling of Tongue and Lips morphine Adverse Reaction (Severe, Verified 01/25/23 07:19) Swelling of Tongue and Lips burning, no rash Home Medications: Duloxetine HCl [Cymbalta] 60 mg PO DAILY 09/24/15 [History] Metformin HCl 500 mg [Glucophage 500 MG] 1,000 mg PO BID 09/24/15 [History] Buspirone HCl 7.5 mg PO BID 03/09/19 [History] Gabapentin 300 mg PO BID 03/09/19 [History] Cyclobenzaprine HCl 10 mg [Cyclobenzaprine 10 MG] 10 mg PO BID 01/14/21 [History] Isosorbide Mononitrate 60 mg [Imdur 60MG] 60 mg PO DAILY 01/14/21 [History] Ziprasidone 20 mg [Geodon 20 MG Capsule] 20 mg PO BID 07/23/21 [History] Trazodone HCl 50 mg [Desyrel 50 mg] 25 mg PO HS 03/06/22 [History] Buprenorphine [Butrans] 15 mcg TOP WEEKLY 01/25/23 [History] Lisinopril 10 mg [Zestril 10 MG] 10 mg PO DAILY 01/25/23 [History] Pramipexole Di-HCl 0.5 mg [Mirapex 0.5 MG Tablet] 0.5 mg PO TID 01/25/23 [History] Pregabalin [Lyrica 100Mg] 100 mg PO BID 01/25/23 [History] Ziprasidone HCl [Geodon] 40 mg PO DAILY 01/25/23 [History] terbinafine HCL [Terbinafine HCl] 250 mg PO DAILY 01/25/23 [History] Hx Tetanus, Diphtheria Vaccination/Date Given: Yes Hx Influenza Vaccination/Date Given: Yes Hx Pneumococcal Vaccination/Date Given: No Travel Risk - International Travel Have you traveled outside of the country in past 3 weeks: No - Coronavirus Screening Are you exhibiting any of the following symptoms?: No - Vaccine Status Have you recieved a Covid-19 vaccination: Yes Client Retention Specialist: Unknown - Vaccination Dates Dates if Unknown: unk - Review of Systems Constitutional: No Symptoms, No Fever, No Chills Eyes: No Symptoms Ears, Nose, & Throat: No Symptoms Respiratory: No Symptoms, No Cough, No Dyspnea Cardiac: No Symptoms, No Chest Pain, No Edema, No Syncope Abdominal/Gastrointestinal: No Symptoms, No Abdominal Pain, No Nausea, No Vomiting, No Diarrhea Genitourinary Symptoms: No Symptoms, No Dysuria Musculoskeletal: No Symptoms, No Back Pain, No Neck Pain Skin: No Symptoms, No Rash Neurological: No Symptoms, No Dizziness, No Focal Weakness, No Sensory Changes Psychological: No Symptoms Endocrine: No Symptoms Hematologic/Lymphatic: No Symptoms Immunological/Allergic: No Symptoms All Other Systems: Reviewed and Negative - Past Medical History Pertinent Past Medical History: Yes Neurological History: Peripheral Neuropathy ENT History: No Pertinent History Cardiac History: Hypertension Respiratory History: COPD Endocrine Medical History: Diabetes Type II Musculoskeletal History: Osteoarthritis GI Medical History: No Pertinent History History: No Pertinent History Psycho-Social History: Depression Female Reproductive Disorders: No Pertinent History Other Medical History: SMOKER - Past Surgical History Past Surgical History: Yes Neuro Surgical History: No Pertinent History Cardiac: No Pertinent History, Cardiac Catheterization, Cardiac Stent Respiratory: No Pertinent History Gastrointestinal: Cholecystectomy Genitourinary: No Pertinent History Musculoskeletal: Orthopedic Surgery Female Surgical History: Section, Tubal Ligation Other Surgical History: hand surgery removal of for obj - Social History Smoking Status: Current every day smoker How long have you smoked: 27 YRS Exposure to second hand smoke: Yes Drug Use: marijuana Patient Lives Alone: No - Nursing Vital Signs Nursing Vital Signs: Initial Vital Signs Temperature 96.5 F 01/25/23 07:08 Pulse Rate 84 01/25/23 07:08 Blood Pressure 109/71 01/25/23 07:08 O2 Sat by Pulse Oximetry 98 01/25/23 07:08 Pain Scale Pain Intensity 0 - Physical Exam General Appearance: no apparent distress, alert Eye Exam: PERRL/EOMI Ears, Nose, Throat Exam: hearing grossly normal, normal ENT inspection, normal pharynx Neck Exam: normal inspection, supple Respiratory Exam: airway intact, diminished breath sounds, rhonchi Cardiovascular/Chest Exam: normal heart sounds, regular rate/rhythm Abdominal/Gastrointestinal Exam: soft, No tenderness, No distention, No mass Extremity Exam: non-tender, normal range of motion, normal inspection, no calf tenderness, no pedal edema Neurologic Exam: alert, oriented x 3, cooperative, pricing consultant II-XII nml as tested, sensation nml, No motor deficits Skin Exam: normal color, warm, No dry Lymphatic Exam: No adenopathy SpO2 Interpretation: normal SpO2: 90 O2 Delivery: Room Air - Course Nursing assessment & vital signs reviewed: Yes EKG Interpreted by Me: RATE (73), Sinus Rhythm, NORMAL AXIS, NORMAL INTERVALS - Radiology Exams Chest X-ray Interpretation: Interpreted by me (No acute findings) Ordered Tests: Active Orders 24 hr Category Date Time Status Manager Special Events STAT Care 01/25/23 07:17 Active EKG-ER Only STAT Care 01/25/23 07:16 Active IV Insertion STAT Care 01/25/23 07:16 Active Pulse Oximetry (ED) STAT Care 01/25/23 07:16 Active CHEST 1 VIEW (PORTABLE) Stat Exams 01/25/23 08:26 Completed BLOOD CULTURE Stat Lab 01/25/23 07:45 Received CBC W DIFF Stat Lab 01/25/23 07:35 Completed CMP Stat Lab 01/25/23 07:35 Completed D-DIMER QUANTITATIVE Stat Lab 01/25/23 07:35 Completed NT PRO BNPII Stat Lab 01/25/23 07:35 Completed TROPONIN Q4H Lab 01/25/23 07:35 Completed TROPONIN Q4H Lab 01/25/23 11:30 Ordered TROPONIN Q4H Lab 01/25/23 15:30 Ordered Respiratory Therapy Assessment DAILY RT 01/25/23 07:31 Completed Transfer Order Routine Transfer 01/25/23 Ordered Medication Summary Generic Name Dose Route Start Last Admin Trade Name Freq PRN Reason Stop Dose Admin Doxycycline Hyclate 100 mg/ 100 mls @ 100 mls/hr 01/25/23 10:00 01/25/23 09:28 Dextrose IV 02/24/23 09:59 100 mls/hr Q12HT KALIE Administration Discontinued Medications Generic Name Dose Route Start Last Admin Trade Name Freq PRN Reason Stop Dose Admin Albuterol/Ipratropium 3 ml 01/25/23 07:19 01/25/23 07:28 Ipratropium/Albuterol Sulfate 3 Ml Ampul.Neb IH 01/25/23 07:20 3 ml STAT ONE Administration Albuterol/Ipratropium Confirm 01/25/23 07:26 Ipratropium/Albuterol Sulfate 3 Ml Ampul.Neb Administered 01/25/23 07:27 Dose 3 ml IH .STK-MED ONE Methylprednisolone Sodium 0 mg 01/25/23 07:19 01/25/23 07:34 Succinate 125 mg/ Sterile IV 01/25/23 07:20 125 mg Water 2 ml STAT ONE Administration Doxycycline Hyclate Confirm 01/25/23 09:25 Doxycycline Hyclate 100 Mg/Vial Injection Administered 01/25/23 09:26 Dose 100 mg IV .STK-MED ONE Dextrose Confirm 01/25/23 09:26 Dextrose 5%/Water Iv Soln. 100ml Plus Bag Administered 01/25/23 09:27 Dose 100 mls @ ud IV .STK-MED ONE Methylprednisolone Sodium Succinate Confirm 01/25/23 07:31 Methylprednis Sod Succ 125 Mg/2 Ml Vial Administered 01/25/23 07:32 Dose 125 mg .ROUTE .STK-MED ONE Sterile Water Confirm 01/25/23 07:31 Water For Injection,Sterile 10 Ml Vial Administered 01/25/23 07:32 Dose 10 ml IJ .STK-MED ONE Lab/Rad Data: Laboratory Result Diagrams 01/25/23 07:35 01/25/23 07:35 Laboratory Results 01/25/23 01/25/23 01/25/23 Range/Units 07:50 07:35 07:35 WBC (4.0-10.5) x10^3/uL RBC (4.1-5.4) x10^6/uL Hgb (12.0-16.0) g/dL Hct (35-47) % MCV (78-100) fL MCH (26-32) pg MCHC (32-36) g/dL RDW (11.5-14.0) % Plt Count (150-450) x10^3/uL MPV (7.5-11.0) fL Gran % (36.0-66.0) % Immature Gran % (Auto) (0.00-0.4) % Nucleat RBC Rel Count (0.00-0.1) % Eos # (Auto) (0-0.5) x10^3/uL Immature Gran # (Auto) (0.00-0.03) x10^3u/L Absolute Lymphs (auto) (1.0-4.6) x10^3/uL Absolute Monos (auto) (0.0-1.3) x10^3/uL Absolute Nucleated RBC (0.00-0.01) x10^3u/L Lymphocytes % (24.0-44.0) % Monocytes % (0.0-12.0) % Eosinophils % (0.00-5.0) % Basophils % (0.0-0.4) % Absolute Granulocytes (1.4-6.9) x10^3/uL Basophils # (0-0.4) x10^3/uL D-Dimer 0.42 (0.0-0.50) mg/L Sodium (137-145) mmol/L Potassium (3.5-5.1) mmol/L Chloride (98-107) mmol/L Carbon Dioxide (22-30) mmol/L Anion Gap (5-15) MEQ/L BUN (7-17) mg/dL Creatinine (0.52-1.04) mg/dL Estimated GFR ML/MIN Glucose (74-106) mg/dL Calcium (8.4-10.2) mg/dL Total Bilirubin (0.2-1.3) mg/dL AST (14-36) U/L ALT (0-35) U/L Alkaline Phosphatase (38-126) U/L Troponin I < 0.012 (0.000-0.034) ng/mL NT-Pro-B Natriuret Pep (<300) pg/mL Serum Total Protein (6.3-8.2) g/dL Albumin (3.5-5.0) g/dL Influenza Type A Ag NEGATIVE (NEGATIVE) Influenza Type B Ag NEGATIVE (NEGATIVE) RSV (PCR) NEGATIVE (NEGATIVE) SARS-CoV-2 (PCR) NEGATIVE (NEGATIVE) 01/25/23 01/25/23 Range/Units 07:35 07:35 WBC 5.9 (4.0-10.5) x10^3/uL RBC 4.31 (4.1-5.4) x10^6/uL Hgb 12.2 (12.0-16.0) g/dL Hct 37.9 (35-47) % MCV 87.9 (78-100) fL MCH 28.3 (26-32) pg MCHC 32.2 (32-36) g/dL RDW 12.9 (11.5-14.0) % Plt Count 262 (150-450) x10^3/uL MPV 10.0 (7.5-11.0) fL Gran % 49.5 (36.0-66.0) % Immature Gran % (Auto) 0.5 H (0.00-0.4) % Nucleat RBC Rel Count 0.0 (0.00-0.1) % Eos # (Auto) 0.28 (0-0.5) x10^3/uL Immature Gran # (Auto) 0.03 (0.00-0.03) x10^3u/L Absolute Lymphs (auto) 2.03 (1.0-4.6) x10^3/uL Absolute Monos (auto) 0.60 (0.0-1.3) x10^3/uL Absolute Nucleated RBC 0.00 (0.00-0.01) x10^3u/L Lymphocytes % 34.3 (24.0-44.0) % Monocytes % 10.2 (0.0-12.0) % Eosinophils % 4.7 (0.00-5.0) % Basophils % 0.8 (0.0-0.4) % Absolute Granulocytes 2.92 (1.4-6.9) x10^3/uL Basophils # 0.05 (0-0.4) x10^3/uL D-Dimer (0.0-0.50) mg/L Sodium 139 (137-145) mmol/L Potassium 3.9 (3.5-5.1) mmol/L Chloride 103 (98-107) mmol/L Carbon Dioxide 29 (22-30) mmol/L Anion Gap 10.6 (5-15) MEQ/L BUN 8 (7-17) mg/dL Creatinine 0.63 (0.52-1.04) mg/dL Estimated GFR 108.0 ML/MIN Glucose 110 H (74-106) mg/dL Calcium 8.9 (8.4-10.2) mg/dL Total Bilirubin 0.20 (0.2-1.3) mg/dL AST 23 (14-36) U/L ALT 20 (0-35) U/L Alkaline Phosphatase 64 (38-126) U/L Troponin I (0.000-0.034) ng/mL NT-Pro-B Natriuret Pep 56.5 (<300) pg/mL Serum Total Protein 6.3 (6.3-8.2) g/dL Albumin 3.7 (3.5-5.0) g/dL Influenza Type A Ag (NEGATIVE) Influenza Type B Ag (NEGATIVE) RSV (PCR) (NEGATIVE) SARS-CoV-2 (PCR) (NEGATIVE) - Progress Progress: improved Air Movement: good Progress Note: Patient is a 52-year-old female history of COPD diabetes current smoker presents to our ED for evaluation of sore throat shortness of breath. Physical exam shows patient is sleepy. Patient was hypoxic upon arrival. On physical exam patient's lungs are very coarse decreased breath sounds. EKG reveals normal sinus rhythm. Chest x-ray essentially unchanged from previous. Blood cultures obtained. CBC CMP essentially nonremarkable. COVID RSV flu negative. BNP within normal limits. Initial troponin negative. Patient received albuterol nebulizer treatments. Solu-Medrol 125 administered. Doxycycline administered as well. Patient reassessed. Patient is comfortable. Patient currently saturating 95% on 3 L nasal cannula. Patient has improved since her arrival however she is not ready to be discharged. Patient will require observation for continuous management. Case discussed with Dr. Owens at 10:10 AM. accepts admission. Plan of care discussed with patient. She agrees to admission to [facility] for further evaluation and treatment. Portions of this note were created with voice recognition technology. There may be grammatical, spelling, punctuation or sound alike errors Complexity of problems addressed is moderate acute complicated No critical care time Complex of data reviewed and analyzed is extensive. Test ordered test reviewed. Results analyzed and correlated clinically with history and physical examination. Management discussed with hospitalist who accepts admission at 10:10 AM. Risk of complication and or risk of morbidity/mortality of patient management is high. Patient requires hospitalization for further evaluation and treatment. Patient received nebulizer treatment to address hypoxia and shortness of breath Vitals currently stable. Time spent admit patient is approximately 15 minutes. Plan of care established for shared decision making. No social determinants of health present impede follow-up Portions of this note were created with voice recognition technology. There may be grammatical, spelling, punctuation or sound alike errors 01/25/23 10:15 Blood Culture(s) Obtained: Yes Antibiotics given: Yes Discussed with Dr.: Other (Roman) Will see patient in: hospital (observation) - Departure Departure Disposition: Observation Clinical Impression: COPD exacerbation, Hypoxia Condition: Stable Critical Care Time: No Referrals: BALDEV CRUZ [Primary Care Provider] - Follow up/PCP as directed Instructions: Chronic Obstructive Pulmonary Disease
[2023-01-25] MEDS: DUONEB 0.5-3 MG/3 ml Neb IH ONE (07:28)
[2023-01-25] MEDS ORDERED: Sterile H2O 10 ml IJ ONE (07:31)
[2023-01-25] MEDS ORDERED: solu-MEDROL ONE (07:31)
[2023-01-25] MEDS: solu-MEDROL 125 MG, Sterile H2O 10 ml 2 ML IV ONE ×2 (07:34)
[2023-01-25 07:56] LABS: Absolute Neutrophil Ct (ANC) 2.92 x10^3/uL (1.4-6.9); BASOPHIL % 0.8 % (0.0-0.4); Basophil (Absolute #) 0.05 x10^3/uL (0-0.4); Eosinophil % 4.7 % (0.00-5.0); Eosinophil (Absolute #) 0.28 x10^3/uL (0-0.5); Hematocrit 37.9 % (35-47); Hemoglobin 12.2 g/dL (12.0-16.0); IMMATURE GRAN # 0.03 x10^3u/L (0.00-0.03); IMMATURE GRAN % 0.5 % (0.00-0.4); Lymphocyte (Absolute #) 2.03 x10^3/uL (1.0-4.6); Lymphocytes % 34.3 % (24.0-44.0); Mean Cell Volume 87.9 fL (78-100); Mean Corpuscular Hemoglobin 28.3 pg (26-32); Mean Corpuscular Hgb Concent. 32.2 g/dL (32-36); Monocytes % 10.2 % (0.0-12.0); Neutrophil % 49.5 % (36.0-66.0); Platelet Count 262 x10^3/uL (150-450); Red Blood Count 4.31 x10^6/uL (4.1-5.4); Red Cell Distribution Width 12.9 % (11.5-14.0); White Blood Count 5.9 x10^3/uL (4.0-10.5)
[2023-01-25 08:16] LABS: ALBUMIN 3.7 g/dL (3.5-5.0); ANION GAP 10.6 MEQ/L (5-15); BILIRUBIN,TOTAL 0.2 mg/dL (0.2-1.3); Calcium 8.9 mg/dL (8.4-10.2); Creatinine 1 0.63 mg/dL (0.52-1.04); NT PRO BNPII 56.5 pg/mL (<300); Potassium 3.9 mmol/L (3.5-5.1); Total Protein 6.3 g/dL (6.3-8.2)
[2023-01-25 08:49] LABS: INFLUENZA A NEGATIVE (NEGATIVE); INFLUENZA B NEGATIVE (NEGATIVE); RESPIRATORY SYNCTIAL VIRUS NEGATIVE (NEGATIVE); SARS-CoV-2 Xpert Express NEGATIVE (NEGATIVE)
--- NOTE | 2023-01-25 09:17 | XRAY ---
Indication: Short of breath. Comparison: December 15, 2022 Portable chest again demonstrates normal heart and lungs with incidental left lower lobe calcified granuloma. Bony thorax intact again with mild degenerative changes. No new/acute findings.
[2023-01-25] MEDS ORDERED: VIBRAMYCIN 100 MG IV ONE (09:25)
[2023-01-25] MEDS ORDERED: Dextrose 5%/Water IV Soln. 100ML PLUS BAG 100 ML IV ONE (09:26)
[2023-01-25] MEDS: VIBRAMYCIN 100 MG*** 100 MG in Dextrose 5%/Water IV Soln. 100ML PLUS BAG 100 ML IV SCH (09:28)
[2023-01-25 10:35] VITALS: BP 162/85; PULSE 81; RESP 16; TEMP 98.3; O2SAT 95
--- NOTE | 2023-02-15 20:57 | PCM.DS ---
Discharge Summary Date of Admission: 01/25/23 10:23 Admitting Physician: MERCEDES CORONADO MD Primary Care Provider: BALDEV CRUZ Allergies Allergies meperidine [From Demerol] Allergy (Intermediate, Verified 01/25/23 07:19) Hives Penicillins Allergy (Intermediate, Verified 01/25/23 07:19) Swelling of Tongue and Lips morphine Adverse Reaction (Severe, Verified 01/25/23 07:19) Swelling of Tongue and Lips burning, no rash Hospital Summary - Hospital Course Hospital Course: This patient was accepted as an admission from ER but left AMA before she was seen. There was no history or physical exam since the patient left AMA. - Vitals & Intake/Output Vital Signs: Vital Signs Temperature 98.3 F 01/25/23 10:52 Pulse Rate 81 01/25/23 10:52 Respiratory Rate 16 01/25/23 10:52 Blood Pressure 162/85 01/25/23 10:52 O2 Sat by Pulse Oximetry 95 01/25/23 10:52 - Lab Result Diagrams: 01/25/23 07:35 01/25/23 07:35 Micro Results-Entire Visit: Microbiology 01/25/23 07:45 Blood Culture - Final Blood 01/25/23 07:40 Blood Culture - Final Blood - Procedures and Test Procedures and Tests throughout Hospitalization: Therapy Orders & Screens 01/25/23 07:31 Respiratory Therapy Assessment DAILY Comment: Telemedicine Encounter - Telemedicine Encounter Telemedicine Encounter: The entirety of this encounter was performed via Telemedicine" - Discharge Disposition: Against Medical Advice Condition: Stable Prescriptions: No Action Duloxetine HCl [Cymbalta] 60 mg PO DAILY Ziprasidone 20 mg [Geodon 20 MG Capsule] 20 mg PO DAILY Trazodone HCl 50 mg [Desyrel 50 mg] 150 mg PO HS terbinafine HCL [Terbinafine HCl] 250 mg PO DAILY Ziprasidone HCl [Geodon] 40 mg PO DAILY Lisinopril 10 mg [Zestril 10 MG] 10 mg PO DAILY Pregabalin [Lyrica 100Mg] 100 mg PO BID Pramipexole Di-HCl 0.5 mg [Mirapex 0.5 MG Tablet] 0.5 mg PO TID Buprenorphine [Butrans] 15 mcg TOP WEEKLY Aspirin 81 gm Chew [Baby Aspirin 81 mg Chew] 81 mg PO DAILY Albuterol Sulfate [Albuterol Sulfate Hfa] 2 inhaler Q6H hydroCHLOROthiazide [Hydrochlorothiazide] 12.5 mg PO DAILY Atorvastatin Calcium 20 mg PO DAILY Follow up with: BALDEV CRUZ [Primary Care Provider] -
== END 2023-01-25 12:05 | disposition left against medical advice (07) ==
LOC: ED 06:55 → MED SURG 10:23
PROVIDERS: ADMIT Internal Medicine; ATTEND Internal Medicine
DX: R05.9 Cough, unspecified (principal); R09.02 Hypoxemia; I10 Essential (primary) hypertension; E11.9 Type 2 diabetes mellitus without complications; F17.200 Nicotine dependence, unspecified, uncomplicated; Z79.899 Other long term (current) drug therapy; Z20.828 Contact with and (suspected) exposure to other viral communicable diseases
CPT/HCPCS: 0241U; 36000; 36415; 71045; 80053; 83880; 84484; 85025; 85379; 87040; 93005; 93041; 93268; 94640; 94760; 96365; 96374; 99285; G0378; J2930; A9270-GY

== ENCOUNTER 2023-02-19 09:10 | Emergency (ER) | payer OTHER ==
[2023-02-19 09:24] VITALS: TEMP 97.2
--- NOTE | 2023-02-19 09:28 | ERPHSYRPT ---
- History of Present Illness Time Seen by Provider: 02/19/23 09:27 Source: patient Exam Limitations: no limitations Patient Subjective Stated Complaint: Pt states "I have had cough and congestion for the past four days." Triage Nursing Assessment: Pt presented alert and oriented X 3, skin pwd. Pt ambulates with an upright steady gait, able to speak in clear full sentences. Pt has intermittnt productive cough. Physician History: This is a 52-year-old white female patient of Dr. Bentley Cruz and presents to the emergency department with symptoms of coughing and wheezing intermittently for 4 days. Patient is a smoker of cigarettes but states she has not smoked in the last 4 days because of her symptoms. Patient has history of asthma/COPD and has albuterol inhalers and nebulizers at home. Patient denies chest pain. She denies shortness of breath. She denies abdominal pain. She has had no nausea vomiting or diarrhea symptoms. Patient states she can take hydrocodone without any problems. Patient has a history of diabetes, asthma/COPD, hypertension, peripheral neuropathy, osteoarthritis, cardiac stents/coronary artery disease, hyperlipidemia and depression. Patient drove herself into the hospital today. Timing/Duration: day(s) (4) Cough Quality/Degree: moderate, dry cough Possible Cause: occasional episodes Associated Symptoms: cough, nasal congestion, wheezing, No fever, No chills, No chest pain/soreness, No headache, No muscle aches, No shortness of breath, No sore throat Allergies/Adverse Reactions: meperidine [From Demerol] Allergy (Intermediate, Verified 01/25/23 07:19) Hives Penicillins Allergy (Intermediate, Verified 01/25/23 07:19) Swelling of Tongue and Lips morphine Adverse Reaction (Severe, Verified 01/25/23 07:19) Swelling of Tongue and Lips burning, no rash Home Medications: Duloxetine HCl [Cymbalta] 60 mg PO DAILY 09/24/15 [History] Ziprasidone 20 mg [Geodon 20 MG Capsule] 20 mg PO DAILY 07/23/21 [History] Albuterol Sulfate [Albuterol Sulfate Hfa] 2 inhaler Q6H 01/25/23 [History] Aspirin 81 gm Chew [Baby Aspirin 81 mg Chew] 81 mg PO DAILY 01/25/23 [History] Atorvastatin Calcium 20 mg PO DAILY 01/25/23 [History] Lisinopril 10 mg [Zestril 10 MG] 10 mg PO DAILY 01/25/23 [History] Pramipexole Di-HCl 0.5 mg [Mirapex 0.5 MG Tablet] 0.5 mg PO TID 01/25/23 [History] Pregabalin [Lyrica 100Mg] 100 mg PO BID 01/25/23 [History] Ziprasidone HCl [Geodon] 40 mg PO DAILY 01/25/23 [History] hydroCHLOROthiazide [Hydrochlorothiazide] 12.5 mg PO DAILY 01/25/23 [History] terbinafine HCL [Terbinafine HCl] 250 mg PO DAILY 01/25/23 [History] Cyclobenzaprine HCl 10 mg [Cyclobenzaprine 10 MG] 10 mg PO BID 02/19/23 [History] Metformin HCl 500 mg [Glucophage 500 MG] 500 mg PO TID 02/19/23 [History] terbinafine HCL [Terbinafine HCl] 1 ea DAILY 02/19/23 [History] Hx Tetanus, Diphtheria Vaccination/Date Given: No Hx Influenza Vaccination/Date Given: Yes Hx Pneumococcal Vaccination/Date Given: No Immunizations Up to Date: No Travel Risk - International Travel Have you traveled outside of the country in past 3 weeks: No - Coronavirus Screening Are you exhibiting any of the following symptoms?: Yes Symptoms: Cough: New Onset, Headaches/Body Aches/Fatigue - Vaccine Status Have you recieved a Covid-19 vaccination: Yes 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 - Vaccination Dates Dates if Unknown: UNKNOWN - Review of Systems Constitutional: No Symptoms Eyes: No Symptoms Ears, Nose, & Throat: No Symptoms Respiratory: Cough, Wheezing Cardiac: No Symptoms Abdominal/Gastrointestinal: No Symptoms Genitourinary Symptoms: No Symptoms Musculoskeletal: No Symptoms Skin: No Symptoms Neurological: No Symptoms Psychological: No Symptoms Endocrine: No Symptoms Hematologic/Lymphatic: No Symptoms Immunological/Allergic: No Symptoms All Other Systems: Reviewed and Negative - Past Medical History Pertinent Past Medical History: Yes Neurological History: Peripheral Neuropathy ENT History: No Pertinent History Cardiac History: Hypertension, Myocardial Infarction (DC) Respiratory History: COPD Endocrine Medical History: Diabetes Type II Musculoskeletal History: Osteoarthritis GI Medical History: No Pertinent History History: No Pertinent History Psycho-Social History: Depression Female Reproductive Disorders: No Pertinent History Other Medical History: DC IN 2018. HX OF SUICIDE ATTEMPTS X 2 WITH MEDICATION OVERDOSE LAST ATTEMPT 2000 - Past Surgical History Past Surgical History: Yes Neuro Surgical History: No Pertinent History Cardiac: No Pertinent History, Cardiac Catheterization, Cardiac Stent Respiratory: No Pertinent History Gastrointestinal: Cholecystectomy Genitourinary: No Pertinent History Musculoskeletal: Orthopedic Surgery Female Surgical History: Section, Tubal Ligation Other Surgical History: hand surgery , BACK SUGERY - Social History Smoking Status: Current every day smoker How long have you smoked: 27 YRS Exposure to second hand smoke: Yes Drug Use: marijuana Patient Lives Alone: No - Nursing Vital Signs Nursing Vital Signs: Initial Vital Signs Temperature 97.2 F 02/19/23 09:20 Pulse Rate 99 H 02/19/23 09:20 Respiratory Rate 24 02/19/23 09:20 Blood Pressure 112/97 02/19/23 09:20 O2 Sat by Pulse Oximetry 94 L 02/19/23 09:20 Pain Scale Pain Intensity 0 - Physical Exam General Appearance: no apparent distress, alert Eye Exam: PERRL/EOMI, eyes nml inspection Ears, Nose, Throat Exam: normal ENT inspection, moist mucous membranes Neck Exam: normal inspection, non-tender, supple, full range of motion Respiratory Exam: airway intact, wheezing (Bilateral expiratory wheezes), No chest tenderness, No respiratory distress Cardiovascular Exam: regular rate/rhythm, normal heart sounds, normal peripheral pulses Gastrointestinal/Abdomen Exam: soft, normal bowel sounds, No tenderness Pelvic Exam: not done Rectal Exam: not done Back Exam: normal inspection, normal range of motion, No CVA tenderness, No vertebral tenderness Extremity Exam: normal inspection, normal range of motion, pelvis stable Neurologic Exam: alert, oriented x 3, cooperative, director of publications II-XII nml as tested, normal mood/affect, nml cerebellar function, nml station & gait, sensation nml Skin Exam: normal color, warm, dry Lymphatic Exam: No adenopathy SpO2 Interpretation: borderline oxygenation SpO2: 93 O2 Delivery: Room Air - Course Nursing assessment & vital signs reviewed: Yes Ordered Tests: Active Orders 24 hr Category Date Time Status CHEST 1 VIEW (PORTABLE) Stat Exams 02/19/23 10:05 Taken Respiratory Therapy Assessment DAILY RT 02/19/23 09:44 Active Medication Summary Generic Name Dose Route Start Last Admin Trade Name Chiquita PRN Reason Stop Dose Admin Levofloxacin 500 mg 02/19/23 10:36 Levofloxacin 500 Mg Tablet PO 02/19/23 10:37 STAT ONE Discontinued Medications Generic Name Dose Route Start Last Admin Trade Name Chiquita PRN Reason Stop Dose Admin Albuterol/Ipratropium 3 ml 02/19/23 09:44 02/19/23 09:58 Ipratropium/Albuterol Sulfate 3 Ml Ampul.Neb IH 02/19/23 09:45 3 ml STAT ONE Administration Albuterol/Ipratropium Confirm 02/19/23 09:46 Ipratropium/Albuterol Sulfate 3 Ml Ampul.Neb Administered 02/19/23 09:47 Dose 3 ml IH .STK-MED ONE Methylprednisolone Sodium 0 mg 02/19/23 09:34 02/19/23 09:56 Succinate 125 mg/ Sterile IM 02/19/23 09:35 125 mg Water 2 ml STAT ONE Administration Methylprednisolone Sodium Succinate Confirm 02/19/23 09:53 Methylprednis Sod Succ 125 Mg/2 Ml Vial Administered 02/19/23 09:54 Dose 125 mg .ROUTE .STK-MED ONE Sterile Water Confirm 02/19/23 09:53 Water For Injection,Sterile 10 Ml Vial Administered 02/19/23 09:54 Dose 10 ml IJ .STK-MED ONE Lab/Rad Data: Laboratory Results 02/19/23 Range/Units 09:50 Influenza Type A Ag NEGATIVE (NEGATIVE) Influenza Type B Ag NEGATIVE (NEGATIVE) RSV (PCR) NEGATIVE (NEGATIVE) SARS-CoV-2 (PCR) NEGATIVE (NEGATIVE) - Progress Progress: improved, re-examined Air Movement: good Progress Note: 02/19/23 09:42 This patient's medical issue is 1 of low to moderate complexity. Level complex in the workup performed is based on review the patient's past medical history, review the patient's medication list, reviewed patient's drug allergy list, history of present illness and physical findings on examination. Workup in this patient includes respiratory therapy evaluation and providing nebulizer treatment, intramuscular Solu-Medrol, chest x-ray, viral swabs and group A strep swab. 02/19/23 10:38 I interpreted the laboratory results. There is no evidence of any acute, emergent medical findings. Chest x-ray was interpreted by me. Patient has bibasilar opacities versus atelectasis. Blood Culture(s) Obtained: No Antibiotics given: No Counseled pt/family regarding: lab results, diagnosis, need for follow-up, rad results Medical Desision Making - Diagnostic Testing Diagnostic test were ordered, analyzed, and reviewed by me: Yes - Risk of complications The pt has a mod risk of morbidity or mortality based on: Need for prescription drug management - Departure Departure Disposition: Home Clinical Impression: Respiratory infection Condition: Stable Critical Care Time: No Referrals: BALDEV CRUZ [Primary Care Provider] - Follow up/PCP as directed Additional Instructions: Drink plenty of fluids. Avoid exposure to any type of smoke. Give yourself your nebulizer treatments at home every 4 hours while you are awake for the next 48 hours. Take your medications as prescribed. Monitor your blood sugar levels while taking the steroids. Prescriptions: Prednisone 10 mg [Deltasone 10 mg] 10 mg PO TID #12 tablet Hydrocodone/Acetaminophen [Hydrocodone-Acetamn 7.5-325/15] 10 ml PO Q8H PRN #120 ml MDD 30 ml PRN Reason: Cough Azithromycin 250 mg [Zithromax 250 MG TABLET] 250 mg PO ZPACK #6 tablet
[2023-02-19] MEDS ORDERED: solu-MEDROL 125 MG, Sterile H2O 10 ml 2 ML IM ONE ×2 (09:34)
[2023-02-19] MEDS ORDERED: DUONEB 0.5-3 MG/3 ml Neb IH ONE ×2 (09:44→09:46)
[2023-02-19] MEDS ORDERED: solu-MEDROL ONE (09:53)
[2023-02-19] MEDS ORDERED: Sterile H2O 10 ml IJ ONE (09:53)
[2023-02-19 10:02] VITALS: RESP 16
[2023-02-19 10:28] LABS: INFLUENZA A NEGATIVE (NEGATIVE); INFLUENZA B NEGATIVE (NEGATIVE); RESPIRATORY SYNCTIAL VIRUS NEGATIVE (NEGATIVE); SARS-CoV-2 Xpert Express NEGATIVE (NEGATIVE)
[2023-02-19 10:36] VITALS: BP 124/87; PULSE 93
[2023-02-19] MEDS ORDERED: Levofloxacin 500 MG Tablet PO ONE (10:36)
[2023-02-19 10:39] VITALS: O2SAT 93
[2023-02-19] MEDS ORDERED: Levofloxacin 500 MG Tablet ONE (10:41)
--- NOTE | 2023-02-19 21:06 | XRAY ---
Indication: Wheezing. Cough. Comparison: January 25, 2023 Portable chest remains clear again with incidental small left base calcified granuloma. Heart not enlarged. Bony thorax intact again with mild degenerative changes. No new/acute findings.
== END 2023-02-19 10:53 | disposition home or self-care (01) ==
LOC: ED 09:10
DX: J98.8 Other specified respiratory disorders (principal); J44.9 Chronic obstructive pulmonary disease, unspecified; R05.1 Acute cough; E11.42 Type 2 diabetes mellitus with diabetic polyneuropathy; I10 Essential (primary) hypertension; E78.5 Hyperlipidemia, unspecified; Z79.52 Long term (current) use of systemic steroids; Z79.891 Long term (current) use of opiate analgesic; Z79.84 Long term (current) use of oral hypoglycemic drugs; Z79.899 Other long term (current) drug therapy; Z72.0 Tobacco use
CPT/HCPCS: 0241U; 71045; 94640; 96372; 99283; J2930; A9270-GY

== ENCOUNTER 2023-04-13 09:18 | Emergency (ER) | payer OTHER ==
[2023-04-13 09:46] VITALS: TEMP 96.4
[2023-04-13] MEDS ORDERED: TYLENOL 325 MG PO ONE (09:55)
--- NOTE | 2023-04-13 09:56 | ERPHSYRPT ---
- History of Present Illness Time Seen by Provider: 04/13/23 09:51 Exam Limitations: no limitations Patient Subjective Stated Complaint: pt states high blood pressure yesterday and today Triage Nursing Assessment: pt ambulated into the er; pt is axo x4; c/o HTN; blood pressure normal at 121/74; c/o headach; dry hacking cough present; coarse lung sounds in rt lobe; skin PDW; no respiratory distress; vitals wnl Physician History: Patient is a 52-year-old female presents to the emergency department for evaluation of headache and dizziness. Patient states she checked her blood pressure this morning it was elevated. Patient called her primary care doctor who advised her to come to our ED. Upon arrival her blood pressure checked out normal. Patient states she is still dizzy and experiencing a headache. No trauma no fever. Symptoms started today. No associated chest pain or shortness of breath. No blurred vision. Patient voices no other complaints or concerns at this time. Portions of this note were created with voice recognition technology. There may be grammatical, spelling, punctuation or sound alike errors Timing/Duration: today Severity: moderate Modifying Factors: Improves With: nothing Allergies/Adverse Reactions: meperidine [From Demerol] Allergy (Intermediate, Verified 04/13/23 09:36) Hives morphine Adverse Reaction (Severe, Verified 04/13/23 09:36) Swelling of Tongue and Lips burning, no rash Home Medications: Duloxetine HCl [Cymbalta] 60 mg PO DAILY 09/24/15 [History] Ziprasidone 20 mg [Geodon 20 MG Capsule] 20 mg PO DAILY 07/23/21 [History] Albuterol Sulfate [Albuterol Sulfate Hfa] 2 inhaler Q6H 01/25/23 [History] Aspirin 81 gm Chew [Baby Aspirin 81 mg Chew] 81 mg PO DAILY 01/25/23 [History] Atorvastatin Calcium 20 mg PO DAILY 01/25/23 [History] Lisinopril 10 mg [Zestril 10 MG] 10 mg PO DAILY 01/25/23 [History] Pramipexole Di-HCl 0.5 mg [Mirapex 0.5 MG Tablet] 0.5 mg PO TID 01/25/23 [History] Pregabalin [Lyrica 100Mg] 100 mg PO BID 01/25/23 [History] Ziprasidone HCl [Geodon] 40 mg PO DAILY 01/25/23 [History] hydroCHLOROthiazide [Hydrochlorothiazide] 12.5 mg PO DAILY 01/25/23 [History] terbinafine HCL [Terbinafine HCl] 250 mg PO DAILY 01/25/23 [History] Cyclobenzaprine HCl 10 mg [Cyclobenzaprine 10 MG] 10 mg PO BID 02/19/23 [History] Metformin HCl 500 mg [Glucophage 500 MG] 500 mg PO TID 02/19/23 [History] terbinafine HCL [Terbinafine HCl] 1 ea DAILY 02/19/23 [History] Hx Tetanus, Diphtheria Vaccination/Date Given: No (unsure) Hx Influenza Vaccination/Date Given: Yes Hx Pneumococcal Vaccination/Date Given: No Travel Risk - International Travel Have you traveled outside of the country in past 3 weeks: No - Coronavirus Screening Are you exhibiting any of the following symptoms?: Yes Symptoms: Cough: New Onset Close contact with a COVID-19 positive Pt in past 14-21 Days: No - Vaccine Status Have you recieved a Covid-19 vaccination: Yes 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 - Vaccination Dates Dates if Unknown: UNKNOWN - Review of Systems Constitutional: No Symptoms, No Fever, No Chills Eyes: No Symptoms Ears, Nose, & Throat: No Symptoms Respiratory: No Symptoms, No Cough, No Dyspnea Cardiac: No Symptoms, No Chest Pain, No Edema, No Syncope Abdominal/Gastrointestinal: No Symptoms, No Abdominal Pain, No Nausea, No Vom iting, No Diarrhea Genitourinary Symptoms: No Symptoms, No Dysuria Musculoskeletal: No Symptoms, No Back Pain, No Neck Pain Skin: No Symptoms, No Rash Neurological: No Symptoms, No Dizziness, No Focal Weakness, No Sensory Changes Psychological: No Symptoms Endocrine: No Symptoms Hematologic/Lymphatic: No Symptoms Immunological/Allergic: No Symptoms All Other Systems: Reviewed and Negative - Past Medical History Pertinent Past Medical History: Yes Neurological History: Peripheral Neuropathy ENT History: No Pertinent History Cardiac History: Hypertension, Myocardial Infarction ([place]) Respiratory History: COPD Endocrine Medical History: Diabetes Type II Musculoskeletal History: Osteoarthritis GI Medical History: No Pertinent History History: No Pertinent History Psycho-Social History: Depression Female Reproductive Disorders: No Pertinent History Other Medical History: MS IN 2018. HX OF SUICIDE ATTEMPTS X 2 WITH MEDICATION OVERDOSE LAST ATTEMPT 2000 - Past Surgical History Past Surgical History: Yes Neuro Surgical History: No Pertinent History Cardiac: No Pertinent History, Cardiac Catheterization, Cardiac Stent Respiratory: No Pertinent History Gastrointestinal: Cholecystectomy Genitourinary: No Pertinent History Musculoskeletal: Orthopedic Surgery Female Surgical History: Section, Tubal Ligation Other Surgical History: hand surgery , BACK SUGERY - Social History Smoking Status: Current every day smoker How long have you smoked: 27 YRS Exposure to second hand smoke: Yes Drug Use: marijuana Patient Lives Alone: No - Nursing Vital Signs Nursing Vital Signs: Initial Vital Signs Pulse Rate 83 04/13/23 09:30 Respiratory Rate 13 04/13/23 09:30 Blood Pressure 116/74 04/13/23 09:30 O2 Sat by Pulse Oximetry 94 L 04/13/23 09:30 Pain Scale Pain Intensity 4 - Physical Exam General Appearance: no apparent distress, alert Eye Exam: PERRL/EOMI, eyes nml inspection Ears, Nose, Throat Exam: normal ENT inspection, TMs normal, pharynx normal, moist mucous membranes Neck Exam: normal inspection, non-tender, supple, full range of motion Respiratory Exam: normal breath sounds, lungs clear, No respiratory distress Cardiovascular Exam: regular rate/rhythm, normal heart sounds, normal peripheral pulses Gastrointestinal/Abdomen Exam: soft, normal bowel sounds, No tenderness, No mass Back Exam: normal inspection, normal range of motion, No CVA tenderness, No vertebral tenderness Extremity Exam: normal inspection, normal range of motion, pelvis stable Neurologic Exam: alert, oriented x 3, cooperative, normal mood/affect, nml cerebellar function, nml station & gait, sensation nml, No motor deficits Skin Exam: normal color, warm, dry, No rash Lymphatic Exam: No adenopathy SpO2 Interpretation: normal SpO2: 99 O2 Delivery: Room Air - Course Nursing assessment & vital signs reviewed: Yes EKG Interpreted by Me: RATE (81), Sinus Rhythm, NORMAL AXIS, NORMAL INTERVALS - CT Exams Head CT Interpretation: Tele-radiologist Report (Continued normal CT head without contrast) Ordered Tests: Active Orders 24 hr Category Date Time Status Ice Cream Maker STAT Care 04/13/23 09:50 Active EKG-ER Only STAT Care 04/13/23 09:49 Active IV Insertion STAT Care 04/13/23 09:49 Active HEAD WITHOUT CONTRAST [CT] Stat Exams 04/13/23 09:50 Completed CBC W DIFF Stat Lab 04/13/23 10:05 Completed CMP Stat Lab 04/13/23 10:05 Completed TROPONIN Q4H Lab 04/13/23 10:05 Completed TROPONIN Q4H Lab 04/13/23 14:00 Ordered TROPONIN Q4H Lab 04/13/23 18:00 Ordered Medication Summary Generic Name Dose Route Start Last Admin Trade Name Freq PRN Reason Stop Dose Admin Sodium Chloride 1,000 mls @ 50 mls/hr 04/13/23 10:00 04/13/23 10:10 Sodium Chloride 0.9% 1000 Ml IV 05/13/23 09:59 50 mls/hr .Q20H KALIE Administration Discontinued Medications Generic Name Dose Route Start Last Admin Trade Name Freq PRN Reason Stop Dose Admin Acetaminophen 975 mg 04/13/23 09:55 04/13/23 10:10 Acetaminophen 325 Mg Tablet PO 04/13/23 09:56 975 mg STAT ONE Administration Acetaminophen Confirm 04/13/23 10:01 Acetaminophen 325 Mg Tablet Administered 04/13/23 10:02 Dose 975 mg .ROUTE .STK-MED ONE Aspirin 324 mg 04/13/23 11:02 04/13/23 11:08 Aspirin 81 Mg Tab.Chew PO 04/13/23 11:03 324 mg STAT ONE Administration Aspirin Confirm 04/13/23 11:07 Aspirin 81 Mg Tab.Chew Administered 04/13/23 11:08 Dose 324 mg .ROUTE .STK-MED ONE Lab/Rad Data: Laboratory Result Diagrams 04/13/23 10:05 04/13/23 10:05 Laboratory Results 04/13/23 04/13/23 04/13/23 Range/Units 10:05 10:05 10:05 WBC 7.7 (4.0-10.5) x10^3/uL RBC 4.76 (4.1-5.4) x10^6/uL Hgb 13.5 (12.0-16.0) g/dL Hct 41.2 (35-47) % MCV 86.6 (78-100) fL MCH 28.4 (26-32) pg MCHC 32.8 (32-36) g/dL RDW 12.5 (11.5-14.0) % Plt Count 263 (150-450) x10^3/uL MPV 9.3 (7.5-11.0) fL Gran % 67.9 H (36.0-66.0) % Immature Gran % (Auto) 0.5 H (0.00-0.4) % Nucleat RBC Rel Count 0.0 (0.00-0.1) % Eos # (Auto) 0.23 (0-0.5) x10^3/uL Immature Gran # (Auto) 0.04 H (0.00-0.03) x10^3u/L Absolute Lymphs (auto) 1.54 (1.0-4.6) x10^3/uL Absolute Monos (auto) 0.60 (0.0-1.3) x10^3/uL Absolute Nucleated RBC 0.00 (0.00-0.01) x10^3u/L Lymphocytes % 20.1 L (24.0-44.0) % Monocytes % 7.8 (0.0-12.0) % Eosinophils % 3.0 (0.00-5.0) % Basophils % 0.7 (0.0-0.4) % Absolute Granulocytes 5.22 (1.4-6.9) x10^3/uL Basophils # 0.05 (0-0.4) x10^3/uL Sodium 136 L (137-145) mmol/L Potassium 3.4 L (3.5-5.1) mmol/L Chloride 102 (98-107) mmol/L Carbon Dioxide 28 (22-30) mmol/L Anion Gap 10.1 (5-15) MEQ/L BUN 15 (7-17) mg/dL Creatinine 0.72 (0.52-1.04) mg/dL Estimated GFR 101.8 ML/MIN Glucose 118 H (74-106) mg/dL Calcium 9.7 (8.4-10.2) mg/dL Total Bilirubin 0.30 (0.2-1.3) mg/dL AST 26 (14-36) U/L ALT 22 (0-35) U/L Alkaline Phosphatase 50 (38-126) U/L Troponin I < 0.012 (0.000-0.034) ng/mL Serum Total Protein 7.1 (6.3-8.2) g/dL Albumin 4.1 (3.5-5.0) g/dL - Progress Progress: improved Progress Note: 04/13/23 11:40 Patient reassessed. Symptoms resolved. Headache resolved dizziness resolved. CT head negative for acute intracranial pathology. Teleneuro consultation suggested that patient's headache and likely dizziness is due to a benign etiology. Patient voices that she has a known urinary tract infection. Patient's primary care provider forwarded a prescription to the pharmacy. Patient will pick it up immediately after leaving our ED. Teleneurologist suggested that her symptoms may be possibly related to a underlying urinary tract infection. Noted patient further workup at this time. Will discharge home. Patient received Tylenol for headache. Aspirin administered as we were initially suspecting possible posterior circulation involvement. IV fluids adm inistered. Portions of this note were created with voice recognition technology. There may be grammatical, spelling, punctuation or sound alike errors Complexity problem addressed is moderate acute complicated No critical care time Complex of data reviewed and analyzed extensive. Test ordered test reviewed. Results analyzed and correlated clinically with history and physical examination . Management discussed with specialist/neurologist. Risk complication and a risk morbidity/mortality of patient management is low. Vital stable. Time spent to discharge patient approximately 30minutes. Plan of care established for shared decision making. No social determinants of health present impede follow-up. 04/13/23 11:44 Counseled pt/family regarding: lab results, diagnosis, need for follow-up, rad results - Departure Departure Disposition: Home Clinical Impression: Headache, Dizziness Condition: Stable Critical Care Time: No Referrals: BALDEV CRUZ [Primary Care Provider] - Follow up/PCP as directed Instructions: Headache, Adult ED, Dizziness, Adult ED Additional Instructions: Discharge/Care Plan BRIABRAN MÁRQUEZ was seen on 04/13/23 in the Emergency Room. The patient was counseled regarding Diagnosis,Lab results, Imaging studies, need for follow up and when to return to the Emergency Room. Prescriptions given: Discharge Note I have spoken with the patient and/or caregivers. I have explained the patient's condition, diagnosis and treatment plan based on the information available to me at this time. I have answered the patient's and/or caregiver's questions and addressed any concerns. The patient and/or caregivers have as good understanding of the patient's diagnosis, condition and treatment plan as can be expected at this point. The vital signs have been stable. The patient's condition is stable and appropriate for discharge from the emergency department. The patient will pursue further outpatient evaluation with the primary care physician or other designated or consulting physician as outlined in the discha rge instructions. The patient and/or caregivers are agreeable to this plan of care and follow-up instructions have been explained in detail. The patient and/or caregivers have received these instruction. The patient/and or caregivers are aware that any significant change in condition or worsening of symptoms should prompt an immediate return to this or the closest emergency department or call 911.
[2023-04-13] MEDS ORDERED: Sodium Chloride 0.9% 1000 ML 1,000 ML IV SCH (10:00)
[2023-04-13] MEDS ORDERED: Sodium Chloride 0.9% 1000 ML 1,000 ML ONE (10:01)
[2023-04-13] MEDS ORDERED: TYLENOL 325 MG ONE (10:01)
[2023-04-13 10:12] LABS: Absolute Neutrophil Ct (ANC) 5.22 x10^3/uL (1.4-6.9); BASOPHIL % 0.7 % (0.0-0.4); Basophil (Absolute #) 0.05 x10^3/uL (0-0.4); Eosinophil (Absolute #) 0.23 x10^3/uL (0-0.5); Hematocrit 41.2 % (35-47); Hemoglobin 13.5 g/dL (12.0-16.0); IMMATURE GRAN # 0.04 x10^3u/L (0.00-0.03); IMMATURE GRAN % 0.5 % (0.00-0.4); Lymphocyte (Absolute #) 1.54 x10^3/uL (1.0-4.6); Lymphocytes % 20.1 % (24.0-44.0); Mean Cell Volume 86.6 fL (78-100); Mean Corpuscular Hemoglobin 28.4 pg (26-32); Mean Corpuscular Hgb Concent. 32.8 g/dL (32-36); Mean Platelet Volume 9.3 fL (7.5-11.0); Monocytes % 7.8 % (0.0-12.0); Neutrophil % 67.9 % (36.0-66.0); Platelet Count 263 x10^3/uL (150-450); Red Blood Count 4.76 x10^6/uL (4.1-5.4); Red Cell Distribution Width 12.5 % (11.5-14.0); White Blood Count 7.7 x10^3/uL (4.0-10.5)
[2023-04-13 10:26] LABS: ALBUMIN 4.1 g/dL (3.5-5.0); ANION GAP 10.1 MEQ/L (5-15); BILIRUBIN,TOTAL 0.3 mg/dL (0.2-1.3); Calcium 9.7 mg/dL (8.4-10.2); Creatinine 1 0.72 mg/dL (0.52-1.04); EST GLOMERULAR FILTRATION RATE 101.8 ML/MIN; Potassium 3.4 mmol/L (3.5-5.1); Total Protein 7.1 g/dL (6.3-8.2)
--- NOTE | 2023-04-13 10:33 | XRAY ---
Indication: Headache. High blood pressure. Multiple contiguous axial images obtained through the head without contrast. Comparison: February 21, 2015 Normal appearing brain parenchyma, ventricles, and bony calvarium. Visualized paranasal sinuses and mastoid air cells are clear. Impression: Continued normal CT head without contrast exam.
[2023-04-13] MEDS ORDERED: BABY ASPIRIN 81 MG CHEW PO ONE (11:02)
[2023-04-13 11:06] VITALS: PULSE 76; RESP 15
[2023-04-13] MEDS ORDERED: BABY ASPIRIN 81 MG CHEW ONE (11:07)
[2023-04-13 11:38] VITALS: BP 134/83
[2023-04-13 11:45] VITALS: O2SAT 99
== END 2023-04-13 11:49 | disposition home or self-care (01) ==
LOC: ED 09:18
DX: R51.9 Headache, unspecified (principal); R42 Dizziness and giddiness; I10 Essential (primary) hypertension; E11.42 Type 2 diabetes mellitus with diabetic polyneuropathy; Z79.84 Long term (current) use of oral hypoglycemic drugs; Z79.899 Other long term (current) drug therapy; Z72.0 Tobacco use
CPT/HCPCS: 36000; 36415; 70450; 80053; 84484; 85025; 93005; 93041; 99284; A9270-GY

== ENCOUNTER 2023-05-11 08:09 | Emergency (ER) | payer OTHER ==
[2023-05-11 08:18] VITALS: BP 122/67; RESP 20; TEMP 97.4; O2SAT 98
--- NOTE | 2023-05-11 08:56 | XRAY ---
Indication: Pain and burning. Diabetes. Comparison: None 3 view right great toe demonstrates mild medial IP joint degenerative spurring with focal soft tissue swelling. No other bony, articular, or soft tissue abnormalities.
[2023-05-11 09:14] VITALS: PULSE 80
--- NOTE | 2023-05-11 09:30 | ERPHSYRPT ---
- History of Present Illness Time Seen by Provider: 05/11/23 09:24 Source: patient Exam Limitations: no limitations Patient Subjective Stated Complaint: Pt states "My right toe hurts around the toe nail." Triage Nursing Assessment: Pt presnted alert and oriented X 3, skin wpd. Pt ambulates with an upright steady gait, ableto speak in clear full sentences. PT right great toe no redness noted. Physician History: 52 years old female with history of diabetes mellitus presented in the ER with chief complaint of right big toe nail pain for the last few days. Patient reports it hurts to walk with shoes on and better with out shoes. Patient denies any redness of big toe. Denies any fall or trauma. No difficulty ambulation otherwise. Blood sugar well-controlled per patient. Allergies/Adverse Reactions: meperidine [From Demerol] Allergy (Intermediate, Verified 04/13/23 09:36) Hives morphine Adverse Reaction (Severe, Verified 04/13/23 09:36) Swelling of Tongue and Lips burning, no rash Home Medications: Duloxetine HCl [Cymbalta] 60 mg PO DAILY 09/24/15 [History] Ziprasidone 20 mg [Geodon 20 MG Capsule] 20 mg PO DAILY 07/23/21 [History] Albuterol Sulfate [Albuterol Sulfate Hfa] 2 inhaler Q6H 01/25/23 [History] Aspirin 81 gm Chew [Baby Aspirin 81 mg Chew] 81 mg PO DAILY 01/25/23 [History] Atorvastatin Calcium 20 mg PO DAILY 01/25/23 [History] Lisinopril 10 mg [Zestril 10 MG] 10 mg PO DAILY 01/25/23 [History] Pramipexole Di-HCl 0.5 mg [Mirapex 0.5 MG Tablet] 0.5 mg PO TID 01/25/23 [History] Ziprasidone HCl [Geodon] 40 mg PO DAILY 01/25/23 [History] hydroCHLOROthiazide [Hydrochlorothiazide] 12.5 mg PO DAILY 01/25/23 [History] terbinafine HCL [Terbinafine HCl] 250 mg PO DAILY 01/25/23 [History] Cyclobenzaprine HCl 10 mg [Cyclobenzaprine 10 MG] 10 mg PO BID 02/19/23 [History] Metformin HCl 500 mg [Glucophage 500 MG] 500 mg PO TID 02/19/23 [History] terbinafine HCL [Terbinafine HCl] 1 ea DAILY 02/19/23 [History] Buprenorphine [Butrans] 1 patch TOP WEEKLY 04/13/23 [History] Trazodone HCl 100 mg PO HS 04/13/23 [History] Hx Tetanus, Diphtheria Vaccination/Date Given: No (unsure) Hx Influenza Vaccination/Date Given: No Hx Pneumococcal Vaccination/Date Given: No Immunizations Up to Date: No Travel Risk - International Travel Have you traveled outside of the country in past 3 weeks: No - Coronavirus Screening Are you exhibiting any of the following symptoms?: No Close contact with a COVID-19 positive Pt in past 14-21 Days: No - Vaccine Status Have you recieved a Covid-19 vaccination: No Director Of Campus Recreation: Unknown - Vaccination Dates Dates if Unknown: UNKNOWN - Review of Systems Constitutional: No Symptoms Eyes: No Symptoms Respiratory: No Symptoms Cardiac: No Symptoms Abdominal/Gastrointestinal: No Symptoms Skin: No Symptoms Neurological: No Symptoms Endocrine: No Symptoms Hematologic/Lymphatic: No Symptoms - Past Medical History Pertinent Past Medical History: Yes Neurological History: Peripheral Neuropathy ENT History: No Pertinent History Cardiac History: Hypertension, Myocardial Infarction ([place]) Respiratory History: COPD Endocrine Medical History: Diabetes Type II Musculoskeletal History: Osteoarthritis GI Medical History: No Pertinent History History: No Pertinent History Psycho-Social History: Depression Female Reproductive Disorders: No Pertinent History Other Medical History: [place] IN 2018. HX OF SUICIDE ATTEMPTS X 2 WITH MEDICATION OVERDOSE LAST ATTEMPT 2000 - Past Surgical History Past Surgical History: Yes Neuro Surgical History: No Pertinent History Cardiac: No Pertinent History, Cardiac Catheterization, Cardiac Stent Respiratory: No Pertinent History Gastrointestinal: Cholecystectomy Genitourinary: No Pertinent History Musculoskeletal: Orthopedic Surgery Female Surgical History: Section, Tubal Ligation Other Surgical History: hand surgery , BACK SUGERY - Social History Smoking Status: Current every day smoker How long have you smoked: 27 YRS Exposure to second hand smoke: Yes Drug Use: marijuana Patient Lives Alone: No - Nursing Vital Signs Nursing Vital Signs: Initial Vital Signs Temperature 97.4 F 05/11/23 08:15 Pulse Rate 82 05/11/23 08:15 Respiratory Rate 20 05/11/23 08:15 Blood Pressure 122/67 05/11/23 08:15 O2 Sat by Pulse Oximetry 98 05/11/23 08:15 Pain Scale Pain Intensity 6 - Physical Exam General Appearance: no apparent distress Eye Exam: PERRL/EOMI Neck Exam: normal inspection, full range of motion Respiratory Exam: normal breath sounds, lungs clear Cardiovascular Exam: regular rate/rhythm, normal heart sounds Extremity Exam: normal inspection, normal range of motion, other (Swelling of toe. No definite tenderness but reproducible tenderness with pressure on the big toenail. No nasal fold erythema or swelling.) Neurologic Exam: alert, oriented x 3, cooperative Skin Exam: normal color SpO2 Interpretation: normal SpO2: 98 O2 Delivery: Room Air - Progress Progress: unchanged Progress Note: 05/11/23 09:30 52 years old is evaluated for right big toenail pain. Patient reports it hurts with ambulation and putting shoes on. Patient does not have any bony tenderness obviously. She has no erythema. Patient pain is reproducible with pressure on the nail. No signs of nasal fold infection. X-rays are negative. Offered pain medication which she declined. I believe patient needs new shoes with some room to avoid pressure on the nail. Recommended Tylenol as needed and outpatient follow-up. Discussed signs symptoms of worsening needing return to ER which she seems understanding. Counseled pt/family regarding: diagnosis, need for follow-up, rad results Medical Desision Making - Diagnostic Testing Diagnostic test were ordered, analyzed, and reviewed by me: Yes Radiological Interpretation: Reviewed by me - Departure Departure Disposition: Home Clinical Impression: Toe pain, right Condition: Stable Critical Care Time: No Referrals: BALDEV CRUZ [Primary Care Provider] - Follow up/PCP as directed PASCUAL AARON DPM [ACTIVE STAFF] - Follow up/PCP as directed (Call today for appointment for reevaluation) Instructions: Ingrown Toenail (DC), Toe Injury (DC) Additional Instructions: Tylenol as needed. Follow-up with podiatry for reevaluation. Use soft shoes and put some padding in front of the nail. Return to ER for excruciating pain, swelling of the toe, redness, fever chills etc.
== END 2023-05-11 09:40 | disposition home or self-care (01) ==
LOC: ED 08:09
DX: M79.674 Pain in right toe(s) (principal); E11.42 Type 2 diabetes mellitus with diabetic polyneuropathy; I10 Essential (primary) hypertension; Z79.84 Long term (current) use of oral hypoglycemic drugs; Z79.891 Long term (current) use of opiate analgesic; Z79.899 Other long term (current) drug therapy; Z72.0 Tobacco use
CPT/HCPCS: 73660; 99282

== ENCOUNTER 2023-05-13 04:56 | Emergency (ER) | payer OTHER ==
[2023-05-13 05:18] VITALS: TEMP 97.1
[2023-05-13 05:50] LABS: Appearance Clear (Clear); Bacteria None Seen /HPF (None Seen); Bilirubin Negative (Negative); Blood Trace (Negative); Epithelial Cells Rare /HPF (None Seen); Glucose, Urine Negative (Negative); Hyaline Casts NONE SEEN /LPF (0-2); Ketones Negative (Negative); Leukocyte Esterase Negative (Negative); Nitrite Negative (Negative); Protein,Urine Dip Negative (Negative); RBC 0-2 /HPF (0-5); Specific Gravity <=1.005 (1.005-1.030); Urobilinogen 0.2 mg/dL (0.2); WBC 0-2 /HPF (0-5)
[2023-05-13 06:00] LABS: ADD URINE CULTURE? NO (NO)
--- NOTE | 2023-05-13 06:16 | ERPHSYRPT ---
- History of Present Illness Historian: patient Exam Limitations: no limitations Patient Subjective Stated Complaint: pt states that she has had back pain that radiates to her lower abd Triage Nursing Assessment: pt ambulated into the er; pt is axo x4; c/o flank pain; c/o 9/10 pain to left flank region; pt states pain radiates to becky lower abd; active bowel sounds in all quads; pt denies pain and/ or burning with urination; urine clear pale yellow; skin PDW; no respiratory distress; vitals wnl Hx Tetanus, Diphtheria Vaccination/Date Given: Yes Hx Influenza Vaccination/Date Given: Yes Hx Pneumococcal Vaccination/Date Given: No <DESIRAE MINAYA - Last Filed: 05/13/23 06:54> <JOSE LOZADA - Last Filed: 05/13/23 08:16> - History of Present Illness Time Seen by Provider: 05/13/23 04:58 Physician History: 52 years old female with history of hypertension, diabetes mellitus, hyperlipidemia presented in the ER with chief complaint of left flank/left lower quadrant pain with radiation to suprapubic area, moderate to severe sharp, off-and-on for last 3 days with progressive worsening lately. Denies associated complaints of UTI. Patient reports having similar kind of pain with UTI in the past. Denies associated nausea or vomiting. No fever or chills reported. (DESIRAE MINAYA) Allergies/Adverse Reactions: meperidine [From Demerol] Allergy (Intermediate, Verified 05/13/23 05:03) Hives morphine Adverse Reaction (Severe, Verified 05/13/23 05:03) Swelling of Tongue and Lips burning, no rash Home Medications: Duloxetine HCl [Cymbalta] 60 mg PO DAILY 09/24/15 [History] Ziprasidone 20 mg [Geodon 20 MG Capsule] 20 mg PO DAILY 07/23/21 [History] Albuterol Sulfate [Albuterol Sulfate Hfa] 2 inhaler Q6H 01/25/23 [History] Aspirin 81 gm Chew [Baby Aspirin 81 mg Chew] 81 mg PO DAILY 01/25/23 [History] Atorvastatin Calcium 20 mg PO DAILY 01/25/23 [History] Lisinopril 10 mg [Zestril 10 MG] 10 mg PO DAILY 01/25/23 [History] Pramipexole Di-HCl 0.5 mg [Mirapex 0.5 MG Tablet] 0.5 mg PO TID 01/25/23 [History] Ziprasidone HCl [Geodon] 40 mg PO HS 01/25/23 [History] hydroCHLOROthiazide [Hydrochlorothiazide] 12.5 mg PO DAILY 01/25/23 [History] terbinafine HCL [Terbinafine HCl] 250 mg PO DAILY 01/25/23 [History] Cyclobenzaprine HCl 10 mg [Cyclobenzaprine 10 MG] 10 mg PO TID 02/19/23 [History] Metformin HCl 500 mg [Glucophage 500 MG] 500 mg PO BID 02/19/23 [History] Buprenorphine [Butrans] 1 patch TOP WEEKLY 04/13/23 [History] Trazodone HCl 100 mg PO HS 04/13/23 [History] Meclizine HCl 25 mg [Antivert 25 mg] 25 mg PO BID 05/13/23 [History] Travel Risk - International Travel Have you traveled outside of the country in past 3 weeks: No - Coronavirus Screening Are you exhibiting any of the following symptoms?: No Close contact with a COVID-19 positive Pt in past 14-21 Days: No - Vaccine Status Have you recieved a Covid-19 vaccination: No Test Analyst: Unknown - Vaccination Dates Dates if Unknown: UNKNOWN <DESIRAE MINAYA - Last Filed: 05/13/23 06:54> - Review of Systems Constitutional: No Symptoms Eyes: No Symptoms Ears, Nose, & Throat: No Symptoms Respiratory: No Symptoms Cardiac: No Symptoms Abdominal/Gastrointestinal: Abdominal Pain Genitourinary Symptoms: No Symptoms Musculoskeletal: Arthralgias, Back Pain Skin: No Symptoms Neurological: No Symptoms Endocrine: No Symptoms Hematologic/Lymphatic: No Symptoms Immunological/Allergic: No Symptoms <DESIRAE MINAYA - Last Filed: 05/13/23 06:54> - Past Medical History Pertinent Past Medical History: Yes Neurological History: Peripheral Neuropathy ENT History: No Pertinent History Cardiac History: Hypertension, Myocardial Infarction ([place]) Respiratory History: COPD Endocrine Medical History: Diabetes Type II Musculoskeletal History: Osteoarthritis GI Medical History: No Pertinent History History: No Pertinent History Psycho-Social History: Depression Female Reproductive Disorders: No Pertinent History Other Medical History: [place] IN 2018. HX OF SUICIDE ATTEMPTS X 2 WITH MEDICATION OVERDOSE LAST ATTEMPT 2000 - Past Surgical History Past Surgical History: Yes Neuro Surgical History: No Pertinent History Cardiac: No Pertinent History, Cardiac Catheterization, Cardiac Stent Respiratory: No Pertinent History Gastrointestinal: Cholecystectomy Genitourinary: No Pertinent History Musculoskeletal: Orthopedic Surgery Female Surgical History: Section, Tubal Ligation Other Surgical History: hand surgery , BACK SUGERY - Social History Smoking Status: Current every day smoker How long have you smoked: 27 YRS Exposure to second hand smoke: Yes Drug Use: marijuana Patient Lives Alone: No <DESIRAE MINAYA - Last Filed: 05/13/23 06:54> - Physical Exam General Appearance: no apparent distress, alert Eye Exam: PERRL/EOMI Ears, Nose, Throat Exam: normal ENT inspection Neck Exam: normal inspection, non-tender, supple, full range of motion Respiratory Exam: normal breath sounds, lungs clear Cardiovascular Exam: regular rate/rhythm, normal heart sounds Gastrointestinal/Abdomen Exam: soft, normal bowel sounds, tenderness (Left lower quadrant/left flank) Back Exam: CVA tenderness (Left) Extremity Exam: normal inspection, normal range of motion Neurologic Exam: alert, oriented x 3, cooperative Skin Exam: normal color SpO2 Interpretation: normal SpO2: 98 O2 Delivery: Room Air <DESIRAE MINAYA - Last Filed: 05/13/23 06:54> - Nursing Vital Signs Nursing Vital Signs: Initial Vital Signs Temperature 97.1 F 05/13/23 05:05 Pulse Rate 91 H 05/13/23 05:05 Respiratory Rate 16 05/13/23 05:05 Blood Pressure 145/81 05/13/23 05:05 O2 Sat by Pulse Oximetry 98 05/13/23 05:05 Pain Scale Pain Intensity 0 - CT Exams Abdomen/Pelvis CT Interpretation: Tele-radiologist Report (CT abdomen pelvis without contrast demonstrated hepatomegaly/left adrenal nodule which is old/nothing acute.) <JOSE LOZADA - Last Filed: 05/13/23 08:16> Ordered Tests: Active Orders 24 hr Category Date Time Status IV Insertion STAT Care 05/13/23 06:01 Active NPO (ED) STAT Care 05/13/23 06:01 Active ABDOMEN AND PELVIS W/0 CONTRAS [CT] Stat Exams 05/13/23 06:18 Taken CBC W DIFF Stat Lab 05/13/23 06:16 Completed CMP Stat Lab 05/13/23 06:16 Completed LIPASE Stat Lab 05/13/23 06:16 Completed UA W/RFX UR CULTURE Stat Lab 05/13/23 05:22 Completed Urine Triage Profile Stat Lab 05/13/23 07:42 Completed Medication Summary Discontinued Medications Generic Name Dose Route Start Last Admin Trade Name Chiquita PRN Reason Stop Dose Admin Sodium Chloride 1,000 mls @ 999 mls/hr 05/13/23 06:01 05/13/23 07:42 Sodium Chloride 0.9% 1000 Ml IV 05/13/23 07:01 Infused .Q1H1M STA Infusion Sodium Chloride Confirm 05/13/23 06:37 Sodium Chloride 0.9% 1000 Ml Administered 05/13/23 06:38 Dose 1,000 mls @ ud .ROUTE .STK-MED ONE Ketorolac Tromethamine 30 mg 05/13/23 06:03 05/13/23 06:38 Ketorolac Tromethamine 30 Mg/Ml Inj IV 05/13/23 06:04 30 mg STAT ONE Administration Ketorolac Tromethamine Confirm 05/13/23 06:37 Ketorolac Tromethamine 30 Mg/Ml Inj Administered 05/13/23 06:38 Dose 30 mg .ROUTE .STK-MED ONE Ondansetron HCl 4 mg 05/13/23 06:01 05/13/23 06:38 Ondansetron Hcl 4 Mg/2 Ml Vial IV 05/13/23 06:02 4 mg STAT ONE Administration Ondansetron HCl Confirm 05/13/23 06:37 Ondansetron Hcl 4 Mg/2 Ml Vial Administered 05/13/23 06:38 Dose 4 mg .ROUTE .STK-MED ONE Lab/Rad Data: Laboratory Result Diagrams 05/13/23 06:16 05/13/23 06:16 Laboratory Results 05/13/23 05/13/23 05/13/23 Range/Units 07:42 06:16 06:16 WBC 6.5 (4.0-10.5) x10^3/uL RBC 4.79 (4.1-5.4) x10^6/uL Hgb 13.5 (12.0-16.0) g/dL Hct 41.4 (35-47) % MCV 86.4 (78-100) fL MCH 28.2 (26-32) pg MCHC 32.6 (32-36) g/dL RDW 12.9 (11.5-14.0) % Plt Count 218 (150-450) x10^3/uL MPV 9.5 (7.5-11.0) fL Gran % 59.8 (36.0-66.0) % Immature Gran % (Auto) 0.5 H (0.00-0.4) % Nucleat RBC Rel Count 0.0 (0.00-0.1) % Eos # (Auto) 0.31 (0-0.5) x10^3/uL Immature Gran # (Auto) 0.03 (0.00-0.03) x10^3u/L Absolute Lymphs (auto) 1.54 (1.0-4.6) x10^3/uL Absolute Monos (auto) 0.66 (0.0-1.3) x10^3/uL Absolute Nucleated RBC 0.00 (0.00-0.01) x10^3u/L Lymphocytes % 23.7 L (24.0-44.0) % Monocytes % 10.1 (0.0-12.0) % Eosinophils % 4.8 (0.00-5.0) % Basophils % 1.1 (0.0-0.4) % Absolute Granulocytes 3.90 (1.4-6.9) x10^3/uL Basophils # 0.07 (0-0.4) x10^3/uL Sodium 138 (137-145) mmol/L Potassium 3.9 (3.5-5.1) mmol/L Chloride 103 (98-107) mmol/L Carbon Dioxide 33 H (22-30) mmol/L Anion Gap 5.4 (5-15) MEQ/L BUN 10 (7-17) mg/dL Creatinine 0.69 (0.52-1.04) mg/dL Estimated GFR 105.7 ML/MIN Glucose 75 (74-106) mg/dL Calcium 9.3 (8.4-10.2) mg/dL Total Bilirubin 0.20 (0.2-1.3) mg/dL AST 21 (14-36) U/L ALT 19 (0-35) U/L Alkaline Phosphatase 48 (38-126) U/L Serum Total Protein 6.6 (6.3-8.2) g/dL Albumin 4.0 (3.5-5.0) g/dL Lipase 43 (23-300) U/L Urine Color (Yellow) Urine Appearance (Clear) Urine pH (4.6-8.0) Ur Specific [place] (1.005-1.030) Urine Protein (Negative) Urine Glucose (UA) (Negative) mg/dL Urine Ketones (Negative) Urine Blood (Negative) Urine Nitrite (Negative) Urine Bilirubin (Negative) Urine Urobilinogen (0.2) mg/dL Ur Leukocyte Esterase (Negative) U Hyaline Cast (Auto) (0-2) /LPF Urine Microscopic RBC (0-5) /HPF Urine Microscopic WBC (0-5) /HPF Ur Epithelial Cells (None Seen) /HPF Urine Bacteria (None Seen) /HPF Urine Culture Reflexed (NO) Urine Opiates Level NEGATIVE (NEGATIVE) Ur Methadone NEGATIVE (NEGATIVE) Urine Barbiturates NEGATIVE (NEGATIVE) Ur Phencyclidine (PCP) NEGATIVE (NEGATIVE) Urine Amphetamine NEGATIVE (NEGATIVE) U Benzodiazepine Level NEGATIVE (NEGATIVE) Urine Cocaine NEGATIVE (NEGATIVE) Urine Marijuana (THC) POSITIVE A (NEGATIVE) 05/13/23 Range/Units 05:22 WBC (4.0-10.5) x10^3/uL RBC (4.1-5.4) x10^6/uL Hgb (12.0-16.0) g/dL Hct (35-47) % MCV (78-100) fL MCH (26-32) pg MCHC (32-36) g/dL RDW (11.5-14.0) % Plt Count (150-450) x10^3/uL MPV (7.5-11.0) fL Gran % (36.0-66.0) % Immature Gran % (Auto) (0.00-0.4) % Nucleat RBC Rel Count (0.00-0.1) % Eos # (Auto) (0-0.5) x10^3/uL Immature Gran # (Auto) (0.00-0.03) x10^3u/L Absolute Lymphs (auto) (1.0-4.6) x10^3/uL Absolute Monos (auto) (0.0-1.3) x10^3/uL Absolute Nucleated RBC (0.00-0.01) x10^3u/L Lymphocytes % (24.0-44.0) % Monocytes % (0.0-12.0) % Eosinophils % (0.00-5.0) % Basophils % (0.0-0.4) % Absolute Granulocytes (1.4-6.9) x10^3/uL Basophils # (0-0.4) x10^3/uL Sodium (137-145) mmol/L Potassium (3.5-5.1) mmol/L Chloride (98-107) mmol/L Carbon Dioxide (22-30) mmol/L Anion Gap (5-15) MEQ/L BUN (7-17) mg/dL Creatinine (0.52-1.04) mg/dL Estimated GFR ML/MIN Glucose (74-106) mg/dL Calcium (8.4-10.2) mg/dL Total Bilirubin (0.2-1.3) mg/dL AST (14-36) U/L ALT (0-35) U/L Alkaline Phosphatase (38-126) U/L Serum Total Protein (6.3-8.2) g/dL Albumin (3.5-5.0) g/dL Lipase (23-300) U/L Urine Color Yellow (Yellow) Urine Appearance Clear (Clear) Urine pH 6.0 (4.6-8.0) Ur Specific [place] <=1.005 (1.005-1.030) Urine Protein Negative (Negative) Urine Glucose (UA) Negative (Negative) mg/dL Urine Ketones Negative (Negative) Urine Blood Trace (Negative) Urine Nitrite Negative (Negative) Urine Bilirubin Negative (Negative) Urine Urobilinogen 0.2 (0.2) mg/dL Ur Leukocyte Esterase Negative (Negative) U Hyaline Cast (Auto) NONE SEEN (0-2) /LPF Urine Microscopic RBC 0-2 (0-5) /HPF Urine Microscopic WBC 0-2 (0-5) /HPF Ur Epithelial Cells Rare (None Seen) /HPF Urine Bacteria None Seen (None Seen) /HPF Urine Culture Reflexed NO (NO) Urine Opiates Level (NEGATIVE) Ur Methadone (NEGATIVE) Urine Barbiturates (NEGATIVE) Ur Phencyclidine (PCP) (NEGATIVE) Urine Amphetamine (NEGATIVE) U Benzodiazepine Level (NEGATIVE) Urine Cocaine (NEGATIVE) Urine Marijuana (THC) (NEGATIVE) <DESIRAE MINAYA - Last Filed: 05/13/23 06:54> - Progress Counseled pt/family regarding: lab results, diagnosis, need for follow-up, rad results <JOSE LOZADA - Last Filed: 05/13/23 08:16> - Progress Progress Note: 05/13/23 06:55 She is given symptomatic treatment for pain, workup is pending, care is transferred to at end of my shift for reevaluation, review of workup and final disposition. (DESIRAE MINAYA) 05/13/23 08:12 Assumed care of 52-year-old female at shift change with left lower quadrant left flank pain rating to her back for approximately 2 days. Pain is sharp, 10 upon arrival, and currently 4 out of 10 after Toradol administrated per previous physician. Patient stable and resting comfortably. CT abdomen pelvis demonstrates no acute changes and lab work and urine are all within normal limits. Etiology of patient's pain unknown at this time but it is improving and she is resting comfortably. Patient discharged follow-up with her PCP return to ER for increasing pain or temperature greater 100.5. (JOSE LOZADA) <DESIRAE MINAYA - Last Filed: 05/13/23 06:54> - Departure Departure Disposition: Home Critical Care Time: No <JOSE LOZADA - Last Filed: 05/13/23 08:16> - Departure Clinical Impression: Flank pain Condition: Stable Referrals: BALDEV CRUZ [Primary Care Provider] - Follow up/PCP as directed Instructions: Flank Pain (DC) Additional Instructions: Follow-up with your family MD early next week. Motrin/Tylenol for pain Return to ER for increasing pain or temperature greater 100.5.
[2023-05-13 06:17] LABS: BASOPHIL % 1.1 % (0.0-0.4); Basophil (Absolute #) 0.07 x10^3/uL (0-0.4); Eosinophil % 4.8 % (0.00-5.0); Eosinophil (Absolute #) 0.31 x10^3/uL (0-0.5); Hematocrit 41.4 % (35-47); Hemoglobin 13.5 g/dL (12.0-16.0); IMMATURE GRAN # 0.03 x10^3u/L (0.00-0.03); IMMATURE GRAN % 0.5 % (0.00-0.4); Lymphocyte (Absolute #) 1.54 x10^3/uL (1.0-4.6); Lymphocytes % 23.7 % (24.0-44.0); Mean Cell Volume 86.4 fL (78-100); Mean Corpuscular Hemoglobin 28.2 pg (26-32); Mean Corpuscular Hgb Concent. 32.6 g/dL (32-36); Mean Platelet Volume 9.5 fL (7.5-11.0); Monocyte (Absolute #) 0.66 x10^3/uL (0.0-1.3); Monocytes % 10.1 % (0.0-12.0); Neutrophil % 59.8 % (36.0-66.0); Platelet Count 218 x10^3/uL (150-450); Red Blood Count 4.79 x10^6/uL (4.1-5.4); Red Cell Distribution Width 12.9 % (11.5-14.0); White Blood Count 6.5 x10^3/uL (4.0-10.5)
[2023-05-13 06:34] LABS: ANION GAP 5.4 MEQ/L (5-15); BILIRUBIN,TOTAL 0.2 mg/dL (0.2-1.3); Calcium 9.3 mg/dL (8.4-10.2); Creatinine 1 0.69 mg/dL (0.52-1.04); EST GLOMERULAR FILTRATION RATE 105.7 ML/MIN; Potassium 3.9 mmol/L (3.5-5.1); Total Protein 6.6 g/dL (6.3-8.2)
[2023-05-13] MEDS ORDERED: TORAdol 30 mg Injection ONE (06:37)
[2023-05-13] MEDS ORDERED: Sodium Chloride 0.9% 1000 ML 1,000 ML ONE (06:37)
[2023-05-13] MEDS ORDERED: Zofran 4 MG/2 ML VIAL ONE (06:37)
[2023-05-13] MEDS: Zofran 4 MG/2 ML VIAL IV ONE (06:38)
[2023-05-13] MEDS: TORAdol 30 mg Injection IV ONE (06:38)
[2023-05-13] MEDS: Sodium Chloride 0.9% 1000 ML 1,000 ML IV STA (06:38)
[2023-05-13 08:05] LABS: Amphetamine,Urine NEGATIVE (NEGATIVE); Barbiturate,Urine NEGATIVE (NEGATIVE); Benzodiazepine,Urine NEGATIVE (NEGATIVE); Cocaine,Urine NEGATIVE (NEGATIVE); Methadone,Urine NEGATIVE (NEGATIVE); Opiate,Urine NEGATIVE (NEGATIVE); PCP,Urine NEGATIVE (NEGATIVE); THC,Urine POSITIVE (NEGATIVE)
--- NOTE | 2023-05-13 08:15 | XRAY ---
CLINICAL HISTORY: left flank/backpain TECHNIQUE: CT of the abdomen and pelvis was performed with axial images as well as sagittal and coronal reconstruction images without intravenous contrast. CTDI: 14.25, Total DLP: 775.69. COMPARISON: Dated: 07/29/2022. FINDINGS: The liver is enlarged in size showing smooth outlines. No intrahepatic or extrahepatic bile duct dilation. No gross focal lesions. The Gallbladder Is not visualized, metallic clips are noted in the GB fossa representing cholecystectomy. Clear operative bed. Unremarkable appearing pancreas. No pancreatic mass or ductal dilatation is seen. Unremarkable appearing spleen. Redemonstration of the left adrenal gland oval-shaped nodule measures 1.8 x 1.3 cm. No abdominal wall pathology is seen. The kidneys appear normal in size. No calculi, masses or hydronephrosis. A tiny right upper pole exophytic cyst is seen. The ureters are normal with no stones or backpressure. The bladder is unremarkable with no stones. The stomach is partially collapsed and appears grossly unremarkable. Unremarkable appearing duodenum. Small Bowel and colon are non-distended with no abnormality. The appendix is visualized and appears grossly unremarkable, no evidence of bridgett appendiceal fat stranding. No unterine or adenxal masses. No free air and no ascites. No free intraperitoneal air is seen. Aorto-vascular atheromatous calcifications. Still seen degenerative changes noted in the visualized bones with disc herniations/disc osteophyte complex at L1-L2 level with discal calcification and L5-S1 disc osteophyte complex causing bilateral neural foramen narrowing ,would recommend MRI lumbar spine for further evaluation. The visualized lung bases show a rounded well-defined soft tissue density area measuring 1.2x 1.1 x 0.9 cm with smooth margins and internal central tiny calcification focus suggesting a benign findinghamartoma. IMPRESSION: 1. Hepatomegaly. 2. Redemonstration of the oval-shaped nodule measures 1.8 x 1.3 cm noted in the left adrenal gland. 3. No significant changes since the last exam. Electronically Signed by: Sammie French MD. (05/13/2023 06:08:47 PROCESS IMPROVEMENT ENGINEER)
[2023-05-13 08:30] VITALS: BP 117/74; PULSE 66; RESP 17; O2SAT 96
== END 2023-05-13 08:31 | disposition home or self-care (01) ==
LOC: ED 04:56
DX: R10.32 Left lower quadrant pain (principal); I10 Essential (primary) hypertension; E11.42 Type 2 diabetes mellitus with diabetic polyneuropathy; E78.5 Hyperlipidemia, unspecified; Z79.84 Long term (current) use of oral hypoglycemic drugs; Z79.891 Long term (current) use of opiate analgesic; Z79.899 Other long term (current) drug therapy; Z28.310 Unvaccinated for COVID-19; Z72.0 Tobacco use
CPT/HCPCS: 36000; 36415; 74176; 80053; 80307; 81001; 83690; 85025; 96360; 96374; 99284; J1885; J2405

== ENCOUNTER 2023-06-22 05:02 | Emergency (ER) | payer OTHER ==
[2023-06-22 05:18] LABS: Appearance Clear (Clear); Bacteria None Seen /HPF (None Seen); Bilirubin Negative (Negative); Blood Small (Negative); Epithelial Cells None Seen /HPF (None Seen); Glucose, Urine Negative (Negative); Hyaline Casts NONE SEEN /LPF (0-2); Ketones Negative (Negative); Leukocyte Esterase Large (Negative); Nitrite Negative (Negative); Ph 6.5 (4.6-8.0); Protein,Urine Dip Negative (Negative); Urobilinogen 0.2 mg/dL (0.2); WBC >100 /HPF (0-5)
[2023-06-22 05:21] LABS: ADD URINE CULTURE? YES (NO)
[2023-06-22 05:29] VITALS: TEMP 96.8
--- NOTE | 2023-06-22 06:33 | ERPHSYRPT ---
- History of Present Illness Time Seen by Provider: 06/22/23 06:20 Source: patient Exam Limitations: no limitations Patient Subjective Stated Complaint: pt states that at approx 0345 she urinated and there was an approx quarter size amt of not bright red blood when she wiped and pt feels comfident it wasn't vaginal. also reports since that time she feels a "vibration around where my urine comes out". Triage Nursing Assessment: pt ambulated into room 7 independently with slow steady gait after using restroom to provide urine specimen for lab. pt is alert and oriented times three, able to move all extremities, able to speak in complete sentences, and with resp even and unlabored. pt states only pain she has chronic back/ hip pain that is beeing worked up currently with recent MRI. only complaint is uretheral muscle spasms and urgency without frequency or increased urinary output (on diuretics). denies any other symptoms or sick contacts. Physician History: 52-year-old female presents to our emergency department for evaluation of hematuria and dysuria. Patient observed for symptoms this morning at approximately 3:45 AM. Patient has a history of urinary tract infections. She does not recall the antibiotics used to treat her infections. No associated fever or flank pain. Patient describes a vibration near the urethra. Symptoms occur when she urinates. She is asymptomatic at rest. Patient declined pain medication. Patient otherwise feels well. No trauma. No nausea vomiting or diaphoresis. Patient voices no other complaints or concerns at this time. Portions of this note were created with voice recognition technology. There may be grammatical, spelling, punctuation or sound alike errors Timing/Duration: today Severity: moderate Modifying Factors: Improves With: nothing Associated Symptoms: denies symptoms Allergies/Adverse Reactions: meperidine [From Demerol] Allergy (Intermediate, Verified 06/22/23 05:08) Hives morphine Adverse Reaction (Severe, Verified 06/22/23 05:08) Swelling of Tongue and Lips burning, no rash Home Medications: Duloxetine HCl [Cymbalta] 60 mg PO DAILY 09/24/15 [History] Albuterol Sulfate [Albuterol Sulfate Hfa] 2 puff IH Q6H PRN PRN 01/25/23 [History] Lisinopril 10 mg [Zestril 10 MG] 10 mg PO DAILY 01/25/23 [History] hydroCHLOROthiazide [Hydrochlorothiazide] 12.5 mg PO DAILY 01/25/23 [History] Cyclobenzaprine HCl 10 mg [Cyclobenzaprine 10 MG] 10 mg PO TID PRN PRN 02/19/23 [History] Metformin HCl 500 mg [Glucophage 500 MG] 500 mg PO BID 02/19/23 [History] Trazodone HCl 100 mg PO HS 04/13/23 [History] Meclizine HCl 25 mg [Antivert 25 mg] 25 mg PO BID 05/13/23 [History] Aspirin EC 81 mg [Ecotrin 81 mg] 81 mg PO DAILY 06/22/23 [History] Atorvastatin Calcium 20 mg PO DAILY 06/22/23 [History] Buprenorphine HCl [Belbuca] 450 mcg BC BID 06/22/23 [History] Furosemide 20 mg [Lasix 20 mg] 20 mg PO DAILY 06/22/23 [History] Pramipexole Di-HCl [Pramipexole Dihydrochloride] 0 mg PO UD 06/22/23 [History] terbinafine HCL [Terbinafine HCl] 250 mg PO DAILY 06/22/23 [History] ziprasidone HCL [Ziprasidone HCl] 20 mg PO DAILY 06/22/23 [History] ziprasidone HCL [Ziprasidone HCl] 40 mg PO HS 06/22/23 [History] Hx Tetanus, Diphtheria Vaccination/Date Given: Yes Hx Influenza Vaccination/Date Given: Yes Hx Pneumococcal Vaccination/Date Given: No Immunizations Up to Date: Yes Travel Risk - International Travel Have you traveled outside of the country in past 3 weeks: No - Emerging Infectious Disease Are you exhibiting symptoms associated with any current EIDs: No - Review of Systems Constitutional: No Symptoms, No Fever, No Chills Eyes: No Symptoms Ears, Nose, & Throat: No Symptoms Respiratory: No Symptoms, No Cough, No Dyspnea Cardiac: No Symptoms, No Chest Pain, No Edema, No Syncope Abdominal/Gastrointestinal: No Symptoms, No Abdominal Pain, No Nausea, No Vomiting, No Diarrhea Genitourinary Symptoms: No Symptoms, No Dysuria Musculoskeletal: No Symptoms, No Back Pain, No Neck Pain Skin: No Symptoms, No Rash Neurological: No Symptoms, No Dizziness, No Focal Weakness, No Sensory Changes Psychological: No Symptoms Endocrine: No Symptoms Hematologic/Lymphatic: No Symptoms Immunological/Allergic: No Symptoms All Other Systems: Reviewed and Negative - Past Medical History Pertinent Past Medical History: Yes Neurological History: Seizures, TIA ENT History: No Pertinent History Cardiac History: High Cholesterol, Hypertension, Myocardial Infarction ([place]) Respiratory History: COPD, Sleep Apnea, Other Endocrine Medical History: Diabetes Type II Musculoskeletal History: Osteoarthritis GI Medical History: No Pertinent History History: No Pertinent History Psycho-Social History: Depression Female Reproductive Disorders: No Pertinent History Other Medical History: 2 C-SECTIONS, O2 AT NIGHT, OA IN KNEE. PATIENT IS PRESENTLY TRYING TO GET ON DISABILITY. - Past Surgical History Past Surgical History: Yes Neuro Surgical History: No Pertinent History Cardiac: No Pertinent History, Cardiac Catheterization, Cardiac Stent Respiratory: No Pertinent History Gastrointestinal: Cholecystectomy Genitourinary: No Pertinent History Musculoskeletal: Orthopedic Surgery Female Surgical History: Section, Tubal Ligation Other Surgical History: hand surgery , BACK SUGERY- cyst removal - Female History Hx Last Menstrual Period: 2020 Hx Now: No - Social History Smoking Status: Current every day smoker How long have you smoked: 18yo Exposure to second hand smoke: Yes Drug Use: marijuana Patient Lives Alone: No - Nursing Vital Signs Nursing Vital Signs: Initial Vital Signs Temperature 96.8 F 06/22/23 05:09 Pulse Rate 86 06/22/23 05:09 Respiratory Rate 18 06/22/23 05:09 Blood Pressure 183/112 06/22/23 05:09 O2 Sat by Pulse Oximetry 97 06/22/23 05:09 Pain Scale Pain Intensity 9 - Physical Exam General Appearance: no apparent distress, alert Eye Exam: PERRL/EOMI, eyes nml inspection Ears, Nose, Throat Exam: normal ENT inspection, TMs normal, pharynx normal, moist mucous membranes Neck Exam: normal inspection, non-tender, supple, full range of motion Respiratory Exam: normal breath sounds, lungs clear, airway intact, No respiratory distress Cardiovascular Exam: regular rate/rhythm, normal heart sounds, normal peripheral pulses Gastrointestinal/Abdomen Exam: soft, normal bowel sounds, No tenderness, No mass Back Exam: normal inspection, normal range of motion, No CVA tenderness, No vertebral tenderness Extremity Exam: normal inspection, normal range of motion, pelvis stable Neurologic Exam: alert, oriented x 3, cooperative, normal mood/affect, nml cerebellar function, nml station & gait, sensation nml, No motor deficits Skin Exam: normal color, warm, dry, No rash Lymphatic Exam: No adenopathy SpO2 Interpretation: normal SpO2: 97 O2 Delivery: Room Air - Course Nursing assessment & vital signs reviewed: Yes Ordered Tests: Active Orders 24 hr Category Date Time Status CULTURE,URINE Stat Lab 06/22/23 05:06 Received UA W/RFX UR CULTURE Stat Lab 06/22/23 05:06 Completed Lab/Rad Data: Laboratory Results 06/22/23 Range/Units 05:06 Urine Color Yellow (Yellow) Urine Appearance Clear (Clear) Urine pH 6.5 (4.6-8.0) Ur Specific [place] 1.010 (1.005-1.030) Urine Protein Negative (Negative) Urine Glucose (UA) Negative (Negative) mg/dL Urine Ketones Negative (Negative) Urine Blood Small A (Negative) Urine Nitrite Negative (Negative) Urine Bilirubin Negative (Negative) Urine Urobilinogen 0.2 (0.2) mg/dL Ur Leukocyte Esterase Large A (Negative) U Hyaline Cast (Auto) NONE SEEN (0-2) /LPF Urine Microscopic RBC 11-20 A (0-5) /HPF Urine Microscopic WBC >100 A (0-5) /HPF Ur Epithelial Cells None Seen (None Seen) /HPF Urine Bacteria None Seen (None Seen) /HPF Urine Culture Reflexed YES (NO) - Progress Progress: improved Progress Note: 52-year-old female presents to our ED with urinary complaints. Physical exam essentially nonremarkable. No flank pain. No CVA tenderness. No systemic manifestations of urinary tract infection. No fever. Urinalysis reveals hematuria and pyuria consistent with a urinary tract infection. Urine reflex to culture. Patient received an IM dose of Rocephin. A prescription for Keflex forwarded to patient's pharmacy. Patient agrees to follow-up with her primary care doctor within 48 hours for evaluation. Patient resting comfortably at this time. She declined pain medication. Patient voices no other complaints or concerns at this time. Portions of this note were created with voice recognition technology. There may be grammatical, spelling, punctuation or sound alike errors Complexity problem addressed is moderate acute complicated No critical care time Complexity of data reviewed and analyzed is moderate. Dr. Prince independently reviewed the urinalysis. The findings correlated with patient's clinical history and physical exam. Diagnosis of UTI rendered. Management initiated Risk of complication and or risk of morbidity/mortality of patient management is moderate. A prescription for Keflex forwarded to patient's pharmacy. Vital stable. Time spent to discharge patient is approximately 15 minutes. Plan of care established for shared decision making. No social determinants of health present impede follow-up. Portions of this note were created with voice recognition technology. There may be grammatical, spelling, punctuation or sound alike errors 06/22/23 06:37 Counseled pt/family regarding: lab results, diagnosis, need for follow-up - Departure Departure Disposition: Home Clinical Impression: UTI (urinary tract infection), Hematuria, Pyuria Condition: Stable Critical Care Time: No Referrals: BALDEV CRUZ [Primary Care Provider] - Follow up/PCP as directed Additional Instructions: Discharge/Care Plan BRAN FRASER was seen on 06/22/23 in the Emergency Room. The patient was counseled regarding Diagnosis,Lab results, Imaging studies, need for follow up and when to return to the Emergency Room. Prescriptions given: Discharge Note I have spoken with the patient and/or caregivers. I have explained the patient's condition, diagnosis and treatment plan based on the information available to me at this time. I have answered the patient's and/or caregiver's questions and addressed any concerns. The patient and/or caregivers have as good understanding of the patient's diagnosis, condition and treatment plan as can be expected at this point. The vital signs have been stable. The patient's condition is stable and appropriate for discharge from the emergency department. The patient will pursue further outpatient evaluation with the primary care physician or other designated or consulting physician as outlined in the discharge instructions. The patient and/or caregivers are agreeable to this plan of care and follow-up instructions have been explained in detail. The patient and/or caregivers have received these instruction. The patient/and or caregivers are aware that any significant change in condition or worsening of symptoms should prompt an immediate return to this or the closest emergency department or call 911. Prescriptions: Cephalexin Mh 500 mg [Keflex 500 mg] 500 mg PO TID #21 cap
[2023-06-22] MEDS ORDERED: Rocephin 1000 MG INJ ONE (06:43)
[2023-06-22] MEDS ORDERED: XYLOCAINE 1% HCL 20 ML MDV ONE (06:44)
[2023-06-22 06:46] VITALS: RESP 20
[2023-06-22] MEDS: Rocephin 1000 MG INJ IM ONE (06:49)
[2023-06-22 06:54] VITALS: BP 170/80; PULSE 84; O2SAT 99
== END 2023-06-22 07:14 | disposition home or self-care (01) ==
LOC: ED 05:02
DX: N39.0 Urinary tract infection, site not specified (principal); R31.9 Hematuria, unspecified; R30.0 Dysuria; E78.5 Hyperlipidemia, unspecified; I10 Essential (primary) hypertension; E11.9 Type 2 diabetes mellitus without complications; Z79.84 Long term (current) use of oral hypoglycemic drugs; Z79.891 Long term (current) use of opiate analgesic; Z79.899 Other long term (current) drug therapy; Z72.0 Tobacco use
CPT/HCPCS: 81001; 87077; 87086; 87186; 96372; 99283; J0696

== ENCOUNTER 2023-12-21 17:28 | Emergency (ER) | payer OTHER ==
--- NOTE | 2023-12-21 17:30 | ERPHSYRPT ---
<JAJA ADAME - Last Filed: 12/21/23 19:14> - History of Present Illness Time Seen by Provider: 12/21/23 17:30 Historian: patient Exam Limitations: no limitations Physician History: This is an overweight 53-year-old white female patient who states that she was in [place] when suddenly she began having sharp pain in the left axilla w hich radiated to her left chest/breast. Patient has a significant history of coronary artery disease with cardiac catheterization and stent placement, tobacco abuse, hyperlipidemia, hypertension and diabetes. Patient is not short of breath. She has no nausea vomiting symptoms. She does not have a cough. She has not had a fever. Timing/Duration: today Activities at Onset: activity (Walking) Quality: sharpness, stabbing Location: other (Axilla into the left chest) Severity of Pain-Max: mild (To moderate) Severity of Pain-Current: mild Modifying Factors: Improves With: nothing Associated Symptoms: denies symptoms Prior Chest Pain/Cardiac Workup: cardiac cath Nitro Today/Relief: no nitro taken today Aspirin Treatment Today: 81 mg x 1, provided at home Allergies/Adverse Reactions: meperidine [From Demerol] Allergy (Intermediate, Verified 06/22/23 05:08) Hives morphine Adverse Reaction (Severe, Verified 06/22/23 05:08) Swelling of Tongue and Lips burning, no rash Home Medications: Duloxetine HCl [Cymbalta] 60 mg PO DAILY 09/24/15 [History] hydroCHLOROthiazide [Hydrochlorothiazide] 12.5 mg PO DAILY 01/25/23 [History] Metformin HCl 500 mg [Glucophage 500 MG] 500 mg PO BID 02/19/23 [History] Trazodone HCl 100 mg PO HS 04/13/23 [History] Aspirin EC 81 mg [Ecotrin 81 mg] 81 mg PO DAILY 06/22/23 [History] Atorvastatin Calcium 20 mg PO DAILY 06/22/23 [History] Furosemide 20 mg [Lasix 20 mg] 20 mg PO DAILY 06/22/23 [History] Pramipexole Di-HCl [Pramipexole Dihydrochloride] 0 mg PO UD 06/22/23 [History] terbinafine HCL [Terbinafine HCl] 250 mg PO DAILY 06/22/23 [History] ziprasidone HCL [Ziprasidone HCl] 20 mg PO DAILY 06/22/23 [History] ziprasidone HCL [Ziprasidone HCl] 40 mg PO HS 06/22/23 [History] Lisinopril 10 mg [Zestril 10 MG] 10 mg PO DAILY 12/21/23 [History] Prednisone 20 mg [Deltasone 20 mg] 20 mg PO DAILY 12/21/23 [History] Hx Tetanus, Diphtheria Vaccination/Date Given: Yes Hx Influenza Vaccination/Date Given: Yes Hx Pneumococcal Vaccination/Date Given: No Travel Risk - International Travel Have you traveled outside of the country in past 3 weeks: No - Emerging Infectious Disease Are you exhibiting symptoms associated with any current EIDs: No - Review of Systems Constitutional: No Symptoms Eyes: No Symptoms Ears, Nose, & Throat: No Symptoms Respiratory: No Symptoms Cardiac: Chest Pain Abdominal/Gastrointestinal: No Symptoms Genitourinary Symptoms: No Symptoms Musculoskeletal: No Symptoms Skin: No Symptoms Neurological: No Symptoms Psychological: No Symptoms Endocrine: No Symptoms Hematologic/Lymphatic: No Symptoms Immunological/Allergic: No Symptoms All Other Systems: Reviewed and Negative - Past Medical History Pertinent Past Medical History: Yes Neurological History: Seizures, TIA ENT History: No Pertinent History Cardiac History: High Cholesterol, Hypertension, Myocardial Infarction ([place]) Respiratory History: COPD, Sleep Apnea, Other Endocrine Medical History: Diabetes Type II Musculoskeletal History: Osteoarthritis GI Medical History: No Pertinent History History: No Pertinent History Psycho-Social History: Depression Female Reproductive Disorders: No Pertinent History Other Medical History: 2 C-SECTIONS, O2 AT NIGHT, OA IN KNEE. PATIENT IS PRESENTLY TRYING TO GET ON DISABILITY. - Past Surgical History Past Surgical History: Yes Neuro Surgical History: No Pertinent History Cardiac: No Pertinent History, Cardiac Catheterization, Cardiac Stent Respiratory: No Pertinent History Gastrointestinal: Cholecystectomy Genitourinary: No Pertinent History Musculoskeletal: Orthopedic Surgery Female Surgical History: Section, Tubal Ligation Other Surgical History: hand surgery , BACK SUGERY- cyst removal - Female History Hx Last Menstrual Period: week ago - Social History Smoking Status: Current every day smoker How long have you smoked: 18yo Exposure to second hand smoke: Yes Drug Use: marijuana Patient Lives Alone: No - Social Determinants of Health Will the patient participate in the screening: Yes Do you worry about a steady place to live?: No In the past 12 months,have you had to go without utilities?: No Transportation Issues: No Has anyone in your support network made you feel unsafe?: No Have you or anyone in your house had to go without enough: Choose not to answer - Physical Exam General Appearance: no apparent distress, alert, anxiety, obese Ears, Nose, Throat Exam: normal ENT inspection, moist mucous membranes Neck Exam: normal inspection, non-tender, supple, full range of motion Respiratory Exam: normal breath sounds, chest tenderness, lungs clear (Left c hest), airway intact, No respiratory distress Cardiovascular Exam: regular rate/rhythm, normal heart sounds, normal peripheral pulses Gastrointestinal/Abdomen Exam: soft, normal bowel sounds, No tenderness Pelvic Exam: not done Rectal Exam: not done Back Exam: normal inspection, normal range of motion, No CVA tenderness, No vertebral tenderness Extremity Exam: normal inspection, normal range of motion, pelvis stable Neurologic Exam: alert, oriented x 3, cooperative, wireless architect II-XII nml as tested, nml cerebellar function, nml station & gait, sensation nml Skin Exam: normal color, warm, dry Lymphatic Exam: No adenopathy SpO2 Interpretation: normal O2 Delivery: Room Air - Course Nursing assessment & vital signs reviewed: Yes EKG Interpreted by Me: RATE (83), Sinus Rhythm, NORMAL AXIS, NORMAL INTERVALS, NORMAL QRS, Other (No acute ischemic changes on today's twelve-lead EKG. QTc was 431) - Progress Progress: improved, re-examined Air Movement: good Progress Note: 12/21/23 19:15 My medical decision making and the assignment of moderate to high complexity of this patient's medical issue today is based on review of the patient's past medical history, review of the patient's medication list, review the patient drug allergy list, history present illness and physical findings on examination. This patient's heart score is greater than 4. The workup in this patient includes placement of intravenous line, chest x-ray, D-dimer, troponin level, CBC, CMP, magnesium level, twelve-lead EKG. Differential diagnosis includes but is not limited to muscle skeletal pain, myocardial infarction, electrolyte abnormality, arrhythmia, pulmonary embolus, pneumonia I am transferring care of this patient to Dr. Prince at shift change. He will follow-up on pending studies and make final disposition. Blood Culture(s) Obtained: No Antibiotics given: No Medical Desision Making - Independent Historian Additional History obtained from: Family - Departure Departure Disposition: Observation Clinical Impression: Left-sided chest pain, ACS (acute coronary syndrome) Condition: Stable Critical Care Time: No Referrals: BALDEV CRUZ [Primary Care Provider] - Follow up/PCP as directed Additional Instructions: Discharge/Care Plan BRAN FRASER was seen on 12/21/23 in the Emergency Room. The patient was counseled regarding Diagnosis,Lab results, Imaging studies, need for follow up and when to return to the Emergency Room. Prescriptions given: Discharge Note I have spoken with the patient and/or caregivers. I have explained the patient's condition, diagnosis and treatment plan based on the information available to me at this time. I have answered the patient's and/or caregiver's questions and addressed any concerns. The patient and/or caregivers have as good understanding of the patient's diagnosis, condition and treatment plan as can be expected at this point. The vital signs have been stable. The patient's condition is stable and appropriate for discharge from the emergency department. The patient will pursue further outpatient evaluation with the primary care physician or other designated or consulting physician as outlined in the discharge instructions. The patient and/or caregivers are agreeable to this plan of care and follow-up instructions have been explained in detail. The patient and/or caregivers have received these instruction. The patient/and or caregivers are aware that any significant change in condition or worsening of symptoms should prompt an immediate return to this or the closest emergency department or call 911. <LINCOLN PRINCE - Last Filed: 12/21/23 21:37> - History of Present Illness Physician History: 53-year-old female presents to our emergency department for evaluation of chest pain. Patient has a significant cardiovascular history including [place] diabetes coronary artery disease. - Nursing Vital Signs Nursing Vital Signs: Initial Vital Signs Temperature 97.4 F 12/21/23 17:28 Pulse Rate 90 12/21/23 17:28 Respiratory Rate 20 12/21/23 17:28 Blood Pressure 168/87 12/21/23 17:28 O2 Sat by Pulse Oximetry 93 L 12/21/23 17:28 Pain Scale Pain Intensity 4 Ordered Tests: Active Orders 24 hr Category Date Time Status AMA [Release AMA] OM.NOW Care 12/21/23 21:29 Active Telephone Solicitor STAT Care 12/21/23 17:51 Active EKG-ER Only STAT Care 12/21/23 17:51 Active IV Insertion STAT Care 12/21/23 17:51 Active Pulse Oximetry (ED) STAT Care 12/21/23 17:51 Active CHEST 1 VIEW (PORTABLE) Stat Exams 12/21/23 17:51 Taken CHEST WITH CONTRAST [CT] Stat Exams 12/21/23 19:13 Taken CBC W DIFF Stat Lab 12/21/23 18:00 Completed CMP Stat Lab 12/21/23 18:00 Received D-DIMER QUANTITATIVE Stat Lab 12/21/23 18:00 Completed MAGNESIUM Stat Lab 12/21/23 18:00 Received TROPONIN Q4H Lab 12/21/23 22:00 Ordered TROPONIN Q4H Lab 12/22/23 02:00 Ordered Medication Summary Discontinued Medications Generic Name Dose Route Start Last Admin Trade Name Freq PRN Reason Stop Dose Admin Aspirin 324 mg 12/21/23 17:51 12/21/23 18:27 Aspirin 81 Mg Tab.Chew PO 12/21/23 17:52 324 mg STAT ONE Administration Aspirin Confirm 12/21/23 18:27 Aspirin 81 Mg Tab.Chew Administered 12/21/23 18:28 Dose 324 mg .ROUTE .STK-MED ONE Lab/Rad Data: Laboratory Result Diagrams 12/21/23 18:00 12/21/23 18:00 Laboratory Results 12/21/23 12/21/23 12/21/23 Range/Units 18:00 18:00 18:00 WBC 8.9 (3.98-10.04) x10^3/uL RBC 5.02 (3.93-5.22) x10^6/uL Hgb 14.7 (11.2-15.7) g/dL Hct 43.0 (34.1-44.9) % MCV 85.7 (79.4-94.8) fL MCH 29.3 (25.6-32.2) pg MCHC 34.2 (32.2-35.5) g/dL RDW 12.4 (11.7-14.4) % Plt Count 266 (182-369) x10^3/uL MPV 10.0 (9.4-12.3) fL Gran % 58.9 (34.0-71.1) % Immature Gran % (Auto) 0.3 (0.001-0.429) % Nucleat RBC Rel Count 0.0 (0.00-0.2) % Eos # (Auto) 0.21 (0.04-0.36) x10^3/uL Immature Gran # (Auto) 0.03 (0.001-0.031) x10^3u/L Absolute Lymphs (auto) 2.52 (1.18-3.74) x10^3/uL Absolute Monos (auto) 0.83 (0.24-0.86) x10^3/uL Absolute Nucleated RBC 0.00 (0.00-0.012) x10^3u/L Lymphocytes % 28.3 (19.3-51.7) % Monocytes % 9.3 (4.7-12.5) % Eosinophils % 2.4 (0.7-5.8) % Basophils % 0.8 (0.1-1.2) % Absolute Granulocytes 5.25 (1.56-6.13) x10^3/uL Basophils # 0.07 (0.01-0.08) x10^3/uL D-Dimer 0.59 H (0.0-0.50) mg/L Sodium Direct 140 (138-146) mmol/L Potassium 3.8 (3.5-4.9) mmol/L Chloride 101 (98-109) mmol/L Carbon Dioxide 28 (24-29) mmol/L Venous BUN 13 (8-26) mg/dL Creatinine 0.9 (0.6-1.3) mg/dL Glucose 126 H (70-105) mg/dL Ionized Calcium 1.31 (1.12-1.32) mmol/L Troponin 0.00 (0.00-0.03) ng/mL - Progress Progress Note: 53-year-old female endorsed Dr. Prince at approximately [address] Prince advised to follow-up on CAT scan and to admit patient for further evaluation and treatment. Patient presented to our ED with left-sided chest pain. Patient has a significant cardiovascular history. CT chest negative for PE. No significant findings. In light of patient significant cardiovascular history patient requires hospitalization for cardiac rule out. However patient stated that she had other obligations and cannot stay. Patient decided to leave AMA. Patient is of sound mind. Patient is appropriate to make informed and independent medical decisions. Patient understands that leaving AGAINST MEDICAL ADVICE can result in delayed diagnosis, increased risk of morbidity, mortality, short and long-term disability including . In spite of these risks, patient has decided to leave AGAINST MEDICAL ADVICE. Patient understands that she may return to our ED at any point if she reconsiders. Patient agrees to follow-up with her primary care doctor within 48 hours for reevaluation. Patien t voices no other complaints or concerns at this time. We will release patient AGAINST MEDICAL ADVICE per their request. Portions of this note were created with voice recognition technology. There may be grammatical, spelling, punctuation or sound alike errors 12/21/23 21:35 - Departure Departure Disposition: AMA
[2023-12-21 17:35] VITALS: TEMP 97.4
[2023-12-21 18:13] LABS: Absolute Neutrophil Ct (ANC) 5.25 x10^3/uL (1.56-6.13); BASOPHIL % 0.8 % (0.1-1.2); Basophil (Absolute #) 0.07 x10^3/uL (0.01-0.08); Eosinophil % 2.4 % (0.7-5.8); Eosinophil (Absolute #) 0.21 x10^3/uL (0.04-0.36); Hemoglobin 14.7 g/dL (11.2-15.7); IMMATURE GRAN # 0.03 x10^3u/L (0.001-0.031); IMMATURE GRAN % 0.3 % (0.001-0.429); Lymphocyte (Absolute #) 2.52 x10^3/uL (1.18-3.74); Lymphocytes % 28.3 % (19.3-51.7); Mean Cell Volume 85.7 fL (79.4-94.8); Mean Corpuscular Hemoglobin 29.3 pg (25.6-32.2); Mean Corpuscular Hgb Concent. 34.2 g/dL (32.2-35.5); Monocyte (Absolute #) 0.83 x10^3/uL (0.24-0.86); Monocytes % 9.3 % (4.7-12.5); Neutrophil % 58.9 % (34.0-71.1); Platelet Count 266 x10^3/uL (182-369); Red Blood Count 5.02 x10^6/uL (3.93-5.22); Red Cell Distribution Width 12.4 % (11.7-14.4); White Blood Count 8.9 x10^3/uL (3.98-10.04)
[2023-12-21 18:25] LABS: ISTAT CREA 0.9 mg/dL (0.6-1.3); ISTAT K 3.8 mmol/L (3.5-4.9); ISTAT iCA 1.31 mmol/L (1.12-1.32)
[2023-12-21] MEDS ORDERED: BABY ASPIRIN 81 MG CHEW ONE (18:27)
[2023-12-21] MEDS: BABY ASPIRIN 81 MG CHEW PO ONE (18:27)
[2023-12-21 21:05] VITALS: BP 159/83; PULSE 72; RESP 15; O2SAT 98
[2023-12-21 22:14] LABS: ALBUMIN 4.4 g/dL (3.5-5.0); ANION GAP 12.7 MEQ/L (5-15); BILIRUBIN,TOTAL 0.3 mg/dL (0.2-1.3); Creatinine 1 0.88 mg/dL (0.52-1.04); EST GLOMERULAR FILTRATION RATE 79.5 ML/MIN; MAGNESIUM 2.1 mg/dL (1.6-2.3); Potassium 3.8 mmol/L (3.5-5.1); Total Protein 6.9 g/dL (6.3-8.2)
--- NOTE | 2023-12-22 09:06 | XRAY ---
Indication: Left chest pain. Comparison: March 10, 2023 Portable chest again demonstrates normal heart and lungs with incidental calcified granulomas. Bony thorax intact again with mild degenerative changes. No new/acute findings.
--- NOTE | 2023-12-22 09:06 | XRAY ---
Indication: Left chest pain. Elevated d-dimer. Multiple contiguous images obtained through the chest using 1 heart cc Isovue 370 contrast and PE protocol. Comparison: December 01, 2020 Good opacification pulmonary arteries including lobar and segmental branches. No pulmonary embolus. Heart not enlarged. Aorta is normal in course and caliber. Stable tiny subcarinal calcified nodes. No pathologic mediastinal/hilar lymphadenopathy. Lungs inflated with stable lingula calcified granuloma. No suspicious pulmonary mass/nodule, infiltrate, or effusion. Bony thorax intact again with mild degenerative changes throughout spine. Limited upper abdomen again demonstrates fatty liver and cholecystectomy clips. Impression: 1. Continued negative pulmonary embolus. No new/acute cardiopulmonary abnormalities. 2. Again chronic findings including degenerative spondylosis, fatty liver, and old granulomatous disease.
== END 2023-12-21 21:32 | disposition left against medical advice (07) ==
LOC: ED 17:28
DX: I24.9 Acute ischemic heart disease, unspecified (principal); R07.9 Chest pain, unspecified; I10 Essential (primary) hypertension; E78.5 Hyperlipidemia, unspecified; E11.9 Type 2 diabetes mellitus without complications; Z79.84 Long term (current) use of oral hypoglycemic drugs; Z79.899 Other long term (current) drug therapy; Z72.0 Tobacco use
CPT/HCPCS: 36000; 36415; 71045; 71260; 80047; 80053; 83735; 84484; 85025; 85379; 93005; 93041; 94760; 99284; A9270-GY

== ENCOUNTER 2024-04-10 23:18 | Observation (INO) | payer OTHER ==
[2024-04-10 23:49] LABS: Absolute Neutrophil Ct (ANC) 6.44 x10^3/uL (1.56-6.13); BASOPHIL % 0.8 % (0.1-1.2); Basophil (Absolute #) 0.09 x10^3/uL (0.01-0.08); Eosinophil % 2.6 % (0.7-5.8); Hemoglobin 16.2 g/dL (11.2-15.7); IMMATURE GRAN # 0.04 x10^3u/L (0.001-0.031); IMMATURE GRAN % 0.3 % (0.001-0.429); Lymphocyte (Absolute #) 3.78 x10^3/uL (1.18-3.74); Lymphocytes % 32.3 % (19.3-51.7); Mean Cell Volume 82.2 fL (79.4-94.8); Mean Corpuscular Hemoglobin 28.3 pg (25.6-32.2); Mean Corpuscular Hgb Concent. 34.5 g/dL (32.2-35.5); Mean Platelet Volume 9.9 fL (9.4-12.3); Monocyte (Absolute #) 1.04 x10^3/uL (0.24-0.86); Monocytes % 8.9 % (4.7-12.5); Neutrophil % 55.1 % (34.0-71.1); Platelet Count 312 x10^3/uL (182-369); Red Blood Count 5.72 x10^6/uL (3.93-5.22); Red Cell Distribution Width 12.4 % (11.7-14.4); White Blood Count 11.7 x10^3/uL (3.98-10.04)
[2024-04-10 23:59] LABS: ALBUMIN 4.8 g/dL (3.5-5.0); ANION GAP 9.6 MEQ/L (5-15); BILIRUBIN,TOTAL 0.6 mg/dL (0.2-1.3); Creatinine 1 0.84 mg/dL (0.52-1.04); EST GLOMERULAR FILTRATION RATE 84.1 ML/MIN; Potassium 3.2 mmol/L (3.5-5.1); Total Protein 8.1 g/dL (6.3-8.2)
[2024-04-11] MEDS ORDERED: Sterile H2O 10 ml IJ ONE (00:01)
[2024-04-11] MEDS: solu-MEDROL 125 MG, Sterile H2O 10 ml 2 ML IV ONE (00:01)
[2024-04-11] MEDS ORDERED: solu-MEDROL ONE (00:01)
[2024-04-11] MEDS ORDERED: PROVENTIL 2.5 MG/3 ML NEB IH ONE (00:10)
[2024-04-11] MEDS: PROVENTIL 2.5 MG/3 ML NEB IH ONE (00:13)
[2024-04-11 00:26] LABS: INFLUENZA A NEGATIVE (NEGATIVE); INFLUENZA B NEGATIVE (NEGATIVE); RESPIRATORY SYNCTIAL VIRUS NEGATIVE (NEGATIVE); SARS-CoV-2 Xpert Express NEGATIVE (NEGATIVE)
[2024-04-11] MEDS ORDERED: Klor Con ONE (01:13)
[2024-04-11] MEDS: Klor Con PO ONE (01:14)
--- NOTE | 2024-04-11 04:05 | ERPHSYRPT ---
- History of Present Illness Time Seen by Provider: 04/11/24 04:01 Source: patient Exam Limitations: no limitations Patient Subjective Stated Complaint: c/o chest pain and sob Triage Nursing Assessment: patient brought to ED by mother with c/o shortness of breath and chest pain. patient stated that she has had a cough for 3 months, coughing up white sputum. patient is a daily smoker and smokes marijuana at night. patient is rating chest pain 8/10 that radiates to her left shoulder. Adventious breath sounds, slightly hypertensive, tachycardic, 94% on RA, gait steady, patient doesn't appear to be in any distress at this time. Physician History: Patient is a 53-year-old female current smoker, history of COPD, diabetes [place] presents to our ED for evaluation of chest pain and shortness of breath. Patient states chest pain and shortness of breath started today. However she has been experiencing a cough for over 3 months. Pain described as an ache that tends to radiate to the left shoulder. No trauma no fever. No nausea vomiting or diaphoresis. Patient rates her pain 8 out of 10. Symptoms are constant. Symptoms are moderate in intensity. No specific worsening or improving factors. Patient otherwise feels well. She voices no other complaints or concerns at this time. Portions of this note were created with voice recognition technology. There may be grammatical, spelling, punctuation or sound alike errors Timing/Duration: today Activities at Onset: none Severity of Dyspnea-Max: moderate Possible Cause: occasional episodes Modifying Factors: Improves With: activity Associated Symptoms: cough Allergies/Adverse Reactions: meperidine [From Demerol] Allergy (Intermediate, Verified 04/10/24 23:36) Hives morphine Adverse Reaction (Severe, Verified 04/10/24 23:36) Swelling of Tongue and Lips burning, no rash Home Medications: Duloxetine HCl [Cymbalta] 60 mg PO DAILY 09/24/15 [History] hydroCHLOROthiazide [Hydrochlorothiazide] 12.5 mg PO DAILY 01/25/23 [History] Metformin HCl 500 mg [Glucophage 500 MG] 500 mg PO BID 02/19/23 [History] Trazodone HCl 100 mg PO HS 04/13/23 [History] Aspirin EC 81 mg [Ecotrin 81 mg] 81 mg PO DAILY 06/22/23 [History] Atorvastatin Calcium 20 mg PO DAILY 06/22/23 [History] Furosemide 20 mg [Lasix 20 mg] 20 mg PO DAILY 06/22/23 [History] Pramipexole Di-HCl [Pramipexole Dihydrochloride] 0 mg PO UD 06/22/23 [History] terbinafine HCL [Terbinafine HCl] 250 mg PO DAILY 06/22/23 [History] ziprasidone HCL [Ziprasidone HCl] 20 mg PO DAILY 06/22/23 [History] ziprasidone HCL [Ziprasidone HCl] 40 mg PO HS 06/22/23 [History] Lisinopril 10 mg [Zestril 10 MG] 10 mg PO DAILY 12/21/23 [History] Prednisone 20 mg [Deltasone 20 mg] 20 mg PO DAILY 12/21/23 [History] Hx Tetanus, Diphtheria Vaccination/Date Given: Yes Hx Influenza Vaccination/Date Given: Yes Hx Pneumococcal Vaccination/Date Given: No Travel Risk - International Travel Have you traveled outside of the country in past 3 weeks: No - Emerging Infectious Disease Are you exhibiting symptoms associated with any current EIDs: Yes Symptoms: Shortness of Breath - Review of Systems Constitutional: No Symptoms, No Fever, No Chills Eyes: No Symptoms Ears, Nose, & Throat: No Symptoms Respiratory: No Symptoms, No Cough, No Dyspnea Cardiac: No Symptoms, No Chest Pain, No Edema, No Syncope Abdominal/Gastrointestinal: No Symptoms, No Abdominal Pain, No Nausea, No Vomiting, No Diarrhea Genitourinary Symptoms: No Symptoms, No Dysuria Musculoskeletal: No Symptoms, No Back Pain, No Neck Pain Skin: No Symptoms, No Rash Neurological: No Symptoms, No Dizziness, No Focal Weakness, No Sensory Changes Psychological: No Symptoms Endocrine: No Symptoms Hematologic/Lymphatic: No Symptoms Immunological/Allergic: No Symptoms All Other Systems: Reviewed and Negative - Past Medical History Pertinent Past Medical History: Yes Neurological History: Seizures, TIA ENT History: No Pertinent History Cardiac History: High Cholesterol, Hypertension, Myocardial Infarction ([place]) Respiratory History: COPD, Sleep Apnea, Other Endocrine Medical History: Diabetes Type II Musculoskeletal History: Osteoarthritis GI Medical History: No Pertinent History History: No Pertinent History Psycho-Social History: Depression Female Reproductive Disorders: No Pertinent History Other Medical History: 2 C-SECTIONS, O2 AT NIGHT, OA IN KNEE. PATIENT IS PRESENTLY TRYING TO GET ON DISABILITY. 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 - Past Surgical History Past Surgical History: Yes Neuro Surgical History: No Pertinent History Cardiac: No Pertinent History, Cardiac Catheterization, Cardiac Stent Respiratory: No Pertinent History Gastrointestinal: Cholecystectomy Genitourinary: No Pertinent History Musculoskeletal: Orthopedic Surgery Female Surgical History: Section, Tubal Ligation Other Surgical History: hand surgery , BACK SUGERY- cyst removal - Female History Hx Last Menstrual Period: 5 years ago Hx Now: No - Social History Smoking Status: Current every day smoker How long have you smoked: 18yo Exposure to second hand smoke: No Drug Use: marijuana Patient Lives Alone: No - Social Determinants of Health Will the patient participate in the screening: Yes Do you worry about a steady place to live?: No Do you have any problems with any of the following?: No known problems In the past 12 months,have you had to go without utilities?: No Transportation Issues: No Has anyone in your support network made you feel unsafe?: No Have you or anyone in your house had to go without enough: No - Nursing Vital Signs Nursing Vital Signs: Initial Vital Signs Pulse Rate 98 H 04/10/24 23:20 Respiratory Rate 26 H 04/10/24 23:20 Blood Pressure 172/116 04/10/24 23:20 O2 Sat by Pulse Oximetry 94 L 04/10/24 23:20 Pain Scale Pain Intensity 8 - Physical Exam General Appearance: no apparent distress, alert Eye Exam: PERRL/EOMI Ears, Nose, Throat Exam: hearing grossly normal Neck Exam: normal inspection, supple Respiratory Exam: diminished breath sounds, rhonchi, wheezing Cardiovascular/Chest Exam: normal heart sounds, regular rate/rhythm Abdominal/Gastrointestinal Exam: soft, No tenderness, No distention, No mass Extremity Exam: non-tender, normal range of motion, normal inspection, no calf tenderness, no pedal edema Neurologic Exam: alert, oriented x 3, cooperative, afternoon babysitter II-XII nml as tested, sensation nml, No motor deficits Skin Exam: normal color, warm, No dry Lymphatic Exam: No adenopathy SpO2 Interpretation: normal SpO2: 94 O2 Delivery: Room Air - Course Nursing assessment & vital signs reviewed: Yes EKG Interpreted by Me: RATE (96), Sinus Rhythm, NORMAL AXIS, NORMAL INTERVALS, NORMAL QRS - Radiology Exams Chest X-ray Interpretation: Interpreted by me (No acute findings) Ordered Tests: Active Orders 24 hr Category Date Time Status Lift Slab Operator STAT Care 04/10/24 23:36 Active EKG-ER Only STAT Care 04/10/24 23:35 Active IV Insertion STAT Care 04/10/24 23:35 Active Pulse Oximetry (ED) STAT Care 04/10/24 23:35 Active CHEST 1 VIEW (PORTABLE) Stat Exams 04/11/24 04:23 Taken CBC W DIFF Stat Lab 04/10/24 23:35 Completed CMP Stat Lab 04/10/24 23:45 Completed D-DIMER QUANTITATIVE Stat Lab 04/10/24 23:45 Completed TROPONIN Q4H Lab 04/10/24 23:45 Completed TROPONIN Q4H Lab 04/11/24 03:15 Completed TROPONIN Q4H Lab 04/11/24 07:45 Ordered Respiratory Therapy Assessment DAILY RT 04/11/24 00:16 Active Transfer Order Routine Transfer 04/11/24 Ordered Medication Summary Generic Name Dose Route Start Last Admin Trade Name Freq PRN Reason Stop Dose Admin Azithromycin 500 mg in 250 mls @ 250 mls/hr 04/11/24 04:21 Zithromax 500 Mg/ 250 Ml Nacl Premix IV 04/11/24 05:20 STAT STA Magnesium Sulfate/Dextrose 100 mls @ 100 mls/hr 04/11/24 04:30 04/11/24 04:39 Magnesium 1 Gm / 100 Ml D5w IV 04/11/24 06:29 100 mls/hr Q1H KALIE Administration Discontinued Medications Generic Name Dose Route Start Last Admin Trade Name Freq PRN Reason Stop Dose Admin Albuterol Sulfate 2.5 mg 04/10/24 23:58 04/11/24 00:13 Albuterol Sulfate 2.5 Mg/3 Ml Neb IH 04/10/24 23:59 2.5 mg STAT ONE Administration Albuterol Sulfate Confirm 04/11/24 00:10 Albuterol Sulfate 2.5 Mg/3 Ml Neb Administered 04/11/24 00:11 Dose 2.5 mg IH .STK-MED ONE Aspirin 324 mg 04/11/24 04:22 04/11/24 04:33 Aspirin 81 Mg Tab.Chew PO 04/11/24 04:23 324 mg STAT ONE Administration Aspirin Confirm 04/11/24 04:32 Aspirin 81 Mg Tab.Chew Administered 04/11/24 04:33 Dose 324 mg .ROUTE .STK-MED ONE Methylprednisolone Sodium 0 mg 04/10/24 23:58 04/11/24 00:01 Succinate 125 mg/ Sterile IV 04/10/24 23:59 125 mg Water 2 ml STAT ONE Administration Ceftriaxone Sodium 1 gm in 100 mls @ 200 mls/hr 04/11/24 04:21 04/11/24 04:33 Rocephin 1 Gm / 100 Ml Nacl IV 04/11/24 04:50 200 mls/hr STAT ONE 200 mls/hr Administration Ceftriaxone Sodium Confirm 04/11/24 04:32 Rocephin 1 Gm / 100 Ml Nacl Administered 04/11/24 04:33 Dose 1 gm in 100 mls @ ud IV .STK-MED ONE Methylprednisolone Sodium Succinate Confirm 04/11/24 00:01 Methylprednis Sod Succ 125 Mg/2 Ml Vial Administered 04/11/24 00:02 Dose 125 mg .ROUTE .STK-MED ONE Nitroglycerin 1 gm 04/11/24 04:22 Nitroglycerin 1 Gm Packet TOP 04/11/24 04:23 STAT ONE Nitroglycerin Confirm 04/11/24 04:46 Nitroglycerin 1 Gm Packet Administered 04/11/24 04:47 Dose 1 gm .ROUTE .STK-MED ONE Potassium Chloride 40 meq 04/11/24 00:57 04/11/24 01:14 Potassium Chloride Tab 10 Meq Tab PO 04/11/24 00:58 40 meq STAT ONE Administration Potassium Chloride Confirm 04/11/24 01:13 Potassium Chloride Tab 10 Meq Tab Administered 04/11/24 01:14 Dose 40 meq .ROUTE .STK-MED ONE Sterile Water Confirm 04/11/24 00:01 Water For Injection,Sterile 10 Ml Vial Administered 04/11/24 00:02 Dose 10 ml IJ .STK-MED ONE Lab/Rad Data: Laboratory Result Diagrams 04/10/24 23:35 04/10/24 23:45 Laboratory Results 04/11/24 04/10/24 04/10/24 Range/Units 03:15 Unknown 23:55 WBC (3.98-10.04) x10^3/uL RBC (3.93-5.22) x10^6/uL Hgb (11.2-15.7) g/dL Hct (34.1-44.9) % MCV (79.4-94.8) fL MCH (25.6-32.2) pg MCHC (32.2-35.5) g/dL RDW (11.7-14.4) % Plt Count (182-369) x10^3/uL MPV (9.4-12.3) fL Gran % (34.0-71.1) % Immature Gran % (Auto) (0.001-0.429) % Nucleat RBC Rel Count (0.00-0.2) % Eos # (Auto) (0.04-0.36) x10^3/uL Immature Gran # (Auto) (0.001-0.031) x10^3u/L Absolute Lymphs (auto) (1.18-3.74) x10^3/uL Absolute Monos (auto) (0.24-0.86) x10^3/uL Absolute Nucleated RBC (0.00-0.012) x10^3u/L Lymphocytes % (19.3-51.7) % Monocytes % (4.7-12.5) % Eosinophils % (0.7-5.8) % Basophils % (0.1-1.2) % Absolute Granulocytes (1.56-6.13) x10^3/uL Basophils # (0.01-0.08) x10^3/uL D-Dimer (0.0-0.50) mg/L Sodium (135-145) mmol/L Potassium (3.5-5.1) mmol/L Chloride (98-107) mmol/L Carbon Dioxide (22-30) mmol/L Anion Gap (5-15) MEQ/L BUN (7-17) mg/dL Creatinine (0.52-1.04) mg/dL Estimated GFR ML/MIN Glucose (74-106) mg/dL Calcium (8.4-10.2) mg/dL Total Bilirubin (0.2-1.3) mg/dL AST (14-36) U/L ALT (0-35) U/L Alkaline Phosphatase (38-126) U/L Troponin I < 0.012 (0.000-0.033) ng/mL NT-Pro-B Natriuret Pep < 20.0 (<300) pg/mL Serum Total Protein (6.3-8.2) g/dL Albumin (3.5-5.0) g/dL Influenza Type A Ag (NEGATIVE) Influenza Type B Ag (NEGATIVE) RSV (PCR) (NEGATIVE) SARS-CoV-2 (PCR) (NEGATIVE) Group A Strep Antibody NOT DETECTED (NEGATIVE) 04/10/24 04/10/24 04/10/24 Range/Units 23:55 23:45 23:45 WBC (3.98-10.04) x10^3/uL RBC (3.93-5.22) x10^6/uL Hgb (11.2-15.7) g/dL Hct (34.1-44.9) % MCV (79.4-94.8) fL MCH (25.6-32.2) pg MCHC (32.2-35.5) g/dL RDW (11.7-14.4) % Plt Count (182-369) x10^3/uL MPV (9.4-12.3) fL Gran % (34.0-71.1) % Immature Gran % (Auto) (0.001-0.429) % Nucleat RBC Rel Count (0.00-0.2) % Eos # (Auto) (0.04-0.36) x10^3/uL Immature Gran # (Auto) (0.001-0.031) x10^3u/L Absolute Lymphs (auto) (1.18-3.74) x10^3/uL Absolute Monos (auto) (0.24-0.86) x10^3/uL Absolute Nucleated RBC (0.00-0.012) x10^3u/L Lymphocytes % (19.3-51.7) % Monocytes % (4.7-12.5) % Eosinophils % (0.7-5.8) % Basophils % (0.1-1.2) % Absolute Granulocytes (1.56-6.13) x10^3/uL Basophils # (0.01-0.08) x10^3/uL D-Dimer 0.42 (0.0-0.50) mg/L Sodium (135-145) mmol/L Potassium (3.5-5.1) mmol/L Chloride (98-107) mmol/L Carbon Dioxide (22-30) mmol/L Anion Gap (5-15) MEQ/L BUN (7-17) mg/dL Creatinine (0.52-1.04) mg/dL Estimated GFR ML/MIN Glucose (74-106) mg/dL Calcium (8.4-10.2) mg/dL Total Bilirubin (0.2-1.3) mg/dL AST (14-36) U/L ALT (0-35) U/L Alkaline Phosphatase (38-126) U/L Troponin I < 0.012 (0.000-0.033) ng/mL NT-Pro-B Natriuret Pep (<300) pg/mL Serum Total Protein (6.3-8.2) g/dL Albumin (3.5-5.0) g/dL Influenza Type A Ag NEGATIVE (NEGATIVE) Influenza Type B Ag NEGATIVE (NEGATIVE) RSV (PCR) NEGATIVE (NEGATIVE) SARS-CoV-2 (PCR) NEGATIVE (NEGATIVE) Group A Strep Antibody (NEGATIVE) 04/10/24 04/10/24 Range/Units 23:45 23:35 WBC 11.7 H (3.98-10.04) x10^3/uL RBC 5.72 H (3.93-5.22) x10^6/uL Hgb 16.2 H (11.2-15.7) g/dL Hct 47.0 H (34.1-44.9) % MCV 82.2 (79.4-94.8) fL MCH 28.3 (25.6-32.2) pg MCHC 34.5 (32.2-35.5) g/dL RDW 12.4 (11.7-14.4) % Plt Count 312 (182-369) x10^3/uL MPV 9.9 (9.4-12.3) fL Gran % 55.1 (34.0-71.1) % Immature Gran % (Auto) 0.3 (0.001-0.429) % Nucleat RBC Rel Count 0.0 (0.00-0.2) % Eos # (Auto) 0.30 (0.04-0.36) x10^3/uL Immature Gran # (Auto) 0.04 H (0.001-0.031) x10^3u/L Absolute Lymphs (auto) 3.78 H (1.18-3.74) x10^3/uL Absolute Monos (auto) 1.04 H (0.24-0.86) x10^3/uL Absolute Nucleated RBC 0.00 (0.00-0.012) x10^3u/L Lymphocytes % 32.3 (19.3-51.7) % Monocytes % 8.9 (4.7-12.5) % Eosinophils % 2.6 (0.7-5.8) % Basophils % 0.8 (0.1-1.2) % Absolute Granulocytes 6.44 H (1.56-6.13) x10^3/uL Basophils # 0.09 H (0.01-0.08) x10^3/uL D-Dimer (0.0-0.50) mg/L Sodium 136 (135-145) mmol/L Potassium 3.2 L (3.5-5.1) mmol/L Chloride 97 L (98-107) mmol/L Carbon Dioxide 32 H (22-30) mmol/L Anion Gap 9.6 (5-15) MEQ/L BUN 10 (7-17) mg/dL Creatinine 0.84 (0.52-1.04) mg/dL Estimated GFR 84.1 ML/MIN Glucose 128 H (74-106) mg/dL Calcium 10.0 (8.4-10.2) mg/dL Total Bilirubin 0.60 (0.2-1.3) mg/dL AST 26 (14-36) U/L ALT 23 (0-35) U/L Alkaline Phosphatase 81 (38-126) U/L Troponin I (0.000-0.033) ng/mL NT-Pro-B Natriuret Pep (<300) pg/mL Serum Total Protein 8.1 (6.3-8.2) g/dL Albumin 4.8 (3.5-5.0) g/dL Influenza Type A Ag (NEGATIVE) Influenza Type B Ag (NEGATIVE) RSV (PCR) (NEGATIVE) SARS-CoV-2 (PCR) (NEGATIVE) Group A Strep Antibody (NEGATIVE) - Progress Progress: improved Air Movement: good Progress Note: 53-year-old female with a history of cardiovascular disease [place] COPD presents to our ED for evaluation of chest pain and shortness of breath. Chest pain tends to radiate down her left arm. Physical exam reveals coarse breath sounds diminished with expiratory wheezes. Workup reveals a potassium of 3.2. Patient received oral potassium replacement along with magnesium. EKG sinus rhythm. D-dimer negative. Troponin negative x 2. Flu RSV COVID-negative. Rapid strep negative. Patient reassessed. Chest pain improved. However she is still short of breath. In light of patient's risk factors patient will be admitted for cardiac rule out. Plan of care discussed with patient. She agrees to admission at [facility][1] for further evaluation and treatment. Patient's mother is at the bedside. They voiced no other complaints or concerns at this time. Portions of this note were created with voice recognition technology. There may be grammatical, spelling, punctuation or sound alike errors Complexity of problem addressed is moderate acute complicated. No critical care time. Complex of data reviewed and analyzed is extensive. Test ordered chest reviewed results analyzed and correlated clinically with history and physical exam. Management discussed with hospitalist accepts admission to observation at 4:47 AM. Risk of complication and or risk of morbidity/mortality of patient management is high. Vital stable. Time spent to admit patient is approximately 15 minutes. Plan of care established for shared decision making. No social determinants of health present to impede follow-up. Portions of this note were created with voice recognition technology. There may be grammatical, spelling, punctuation or sound alike errors 04/11/24 04:56 04/11/24 04:58 Blood Culture(s) Obtained: Yes Antibiotics given: No Counseled pt/family regarding: lab results, diagnosis, rad results - Departure Departure Disposition: Observation Clinical Impression: Chest pain, ACS (acute coronary syndrome), Shortness of breath, Hypokalemia, COPD exacerbation Condition: Stable Critical Care Time: No Referrals: BALDEV CRUZ [Primary Care Provider] - Follow up/PCP as directed Instructions: Chronic Obstructive Pulmonary Disease
[2024-04-11] MEDS ORDERED: ROCEPHIN 1 GM / 100 ML NaCl 1 GM/100 ML IVPB IV ONE (04:32)
[2024-04-11] MEDS ORDERED: BABY ASPIRIN 81 MG CHEW ONE (04:32)
[2024-04-11] MEDS: BABY ASPIRIN 81 MG CHEW PO ONE (04:33)
[2024-04-11] MEDS: ROCEPHIN 1 GM / 100 ML NaCl 1 GM/100 ML IVPB IV ONE (04:33)
[2024-04-11] MEDS: Magnesium 1 Gm / 100 Ml D5W*** 100 ML IV SCH (04:39)
[2024-04-11] MEDS ORDERED: NITRO-BID 2% UD PACKETS ONE (04:46)
[2024-04-11] MEDS: NITRO-BID 2% UD PACKETS TOP ONE (04:56)
[2024-04-11] MEDS ORDERED: Zithromax 500 MG/ 250 ML NaCl Premix 500 MG/250 ML IVPB IV ONE (05:13)
[2024-04-11] MEDS: Zithromax 500 MG/ 250 ML NaCl Premix 500 MG/250 ML IVPB IV STA (05:14)
[2024-04-11 05:42] LABS: Appearance Clear (Clear); Bacteria None Seen /HPF (None Seen); Bilirubin Negative (Negative); Blood Small (Negative); Epithelial Cells None Seen /HPF (None Seen); Glucose, Urine Negative (Negative); Hyaline Casts NONE SEEN /LPF (0-2); Ketones Negative (Negative); Leukocyte Esterase Negative (Negative); Nitrite Negative (Negative); Ph 6.5 (4.6-8.0); Protein,Urine Dip Negative (Negative); RBC 0-2 /HPF (0-5); Specific Gravity <=1.005 (1.005-1.030); Urobilinogen 0.2 mg/dL (0.2); WBC 0-2 /HPF (0-5)
--- NOTE | 2024-04-11 05:58 | PCM.HP ---
History of Present Illness - Chief Complaint Chief Complaint: Chest pain, ACS, COPD exacerbation Date: 04/11/24 History of Present Illness: 53 years old very pleasant lady with past medical history significant for COPD, using 3 liter oxygen at night only, diabetes mellitus type 2, hypertension, coronary artery disease status post stent 15 years ago, prior history of TIA, congestive heart failure, bipolar disorder who came to ER complaining of chest pain that started since yesterday. Patient told me she has been struggling with her COPD and got treated twice in the last 2 months with steroids and antibiotics. She keeps having dry cough that really bothering her. Since yesterday he started having chest pain radiating to her left arm but not to the jaw and neck area. She she told me it is burning-like. She did report having a history of gastroesophageal reflux. Her last stress test was 6 months ago. She further told me her cough is little bit better but not whole lot. She is currently on 5 L oxygen to keep her sats more than 90%. In the ER the lab workup was essentially unremarkable except hypokalemia, first set of troponin negative and so does BNP, she is getting admitted to rule out ACS, and hopefully will do cardiology evaluation stress test in the morning - Review of Systems All Other Systems: Reviewed and Negative Medications & Allergies Home Medications: Home Medication List Duloxetine HCl [Cymbalta] 60 mg PO DAILY 09/24/15 [History Confirmed 04/11/24] hydroCHLOROthiazide [Hydrochlorothiazide] 12.5 mg PO DAILY 01/25/23 [History Confirmed 04/11/24] Metformin HCl 500 mg [Glucophage 500 MG] 500 mg PO BID 02/19/23 [History Confirmed 04/11/24] Trazodone HCl 100 mg PO HS 04/13/23 [History Confirmed 04/11/24] Aspirin EC 81 mg [Ecotrin 81 mg] 81 mg PO DAILY 06/22/23 [History Confirmed 04/11/24] Atorvastatin Calcium 20 mg PO DAILY 06/22/23 [History Confirmed 04/11/24] Furosemide 20 mg [Lasix 20 mg] 20 mg PO DAILY 06/22/23 [History Confirmed 04/11/24] terbinafine HCL [Terbinafine HCl] 250 mg PO DAILY 06/22/23 [History Confirmed 04/11/24] ziprasidone HCL [Ziprasidone HCl] 20 mg PO DAILY 06/22/23 [History Confirmed 04/11/24] ziprasidone HCL [Ziprasidone HCl] 40 mg PO HS 06/22/23 [History Confirmed 04/11/24] Cyanocobalamin (Vitamin B-12) [Vitamin B12] 1,000 mcg PO DAILY 04/11/24 [History Confirmed 04/11/24] Lisinopril 20 mg [Zestril 20 MG] 20 mg PO DAILY 04/11/24 [History Confirmed 04/11/24] Omeprazole 20 mg PO DAILY 04/11/24 [History Confirmed 04/11/24] methocarbamoL [Methocarbamol] 500 mg PO BID 04/11/24 [History Confirmed 04/11/24] Allergies/Adverse Reactions: Allergies Allergy/AdvReac Type Severity Reaction Status Date / Time meperidine [From Demerol] Allergy Intermediate Hives Verified 04/10/24 23:36 morphine AdvReac Severe Swelling Verified 04/10/24 23:36 of Tongue and Lips - Past Medical History Past Medical History: Yes Neurological History: Seizures, TIA ENT History: No Pertinent History Cardiac History: High Cholesterol, Hypertension, Myocardial Infarction ([place]) Respiratory History: COPD, Sleep Apnea, Other Endocrine Medical History: Diabetes Type II Musculoskelatal History: Osteoarthritis GI Medical History: No Pertinent History History: No Pertinent History Pyscho-Social History: Depression Reproductive Disorders: No Pertinent History Comment: 2 C-SECTIONS, O2 AT NIGHT, OA IN KNEE. PATIENT IS PRESENTLY TRYING TO GET ON DISABILITY. 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 - Female History Hx Last Menstrual Period: 5 years ago Are you now?: No - Past Surgical History Past Surgical History: Yes Neuro Surgical History: No Pertinent History Cardiac History: No Pertinent History, Cardiac Catheterization, Cardiac Stent Respiratory Surgery: No Pertinent History GI Surgical History: Cholecystectomy Genitourinary Surgical Hx: No Pertinent History Musculskeletal Surgical Hx: Orthopedic Surgery Female Surgical History: Section, Tubal Ligation Other Surgical History: hand surgery , BACK SUGERY- cyst removal Significant Family History: no pertinent family hx - Social History Smoking Status: Current every day smoker How long have you smoked: 18yo Exposure to second hand smoke: No Alcohol: Occasionally Drug Use: marijuana - Social Determinants of Health Will the patient participate in the screening: Yes Do you worry about a steady place to live?: No Do you have any problems with any of the following?: No known problems In the past 12 months,have you had to go without utilities?: No Have you or anyone in your house had to go without enough: No Transportation Issues: No Has anyone in your support network made you feel unsafe?: No Does the patient want assistance with any of the above?: Yes Comment: CAR BROKE DOWN- BORROWING BOYFRIENDS DADS CAR - OK WITH ASSISTANCE IF AVAILABLE - Physical Exam Vital Signs: Vital Signs - 24 hr Temp Pulse Resp BP BP Pulse Ox 04/11/24 05:00 85 17 112/71 96 04/11/24 04:59 94 L 04/11/24 04:38 94 H 20 125/81 96 04/11/24 03:00 94 H 20 169/106 94 L 04/11/24 02:30 98 H 15 135/88 92 L 04/11/24 02:00 92 H 25 H 150/100 92 L 04/11/24 01:30 93 H 19 143/90 92 L 04/11/24 01:01 100 H 12 153/84 91 L 04/11/24 00:30 100 H 15 124/79 95 04/11/24 00:20 87 21 99 04/11/24 00:13 93 H 20 94 L 04/11/24 00:10 91 H 21 94 L 04/11/24 00:03 88 16 93 L 04/10/24 23:42 94 L 04/10/24 23:30 92 H 17 173/87 94 L 04/10/24 23:23 97.2 F 102 H 15 172/116 85 L 04/10/24 23:20 98 H 26 H 172/116 94 L Additional Findings: 04/11/24 05:56 HEENT Young aged, average built in no distress NECK Supple,no thyromegaly, CVS S1+S2 + 0, no murmers RESP Bilateral equal air entry without Wheezes heard GIT Soft non tender,non distended Skin, No rah, no Bruises LEGS No Edema PSYCH Normal,mood, judgement and insight NEURO AOX3, no focal deficit Results - Labs Lab/Micro Results: Lab Results-Last 24 Hours 04/10/24 04/10/24 04/10/24 Range/Units 23:35 23:45 23:45 WBC 11.7 H (3.98-10.04) x10^3/uL RBC 5.72 H (3.93-5.22) x10^6/uL Hgb 16.2 H (11.2-15.7) g/dL Hct 47.0 H (34.1-44.9) % MCV 82.2 (79.4-94.8) fL MCH 28.3 (25.6-32.2) pg MCHC 34.5 (32.2-35.5) g/dL RDW 12.4 (11.7-14.4) % Plt Count 312 (182-369) x10^3/uL MPV 9.9 (9.4-12.3) fL Gran % 55.1 (34.0-71.1) % Immature Gran % (Auto) 0.3 (0.001-0.429) % Nucleat RBC Rel Count 0.0 (0.00-0.2) % Eos # (Auto) 0.30 (0.04-0.36) x10^3/uL Immature Gran # (Auto) 0.04 H (0.001-0.031) x10^3u/L Absolute Lymphs (auto) 3.78 H (1.18-3.74) x10^3/uL Absolute Monos (auto) 1.04 H (0.24-0.86) x10^3/uL Absolute Nucleated RBC 0.00 (0.00-0.012) x10^3u/L Lymphocytes % 32.3 (19.3-51.7) % Monocytes % 8.9 (4.7-12.5) % Eosinophils % 2.6 (0.7-5.8) % Basophils % 0.8 (0.1-1.2) % Absolute Granulocytes 6.44 H (1.56-6.13) x10^3/uL Basophils # 0.09 H (0.01-0.08) x10^3/uL D-Dimer 0.42 (0.0-0.50) mg/L Sodium 136 (135-145) mmol/L Potassium 3.2 L (3.5-5.1) mmol/L Chloride 97 L (98-107) mmol/L Carbon Dioxide 32 H (22-30) mmol/L Anion Gap 9.6 (5-15) MEQ/L BUN 10 (7-17) mg/dL Creatinine 0.84 (0.52-1.04) mg/dL Estimated GFR 84.1 ML/MIN Glucose 128 H (74-106) mg/dL Calcium 10.0 (8.4-10.2) mg/dL Total Bilirubin 0.60 (0.2-1.3) mg/dL AST 26 (14-36) U/L ALT 23 (0-35) U/L Alkaline Phosphatase 81 (38-126) U/L Troponin I (0.000-0.033) ng/mL NT-Pro-B Natriuret Pep (<300) pg/mL Serum Total Protein 8.1 (6.3-8.2) g/dL Albumin 4.8 (3.5-5.0) g/dL Urine Color (Yellow) Urine Appearance (Clear) Urine pH (4.6-8.0) Ur Specific [place] (1.005-1.030) Urine Protein (Negative) Urine Glucose (UA) (Negative) mg/dL Urine Ketones (Negative) Urine Blood (Negative) Urine Nitrite (Negative) Urine Bilirubin (Negative) Urine Urobilinogen (0.2) mg/dL Ur Leukocyte Esterase (Negative) U Hyaline Cast (Auto) (0-2) /LPF Urine Microscopic RBC (0-5) /HPF Urine Microscopic WBC (0-5) /HPF Ur Epithelial Cells (None Seen) /HPF Urine Bacteria (None Seen) /HPF Urine Culture Reflexed (NO) Influenza Type A Ag (NEGATIVE) Influenza Type B Ag (NEGATIVE) RSV (PCR) (NEGATIVE) SARS-CoV-2 (PCR) (NEGATIVE) Group A Strep Antibody (NEGATIVE) 04/10/24 04/10/24 04/10/24 Range/Units 23:45 23:55 23:55 WBC (3.98-10.04) x10^3/uL RBC (3.93-5.22) x10^6/uL Hgb (11.2-15.7) g/dL Hct (34.1-44.9) % MCV (79.4-94.8) fL MCH (25.6-32.2) pg MCHC (32.2-35.5) g/dL RDW (11.7-14.4) % Plt Count (182-369) x10^3/uL MPV (9.4-12.3) fL Gran % (34.0-71.1) % Immature Gran % (Auto) (0.001-0.429) % Nucleat RBC Rel Count (0.00-0.2) % Eos # (Auto) (0.04-0.36) x10^3/uL Immature Gran # (Auto) (0.001-0.031) x10^3u/L Absolute Lymphs (auto) (1.18-3.74) x10^3/uL Absolute Monos (auto) (0.24-0.86) x10^3/uL Absolute Nucleated RBC (0.00-0.012) x10^3u/L Lymphocytes % (19.3-51.7) % Monocytes % (4.7-12.5) % Eosinophils % (0.7-5.8) % Basophils % (0.1-1.2) % Absolute Granulocytes (1.56-6.13) x10^3/uL Basophils # (0.01-0.08) x10^3/uL D-Dimer (0.0-0.50) mg/L Sodium (135-145) mmol/L Potassium (3.5-5.1) mmol/L Chloride (98-107) mmol/L Carbon Dioxide (22-30) mmol/L Anion Gap (5-15) MEQ/L BUN (7-17) mg/dL Creatinine (0.52-1.04) mg/dL Estimated GFR ML/MIN Glucose (74-106) mg/dL Calcium (8.4-10.2) mg/dL Total Bilirubin (0.2-1.3) mg/dL AST (14-36) U/L ALT (0-35) U/L Alkaline Phosphatase (38-126) U/L Troponin I < 0.012 (0.000-0.033) ng/mL NT-Pro-B Natriuret Pep (<300) pg/mL Serum Total Protein (6.3-8.2) g/dL Albumin (3.5-5.0) g/dL Urine Color (Yellow) Urine Appearance (Clear) Urine pH (4.6-8.0) Ur Specific [place] (1.005-1.030) Urine Protein (Negative) Urine Glucose (UA) (Negative) mg/dL Urine Ketones (Negative) Urine Blood (Negative) Urine Nitrite (Negative) Urine Bilirubin (Negative) Urine Urobilinogen (0.2) mg/dL Ur Leukocyte Esterase (Negative) U Hyaline Cast (Auto) (0-2) /LPF Urine Microscopic RBC (0-5) /HPF Urine Microscopic WBC (0-5) /HPF Ur Epithelial Cells (None Seen) /HPF Urine Bacteria (None Seen) /HPF Urine Culture Reflexed (NO) Influenza Type A Ag NEGATIVE (NEGATIVE) Influenza Type B Ag NEGATIVE (NEGATIVE) RSV (PCR) NEGATIVE (NEGATIVE) SARS-CoV-2 (PCR) NEGATIVE (NEGATIVE) Group A Strep Antibody NOT DETECTED (NEGATIVE) 04/10/24 04/11/24 04/11/24 Range/Units Unknown 03:15 05:31 WBC (3.98-10.04) x10^3/uL RBC (3.93-5.22) x10^6/uL Hgb (11.2-15.7) g/dL Hct (34.1-44.9) % MCV (79.4-94.8) fL MCH (25.6-32.2) pg MCHC (32.2-35.5) g/dL RDW (11.7-14.4) % Plt Count (182-369) x10^3/uL MPV (9.4-12.3) fL Gran % (34.0-71.1) % Immature Gran % (Auto) (0.001-0.429) % Nucleat RBC Rel Count (0.00-0.2) % Eos # (Auto) (0.04-0.36) x10^3/uL Immature Gran # (Auto) (0.001-0.031) x10^3u/L Absolute Lymphs (auto) (1.18-3.74) x10^3/uL Absolute Monos (auto) (0.24-0.86) x10^3/uL Absolute Nucleated RBC (0.00-0.012) x10^3u/L Lymphocytes % (19.3-51.7) % Monocytes % (4.7-12.5) % Eosinophils % (0.7-5.8) % Basophils % (0.1-1.2) % Absolute Granulocytes (1.56-6.13) x10^3/uL Basophils # (0.01-0.08) x10^3/uL D-Dimer (0.0-0.50) mg/L Sodium (135-145) mmol/L Potassium (3.5-5.1) mmol/L Chloride (98-107) mmol/L Carbon Dioxide (22-30) mmol/L Anion Gap (5-15) MEQ/L BUN (7-17) mg/dL Creatinine (0.52-1.04) mg/dL Estimated GFR ML/MIN Glucose (74-106) mg/dL Calcium (8.4-10.2) mg/dL Total Bilirubin (0.2-1.3) mg/dL AST (14-36) U/L ALT (0-35) U/L Alkaline Phosphatase (38-126) U/L Troponin I < 0.012 (0.000-0.033) ng/mL NT-Pro-B Natriuret Pep < 20.0 (<300) pg/mL Serum Total Protein (6.3-8.2) g/dL Albumin (3.5-5.0) g/dL Urine Color Yellow (Yellow) Urine Appearance Clear (Clear) Urine pH 6.5 (4.6-8.0) Ur Specific [place] <=1.005 (1.005-1.030) Urine Protein Negative (Negative) Urine Glucose (UA) Negative (Negative) mg/dL Urine Ketones Negative (Negative) Urine Blood Small A (Negative) Urine Nitrite Negative (Negative) Urine Bilirubin Negative (Negative) Urine Urobilinogen 0.2 (0.2) mg/dL Ur Leukocyte Esterase Negative (Negative) U Hyaline Cast (Auto) NONE SEEN (0-2) /LPF Urine Microscopic RBC 0-2 (0-5) /HPF Urine Microscopic WBC 0-2 (0-5) /HPF Ur Epithelial Cells None Seen (None Seen) /HPF Urine Bacteria None Seen (None Seen) /HPF Urine Culture Reflexed NO (NO) Influenza Type A Ag (NEGATIVE) Influenza Type B Ag (NEGATIVE) RSV (PCR) (NEGATIVE) SARS-CoV-2 (PCR) (NEGATIVE) Group A Strep Antibody (NEGATIVE) - Radiology Impressions Radiology Exams & Impressions: Radiology Procedures Category Date Time Status CHEST 1 VIEW (PORTABLE) Stat Exams 04/11/24 04:23 Taken - Other Procedures and Tests Respiratory Therapy 04/11/24 00:16 Respiratory Therapy Assessment DAILY Assessment/Plan (1) ACS (acute coronary syndrome) Current Visit: Yes Status: Acute Code(s): I24.9 - ACUTE ISCHEMIC HEART DISEASE, UNSPECIFIED (2) Chest pain Current Visit: Yes Status: Acute Code(s): R07.9 - CHEST PAIN, UNSPECIFIED (3) Acute bronchitis Current Visit: No Status: Acute Code(s): J20.9 - ACUTE BRONCHITIS, UNSPECIFIED (4) Diabetes Current Visit: No Status: Chronic Code(s): E11.9 - TYPE 2 DIABETES MELLITUS WITHOUT COMPLICATIONS Telemedicine Encounter - Telemedicine Encounter Telemedicine Encounter: The entirety of this encounter was performed via TelemedicineThis visit was performed using real-time audio and video connection between my location and thepatients locationwith the assistance of a surrogateat the patients location. Written or verbal consent was obtained from the patient/guardian to perform this visit usingLumate technology. Any patient questions regarding the telemedicine interaction were answered. Acute hypoxemic respiratory failure Patient is currently on 5 L of urine to keep sat more than 90% Etiology seems underlying COPD versus pneumonia D dimer -ve, BNP wnr Will obtain CT chest without contrast for further evaluation and patient is suffering for last 2 months for ongoing cough Chest pain In the setting of history of coronary artery disease We will keep admit on telemetry Rule out ACS with 3 sets of troponin Will obtain repeat echocardiogram Hopefully she will get benefit from stress test in the morning Last tress test was 6 months ago with negative Acute COPD exacerbation Continue breathing therapy/Pulmicort Continue steroids Will add antibiotics Diabetes mellitus type 2 We will check HbA1c Continue sliding scale coverage for now Holding metformin Hypertension Blood pressure running toward softer side Keep holding home blood pressure meds for now History of congestive heart failure Currently euvolemic Echocardiogram back in 2020 showed ejection fraction 45% Will get a repeat echo Low-salt diet and fluid restriction be continued Bipolar disorder Resume home meds DVT prophylaxis SCD/Lovenox CODE STATUS full Discharging pending clinical stability. I have reviewed patient lab vitals and imaging in detail question and concerns were addressed
[2024-04-11] MEDS ORDERED: DUONEB 0.5-3 MG/3 ml Neb IH PRN (06:04)
[2024-04-11] MEDS ORDERED: HUMALOG SQ PRN (06:05)
[2024-04-11] MEDS ORDERED: PROTONIX 40 MG IV IV SCH (06:15)
[2024-04-11] MEDS: PULMICORT 0.5 MG/2 ML RESPULES IH SCH (07:54)
[2024-04-11 08:00] LABS: Hematocrit 46.5 % (34.1-44.9); Hemoglobin 15.7 g/dL (11.2-15.7); Mean Cell Volume 83.2 fL (79.4-94.8); Mean Corpuscular Hemoglobin 28.1 pg (25.6-32.2); Mean Corpuscular Hgb Concent. 33.8 g/dL (32.2-35.5); Mean Platelet Volume 9.9 fL (9.4-12.3); Platelet Count 320 x10^3/uL (182-369); Red Blood Count 5.59 x10^6/uL (3.93-5.22); Red Cell Distribution Width 12.3 % (11.7-14.4); White Blood Count 7.4 x10^3/uL (3.98-10.04)
[2024-04-11 08:21] LABS: ALBUMIN 4.6 g/dL (3.5-5.0); ANION GAP 16.7 MEQ/L (5-15); BILIRUBIN,TOTAL 0.4 mg/dL (0.2-1.3); Creatinine 1 0.75 mg/dL (0.52-1.04); EST GLOMERULAR FILTRATION RATE 96.3 ML/MIN; Potassium 4.9 mmol/L (3.5-5.1); Total Protein 7.3 g/dL (6.3-8.2)
--- NOTE | 2024-04-11 08:51 | XRAY ---
Indication: Pain. Comparison: December 21, 2023 Portable apical lordotic chest remains inflated and clear again with incidental calcified granulomas. Heart not enlarged. Bony thorax intact again with osteopenia and mild degenerative changes. Impression: Continued nonacute chest with chronic features.
[2024-04-11] MEDS: Vitamin B-12 500 MCG PO SCH (09:40)
[2024-04-11] MEDS: Geodon 20 MG Capsule PO SCH ×2 (09:40→22:08)
[2024-04-11] MEDS: ZOCOR 20MG PO SCH (09:40)
[2024-04-11] MEDS: Cymbalta 30 MG Capsule PO SCH (09:40)
[2024-04-11] MEDS: LASIX 20 MG PO SCH (09:40)
[2024-04-11] MEDS: Protonix 40MG Tablet PO SCH (09:40)
[2024-04-11] MEDS: lamISIL 250 MG PO SCH (09:41)
[2024-04-11] MEDS: Robaxin PO SCH (09:41)
[2024-04-11] MEDS: ENOXAPARIN SODIUM SQ SCH (09:42)
[2024-04-11] MEDS ORDERED: NON-FORMULARY ITEM (Cyanocobalamin (Vitamin B-12) [Vitamin B12] 2,500 MCG Tablet) PO SCH (10:00)
[2024-04-11] MEDS ORDERED: NON-FORMULARY ITEM (Duloxetine Hcl [Cymbalta] 60 MG Capsule.Dr) PO SCH (10:00)
[2024-04-11] MEDS ORDERED: NON-FORMULARY ITEM (Atorvastatin Calcium [Atorvastatin Calcium] 20 MG Tablet) PO SCH (10:00)
--- NOTE | 2024-04-11 10:44 | XRAY ---
Indication: Cough 2 months. Normal chest x-ray. Multiple contiguous axial images obtained through the chest without contrast. Comparison: December 21, 2023 Lungs again demonstrates incidental tiny left perihilar and small lingula calcified granulomas. There is now minimal bibasilar subsegmental atelectasis/scarring. No infiltrate or effusion. Heart not enlarged again with scattered coronary calcifications. Aorta is normal in course and caliber. Stable tiny subcarinal calcified nodes. No pathologic mediastinal lymphadenopathy. Bony thorax intact again with mild degenerative changes throughout spine. Limited upper abdomen again demonstrates fatty liver and cholecystectomy clips. Impression: New bibasilar atelectasis/scarring. Again chronic findings including degenerative spondylosis, fatty liver, and old granulomatous disease. Remaining CT chest without contrast exam is negative.
[2024-04-11] MEDS: solu-MEDROL 40 MG, Sterile H2O 10 ml 1 ML IV SCH (13:49)
[2024-04-11] MEDS ORDERED: solu-MEDROL IV SCH (14:00)
[2024-04-11] MEDS: Zithromax 500 MG/ 250 ML NaCl Premix 500 MG/250 ML IVPB IV SCH (21:05)
[2024-04-11] MEDS: ROCEPHIN 1 GM / 100 ML NaCl 1 GM/100 ML IVPB IV SCH (21:05)
[2024-04-11] MEDS ORDERED: ZIPRASIDONE HCL 40 MG PO SCH (22:00)
[2024-04-11] MEDS ORDERED: NON-FORMULARY ITEM (Trazodone Hcl [Trazodone Hcl] 100 MG Tablet) PO SCH (22:00)
[2024-04-11] MEDS: DESYREL 50 MG PO SCH (22:08)
[2024-04-12 05:36] LABS: Hematocrit 44.7 % (34.1-44.9); Hemoglobin 14.8 g/dL (11.2-15.7); Mean Cell Volume 83.9 fL (79.4-94.8); Mean Corpuscular Hemoglobin 27.8 pg (25.6-32.2); Mean Corpuscular Hgb Concent. 33.1 g/dL (32.2-35.5); Mean Platelet Volume 10.6 fL (9.4-12.3); Platelet Count 343 x10^3/uL (182-369); Red Blood Count 5.33 x10^6/uL (3.93-5.22); Red Cell Distribution Width 12.6 % (11.7-14.4); White Blood Count 16.5 x10^3/uL (3.98-10.04)
[2024-04-12 05:53] LABS: ANION GAP 10.8 MEQ/L (5-15); Calcium 9.7 mg/dL (8.4-10.2); Creatinine 1 0.77 mg/dL (0.52-1.04); EST GLOMERULAR FILTRATION RATE 93.3 ML/MIN; MAGNESIUM 2.2 mg/dL (1.6-2.3); Potassium 4.1 mmol/L (3.5-5.1)
[2024-04-12 08:21] VITALS: BP 154/75; PULSE 79; RESP 18; TEMP 97.1
[2024-04-12] MEDS: ECOTRIN 81 MG PO SCH (09:11)
--- NOTE | 2024-04-12 09:11 | PCM.DS ---
Discharge Summary Date of Admission: 04/11/24 05:25 Date of Discharge: 04/12/24 Admitting Physician: ISRAEL ABDI MD Primary Care Provider: BALDEV CRUZ Allergies Allergies meperidine [From Demerol] Allergy (Intermediate, Verified 04/10/24 23:36) Hives morphine Adverse Reaction (Severe, Verified 04/10/24 23:36) Swelling of Tongue and Lips burning, no rash Hospital Summary - Hospital Course Hospital Course: 53 years old very pleasant lady with past medical history significant for COPD, using 3 liter oxygen at night only, diabetes mellitus type 2, hypertension, coronary artery disease status post stent 15 years ago, prior history of TIA, congestive heart failure, bipolar disorder. She came to ER on 04/11/24 complaining of chest pain that started since yesterday. Patient told me she has been struggling with her COPD and got treated twice in the last 2 months with steroids and antibiotics. She keeps having dry cough that really bothering her. Since yesterday he started having chest pain radiating to her left arm but not to the jaw and neck area. She she told me it is burning-like. She did report having a history of gastroesophageal reflux. Her last stress test was 6 months ago. She further told me her cough is little bit better but not whole lot. On admission she was on 5 L oxygen to keep her sats more than 90%. On admission Lab workup was essentially unremarkable except hypokalemia, Trop x3 negative, and BNP. - Vitals & Intake/Output Vital Signs: Vital Signs Temperature 97.1 F 04/12/24 08:00 Pulse Rate 79 04/12/24 08:00 Respiratory Rate 18 04/12/24 08:00 Blood Pressure 154/75 04/12/24 08:00 O2 Sat by Pulse Oximetry 97 04/12/24 08:00 Intake & Output: Intake & Output 04/09/24 04/10/24 04/11/24 04/12/24 11:59 11:59 11:59 11:59 Intake Total 555 2508 Balance 555 2508 Weight 89.2 kg - Lab Result Diagrams: 04/12/24 05:15 04/12/24 05:15 Lab Results-Last 24 Hrs: Lab Results-Last 24 Hours 04/11/24 04/11/24 04/11/24 Range/Units 11:07 16:14 21:53 WBC (3.98-10.04) x10^3/uL RBC (3.93-5.22) x10^6/uL Hgb (11.2-15.7) g/dL Hct (34.1-44.9) % MCV (79.4-94.8) fL MCH (25.6-32.2) pg MCHC (32.2-35.5) g/dL RDW (11.7-14.4) % Plt Count (182-369) x10^3/uL MPV (9.4-12.3) fL Sodium (135-145) mmol/L Potassium (3.5-5.1) mmol/L Chloride (98-107) mmol/L Carbon Dioxide (22-30) mmol/L Anion Gap (5-15) MEQ/L BUN (7-17) mg/dL Creatinine (0.52-1.04) mg/dL Estimated GFR ML/MIN Glucose (74-106) mg/dL POC Glucometer 174 H 172 H 220 H (74 to 106) mg/dL Calcium (8.4-10.2) mg/dL Magnesium (1.6-2.3) mg/dL 04/12/24 04/12/24 04/12/24 Range/Units 05:15 05:15 07:25 WBC 16.5 H (3.98-10.04) x10^3/uL RBC 5.33 H (3.93-5.22) x10^6/uL Hgb 14.8 (11.2-15.7) g/dL Hct 44.7 (34.1-44.9) % MCV 83.9 (79.4-94.8) fL MCH 27.8 (25.6-32.2) pg MCHC 33.1 (32.2-35.5) g/dL RDW 12.6 (11.7-14.4) % Plt Count 343 (182-369) x10^3/uL MPV 10.6 (9.4-12.3) fL Sodium 139 (135-145) mmol/L Potassium 4.1 (3.5-5.1) mmol/L Chloride 105 (98-107) mmol/L Carbon Dioxide 27 (22-30) mmol/L Anion Gap 10.8 (5-15) MEQ/L BUN 14 (7-17) mg/dL Creatinine 0.77 (0.52-1.04) mg/dL Estimated GFR 93.3 ML/MIN Glucose 165 H (74-106) mg/dL POC Glucometer 166 H (74 to 106) mg/dL Calcium 9.7 (8.4-10.2) mg/dL Magnesium 2.2 (1.6-2.3) mg/dL Micro Results-Entire Visit: Microbiology 04/10/24 00:35 Blood Culture - Preliminary Blood NO GROWTH TO DATE 04/10/24 00:30 Blood Culture - Preliminary Blood NO GROWTH TO DATE Accuchecks Date 04/12/24 Date 04/11/24 Time 21:55 - Radiology Exams Ordered Rad Exams-Entire Visit: Radiology Procedures Category Date Time Status CHEST 1 VIEW (PORTABLE) Stat Exams 04/11/24 04:23 Completed CHEST WITHOUT CONTRAST [CT] Routine Exams 04/11/24 08:00 Completed ECHO W/2D AND DOPPLER [US] Routine Exams 04/11/24 08:00 Taken - Procedures and Test Procedures and Tests throughout Hospitalization: Therapy Orders & Screens 04/11/24 00:16 Respiratory Therapy Assessment DAILY Comment: 04/11/24 06:37 RT Screen per Nursing Assess ONCE Comment: Protocol Order Physician Instructions: Greater than 3 points order RT Admission Screen Reason For Exam: Triggered on Admission Diagnosis: Chest pain, ACS, COPD exacerbation Diagnosis: Chest pain, ACS, COPD exacerbation Pneumonia: No Home O2: Yes Asthma: No CHF: No Home CPAP/BIPAP: No Home Nebs/MDI: Yes Total Points: 10 Smoking Cessation Education ONCE Comment: Diagnosis: Chest pain, ACS, COPD exacerbation Smoking Status: Current every day smoker How long have you smoked: 18yo Have you smoked in the past 12 months: Yes Approximately how many cigarettes per day: 1 pack/day Do you dip or chew tobacco: No 04/11/24 07:40 RT Miscellaneous Order ROUTINE Comment: Physician Instructions: Reason For Exam: wean O2 keep > 92%- baseline 3lNC at night Diagnosis: Chest pain, ACS, COPD exacerbation 04/11/24 07:55 Oxygen Oxymask LPM 5 lpm Comment: Diagnosis: Chest pain, ACS, COPD exacerbation Discharge Exam General Appearance: no apparent distress, alert Neurologic Exam: alert, oriented x 3, cooperative, normal mood/affect, nml cerebellar function, sensation nml, No motor deficits Eye Exam: PERRL, EOMI, eyes nml inspection Ears, Nose, Throat Exam: normal ENT inspection, pharynx normal, moist mucous membranes Neck Exam: normal inspection, non-tender, supple, full range of motion Respiratory Exam: normal breath sounds, wheezing, No respiratory distress Cardiovascular Exam: regular rate/rhythm, normal heart sounds Gastrointestinal/Abdomen Exam: soft, No tenderness, No mass Pelvic Exam: deferred Rectal Exam: deferred Back Exam: normal inspection, normal range of motion, No CVA tenderness, No vertebral tenderness Extremity Exam: normal inspection, normal range of motion Skin Exam: normal color, warm, dry Final Diagnosis/Problem List - Final Discharge Diagnosis/Problem (1) COPD exacerbation Current Visit: Yes Status: Acute Assessment & Plan: - On baseline 3lNC - Ceftriaxone, azithromycin, duonebs, pulmicort - CXR Impression: Continued nonacute chest with chronic features. - Chest CT: Impression: New bibasilar atelectasis/scarring. Again chronic findings including degenerative spondylosis, fatty liver, and old granulomatous disease. Remaining CT chest without contrast exam is negative. - CBC, CMP reviewed - WBC 16.5 - Continue OP steroids, inhaler, antibiotics Code(s): J44.1 - CHRONIC OBSTRUCTIVE PULMONARY DISEASE W (ACUTE) EXACERBATION (2) Chest pain Current Visit: Yes Status: Resolved Assessment & Plan: - resolved - Echo EF 38.1% with- Grade I diastolic dysfunction - Follow [facility]- appointment made - Trop x3 negative Code(s): R07.9 - CHEST PAIN, UNSPECIFIED (3) Hypokalemia Current Visit: Yes Status: Resolved Assessment & Plan: - resolved Code(s): E87.6 - HYPOKALEMIA (4) Shortness of breath Current Visit: Yes Status: Resolved Assessment & Plan: - on baseline 3LNC - 2:2 COPD exacerbation Code(s): R06.02 - SHORTNESS OF BREATH (5) Smoker Current Visit: No Status: Chronic Assessment & Plan: - daily - advised smoking cessation Code(s): F17.200 - NICOTINE DEPENDENCE, UNSPECIFIED, UNCOMPLICATED (6) Cannabis use disorder, moderate, dependence Current Visit: Yes Status: Chronic Assessment & Plan: - Pt states she smokes every night before going to bed. - advised cessation Code(s): F12.20 - CANNABIS DEPENDENCE, UNCOMPLICATED (7) CHF (congestive heart failure) Current Visit: Yes Status: Acute Assessment & Plan: - Echo EF 38.1% with- Grade I diastolic dysfunction - Follow [facility]- appointment made - no in acute exacerbation - BNP <20 Code(s): I50.9 - HEART FAILURE, UNSPECIFIED (8) Diabetes type 2 Current Visit: Yes Status: Chronic Assessment & Plan: - Continue metformin today - refused s/s and accuchecks (9) HTN (hypertension) Current Visit: Yes Status: Chronic Assessment & Plan: - Continue BP meds today - BP stable Code(s): I10 - ESSENTIAL (PRIMARY) HYPERTENSION - Discharge Discharge Date: 04/12/24 Disposition: Home, Self-Care Condition: Stable Prescriptions: New Prednisone 20 mg [Deltasone 20 mg] 20 mg PO BID 5 Days #10 tablet Albuterol Common Canister [Ventolin Common Canister] 2 puff IH Q4-6HPRN PRN 1 Days #1 inhaler PRN Reason: Shortness Of Breath/Wheezing Cefpodoxime Proxetil 200 mg [Vantin 200 mg] 200 mg PO BID 5 Days #10 tablet Budesonide/Formoterol Fumarate [Budesonide-Formoterol 160-4.5] 10.2 gm IH BID 30 Days #1 inhaler Continue Duloxetine HCl [Cymbalta] 60 mg PO DAILY hydroCHLOROthiazide [Hydrochlorothiazide] 12.5 mg PO DAILY Metformin HCl 500 mg [Glucophage 500 MG] 500 mg PO BID Trazodone HCl 100 mg PO HS Furosemide 20 mg [Lasix 20 mg] 20 mg PO DAILY Aspirin EC 81 mg [Ecotrin 81 mg] 81 mg PO DAILY ziprasidone HCL [Ziprasidone HCl] 40 mg PO HS ziprasidone HCL [Ziprasidone HCl] 20 mg PO DAILY terbinafine HCL [Terbinafine HCl] 250 mg PO DAILY Atorvastatin Calcium 20 mg PO DAILY Omeprazole 20 mg PO DAILY Cyanocobalamin (Vitamin B-12) [Vitamin B12] 1,000 mcg PO DAILY methocarbamoL [Methocarbamol] 500 mg PO BID Lisinopril 20 mg [Zestril 20 MG] 20 mg PO DAILY Follow up with: BALDEV CRUZ [Primary Care Provider] - 04/16/24 9:30 am ARVIND NICHOLS NP [NON-STAFF PHY W/O PRIVILEGES] - 06/12/24 2:15 pm ([place] Office) SUSAN CASTRO MD [CONSULTING PHYSICIAN] - 04/13/24 11:15 am
[2024-04-12] MEDS: Zestril 20 MG PO SCH (09:42)
[2024-04-12] MEDS: Glucophage 500 MG PO SCH (09:42)
[2024-04-12] MEDS: hydroDIURIL 25 MG PO SCH (09:42)
[2024-04-12] MEDS ORDERED: NON-FORMULARY ITEM (Omeprazole [Omeprazole] 20 MG Capsule.Dr) PO SCH (10:00)
[2024-04-12] MEDS ORDERED: NON-FORMULARY ITEM (Hydrochlorothiazide [Hydrochlorothiazide] 12.5 MG Capsule) PO SCH (10:00)
[2024-04-12 11:23] VITALS: O2SAT 93
== END 2024-04-12 11:00 | disposition home or self-care (01) ==
LOC: ED 23:18 → MED SURG 04-11 05:25
PROVIDERS: ADMIT Internal Medicine; ATTEND Internal Medicine
DX: J44.1 Chronic obstructive pulmonary disease with (acute) exacerbation (principal); Z59.82 Transportation insecurity; Z99.81 Dependence on supplemental oxygen; R07.9 Chest pain, unspecified; E87.6 Hypokalemia; R06.02 Shortness of breath; F17.200 Nicotine dependence, unspecified, uncomplicated; F12.20 Cannabis dependence, uncomplicated; I11.0 Hypertensive heart disease with heart failure; I50.9 Heart failure, unspecified; E11.9 Type 2 diabetes mellitus without complications; Z79.899 Other long term (current) drug therapy; E78.5 Hyperlipidemia, unspecified; I25.2 Old myocardial infarction; F31.9 Bipolar disorder, unspecified
CPT/HCPCS: 0241U; 36415; 71045; 71250; 80048; 80053; 81001; 82947; 83735; 83880; 84484; 85025; 85027; 85379; 87040; 87651; 93005; 93041; 93306; 94640; 94760; 96374; 99285; Q3014; J0456; J0696; J2919; J3475; J7609; A9270-GY